=== PATIENT | female | born 1950 | race African-American/Black ===

== ENCOUNTER 2018-02-07 15:24 | Emergency (ER) | payer MEDICARE ==
[2018-02-07 16:30] LABS: Troponin I 0.027 ng/mL (< 0.028)
== END 2018-02-07 17:05 | disposition home or self-care (01) ==
LOC: ERS 15:24
DX: J40 Bronchitis, not specified as acute or chronic (principal); R07.89 Other chest pain; I25.10 Atherosclerotic heart disease of native coronary artery without angina pectoris; I25.2 Old myocardial infarction; I10 Essential (primary) hypertension; E78.00 Pure hypercholesterolemia, unspecified; J44.9 Chronic obstructive pulmonary disease, unspecified; F17.210 Nicotine dependence, cigarettes, uncomplicated; Z71.6 Tobacco abuse counseling
CPT/HCPCS: 36415; 82553; 84484; 93005; 99406

== ENCOUNTER 2018-08-30 09:28 | Outpatient (CLI) | payer MEDICAID, MEDICARE ==
--- NOTE | 2018-08-30 11:41 | BD ---
DEXA BONE MINERAL DENSITOMETRY STUDY 08/30/2018 HISTORY: Postmenopausal. FINDINGS LUMBAR SPINE BMD (g/cm2) T-SCORE Z-SCORE L1 0.942 -0.4 1.4 L2 1.093 0.6 1.9 L3 1.199 1.0 2.5 L4 1.292 2.1 4.3 L1-L4 1.14 0.8 2.2 RIGHT FEMORAL NECK 0.766 -0.7 0.1 TOTAL FEMUR 0.876 -0.5 0.1 IMPRESSION: 1. Normal bone mineralization of the lumbar spine and left femoral neck. 2. The 10 year major osteoporotic risk fracture is 12%, with the 10 year hip fracture risk of 2.6%. POS: [facility]
== END 2018-08-30 09:29 | disposition home or self-care (01) ==
LOC: BICMAMMO 09:28
PROVIDERS: ATTEND Family Medicine
DX: Z12.31 Encounter for screening mammogram for malignant neoplasm of breast (principal); Z01.419 Encounter for gynecological examination (general) (routine) without abnormal findings; Z13.820 Encounter for screening for osteoporosis; Z78.0 Asymptomatic menopausal state
CPT/HCPCS: 77063; 77067; 77080

== ENCOUNTER 2018-11-21 20:08 | Observation (INO) | payer MEDICARE ==
[2018-11-21] MEDS ORDERED: cloNIDine 0.1 MG TAB PO PRN (22:50)
[2018-11-21] MEDS ORDERED: Nitroglycerin 0.4 MG TAB (25 Tab Bottle) SL PRN (22:50)
[2018-11-21] MEDS ORDERED: Acetaminophen 325 MG TAB PO PRN (22:51)
[2018-11-21] MEDS ORDERED: Zolpidem Tartrate 5 MG TAB PO PRN (22:51)
[2018-11-21] MEDS ORDERED: Ondansetron ODT 4 MG TAB PO PRN (22:51)
[2018-11-21] MEDS ORDERED: Calcium Carbonate 500 MG ChewTAB PO PRN (22:51)
[2018-11-21] MEDS ORDERED: Senokot S 8.6-50 MG TAB PO PRN (22:51)
[2018-11-21] MEDS ORDERED: Bisacodyl 5 MG TAB PO PRN (22:51)
[2018-11-21] MEDS ORDERED: Ondansetron PF 4 MG/2 ML Vial IVP PRN (22:51)
[2018-11-21] MEDS ORDERED: Sodium Chloride 0.9% 1,000 ML IV SCH (23:00)
[2018-11-22] MEDS ORDERED: cefTRIAXone\\ROCEPHIN 1 GM in Sodium Chloride 0.9% 100 ML IVPB SCH (03:00)
[2018-11-22] MEDS ORDERED: Azithromycin 500 MG in Sodium Chloride 0.9% 250 ML 250 ML IVPB SCH (04:00)
[2018-11-22 05:11] LABS: #Basophils 0.1 thou/uL (0.0-0.2); #Eosinphils 0.2 thou/uL (0.0-0.7); #Lymphocytes 1.2 thou/uL (1.20-3.40); #Monocytes 0.5 thou/uL (0.11-0.59); #Neutrophils 3.6 thou/uL (1.40-6.50); %Basophils 1.2 % (0.0-1.0); %Eosinophils 4.4 % (0.0-10.0); %Lymphocytes 22.3 % (21.0-51.0); %Monocytes 8.3 % (0.0-10.0); %Neutrophils 63.8 % (42.0-75.0); Hemoglobin 14.3 g/dL (12.0-16.0); Mean Corpuscular HGB CONC 32.6 g/dL (32.0-36.0); Mean Corpuscular Volume 85.7 fL (78.0-98.0); Mean Platelet Volume 7.9 fL (7.4-10.4); Platelet Count 221 thou/uL (130-400); RBC Distribution Width 14.2 % (11.5-14.5); Red Blood Cell (RBC) Count 5.12 mill/uL (4.20-5.40); White Blood Cell (WBC) Count 5.6 thou/uL (4.8-10.8)
[2018-11-22 05:30] LABS: Anion Gap 13 mmol/L (10-20); BUN (Urea Nitrogen) 17 mg/dL (9.8-20.1); Calc. Creatinine Clearance 55 mL/min (70-130); Calcium 9.6 mg/dL (7.8-10.44); Carbon Dioxide 27 mmol/L (23-31); Cardiac Risk 3.7 (Less than 4.5); Chloride 103 mmol/L (98-107); Cholesterol 149 mg/dl (< 200 Desired); Estimated GFR-MDRD 56; Glucose 97 mg/dL (80-115); HDL Cholesterol 40 mg/dL (>60 Neg Risk); LDL Cholesterol, Calculated 89 mg/dL; Potassium 3.5 mmol/L (3.5-5.1); Sodium 139 mmol/L (136-145); Triglycerides 99 mg/dL (Less than 150)
[2018-11-22] MEDS ORDERED: Clopidogrel Bisulfate 75 MG TAB PO SCH (09:00)
[2018-11-22] MEDS ORDERED: Carvedilol 6.25 MG TAB PO SCH (09:00)
[2018-11-22] MEDS ORDERED: Famotidine/PF 20 mg/2ml Vial SLOW IVP SCH (09:00)
[2018-11-22] MEDS ORDERED: Pregabalin 25 MG CAP PO SCH (09:00)
[2018-11-22] MEDS ORDERED: Potassium Chloride 20 MEQ TAB PO SCH (09:00)
[2018-11-22] MEDS ORDERED: Famotidine 20 MG TAB PO SCH ×2 (09:00)
[2018-11-22] MEDS ORDERED: Enoxaparin Sodium 30 MG/0.3 ML SYRINGE SC SCH (09:00)
--- NOTE | 2018-11-22 13:43 | CON ---
DATE OF CONSULTATION: 11/22/2018 REASON FOR CONSULTATION: Chest pain. PRIMARY CUSTOMER RETENTION REPRESENTATIVE: Nash Jc MD HISTORY OF PRESENT ILLNESS: Ms. Travis is a pleasant 68-year-old female, who comes to the hospital for chest pain. She was cooking for the New Years yesterday morning and she started having a chest tightness in the middle part of her chest, reminded her when she had angina in the past. She took some sublingual nitroglycerin and her pain got a little bit better. When she told her family members, they encouraged her to come to the hospital. She is currently chest pain-free. She is ruled out with negative troponins x1 here in the hospital. She has a history of coronary artery disease. She had a heart catheterization back in February [address] Jc, at which point, she had a stent to her LAD for an 80% lesion. She had moderate disease otherwise. She also has first RPL stenosis that is about 70% that is not amenable to revascularization by catheter. She has been treated medically for this. She had a stress test in the office in November 2017, and this was unremarkable for ischemia and her EF was normal. Currently, she feels better. She has been dealing with this cough with what appears to be a bronchitis in the last few weeks and she has been coughing a lot more lately as well and it hurts when she coughs. PAST MEDICAL HISTORY: 1. COPD. 2. Ongoing tobacco abuse. 3. Hypertension. 4. Bronchial asthma. 5. Peripheral vascular disease, status post stents to the bilateral lower extremities. 6. Degenerative joint disease of the spine. 7. Coronary artery disease, status post stenting to the LAD as well. PAST SURGICAL HISTORY: 1. Hip replacement x2. 2. Bilateral tubal ligation. SOCIAL HISTORY: with 5 kids. Current smoker, half pack a day. Occasional alcohol use. No drug use. 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 OUTPATIENT MEDICATIONS: Include: 1. Clonidine 0.1 mg b.i.d. 2. Lyrica. 3. Pravastatin 40 mg at bedtime. 4. Potassium chloride 20 mEq a day. 5. Sublingual nitroglycerin p.r.n. 6. Lisinopril 40 mg a day. 7. Hydrochlorothiazide 25 mg a day. 8. Plavix 75 mg a day. 9. Vitamin D3. 10. Coreg 12.5 b.i.d. 11. Aspirin 81 a day. 12. Amlodipine 5 mg a day. ALLERGIES: NO KNOWN DRUG ALLERGIES. REVIEW OF SYSTEMS: 12-point review of systems was done and was found to be negative unless stated in the history of present illness. FAMILY HISTORY: Mother with an MT including children with hypertension, diabetes. PHYSICAL EXAMINATION: VITAL SIGNS: Temperature 98.4, pulse 69, respiratory rate 16, saturations 96% on 2 L nasal cannula, blood pressure 182/77. GENERAL: Awake, alert, oriented x3. No distress. HEENT: Normocephalic and atraumatic. NECK: Supple. LUNGS: Reduced breath sounds bilaterally. CARDIOVASCULAR: S1 and S2. No S3 or S4. She has a grade 2/6 systolic murmur at right upper sternal border. ABDOMEN: Soft. Positive bowel sounds. EXTREMITIES: No edema. SKIN: Warm and dry. LABORATORY DATA: Laboratory work was reviewed. CBC and chemistries are unremarkable. Troponin is negative x2. EKG was reviewed. Echocardiogram was reviewed. ASSESSMENT: 1. Chest pain. 2. Coronary artery disease. 3. Vtcomspf-[id number]-nqkzbq aortic insufficiency. PLAN: 1. We will get a urine drug screen. 2. We will get one more set of troponins. If this is negative, we will plan on trying her antianginal regimen. We will probably go up on the Imdur to 90 mg a day. 3. She will follow up with Dr. Jc's office in 1 month and if her pain continues, she may need a repeat heart catheterization. 4. Tobacco cessation counseling was performed. 5. Pending results of repeat troponin and urine drug screen. Job ID: [id number]
[2018-11-22 14:49] LABS: Amphetamine Not Detected (NotDetected); Barbiturates Screen Not Detected (NotDetected); Benzodiazepine Screen Not Detected (NotDetected); Cocaine Metabolite Screen Not Detected (NotDetected); Medtox Control Line Valid? VALID (VALID); Medtox Reader # READER 4; Methadone Not Detected (NotDetected); Methamphetamine Not Detected (NotDetected); Opiate Screen Detected (NotDetected); Oxycodone Screen Not Detected (NotDetected); Phencyclidine (PCP) Not Detected (NotDetected); THC/Cannabinoid Screen Not Detected (NotDetected); Tricyclic Screen Not Detected (NotDetected)
[2018-11-22 15:39] VITALS: TEMP 98.8
[2018-11-22 16:02] VITALS: BP 179/79
[2018-11-22] MEDS ORDERED: ISOVUE-370 76%-LOCM 1 ML ONE (16:19)
--- NOTE | 2018-11-22 17:08 | CT ---
CT PULMONARY ANGIOGRAM CHEST WITH 3D RENDERIN11/22/18 HISTORY: 68-year-old female with history of chest pain and shortness of breath for two days. There are diffuse extensive scattered emphysema changes throughout both lungs primarily in the upper and mid lung zones. There is dilatation of the main pulmonary artery measuring up to approximately 3. 7 cm. There appears to be dilatation of the left atrium. There are three vessel coronary artery calci fic changes. No convincing CT evidence for acute pulmonary emboli. No pleural effusion or pericardial effusion. No evidence for aortic aneurysm. Visualized upper abdomen is unremarkable. There is promi nent left sided arterial vascular calcifications. IMPRESSION: No convincing CT evidence for acute pulmonary embolism. Scattered chronic lung changes with some mini mal bibasilar posterior thickening extensive diffuse emphysema changes throughout the lungs particul ward the upper had mid lung zones. Some dilatation of the left main pulmonary artery and left atrium. Three vessel coronary artery calcific changes. No acute pleural effusion or pericardial effusion. POS: [facility]
--- NOTE | 2018-11-22 17:52 | DIS ---
DATE OF ADMISSION: 11/21/2018 DATE OF DISCHARGE: 11/22/2018 PRIMARY CARE PROVIDER: Valerie Gillette MD DISCHARGE DIAGNOSES: 1. Chest pain. 2. Most likely musculoskeletal etiology for the chest pain. CONSULATION DURING THIS HOSPITALIZATION: Cardiology, Dr. Hubbard. CONDITION OF PATIENT ON THE DAY OF DISCHARGE: Stable. I assessed Ms. Travis on the day of discharge. She denies any chest pain or shortness of breath. Vital signs are stable. S1 and S2 are heard, regular. Lungs are clear to auscultation bilaterally. DISCHARGE MEDICATIONS: 1. Amlodipine 5 mg daily. 2. Clonidine 0.1 mg 2 times a day. 3. Potassium chloride 20 mEq daily. 4. Pravastatin 40 mg at bedtime. 5. Lyrica 25 mg two times a day. 6. Aspirin 81 mg daily. 7. Coreg 12.5 mg 2 times a day. 8. Vitamin D3 2000 units daily. 9. Plavix 75 mg daily. 10. Hydrochlorothiazide 25 mg daily. 11. Lisinopril 40 mg daily. 12. Nitroglycerin p.r.n. 13. Isosorbide mononitrate has been started during this admission at 30 mg daily. HOSPITAL COURSE: Ms. Travis is a pleasant 68-year-old lady who was admitted to [facility] on November 21, 2018 for chest pain. She was seen by Cardiology Service. Her cardiac enzymes were normal. She has been started on isosorbide mononitrate for anginal control and has been cleared for discharge by Cardiology Service. She had an elevated D-dimer. However, CT angiogram of the chest did not show any convincing evidence of acute pulmonary embolism. She has scattered chronic lung changes with some minimal bibasilar posterior thickening, extensive diffuse emphysema changes throughout the lungs. She has some dilatation of the left main pulmonary artery and left atrium. A 2D echocardiogram done during this hospitalization showed left ventricular ejection fraction of 55% to 60%, severely dilated left atrium, moderately enlarged right atrium size, [id number] aortic regurgitation, mild mitral regurgitation, mild tricuspid regurgitation, and mild pulmonic regurgitation. Her chest pain resolved following admission. She is being discharged home in a stable condition. On November 22, she has a white count of 5600, hemoglobin 14.3, platelet count 221,000, mildly elevated creatinine of 1.15, otherwise unremarkable comprehensive metabolic profile. Urine toxicology screen was positive for opiates. DISCHARGE DESTINATION: Home. Many thanks for allowing me to participate in your patient's care. Please feel free to contact me with any questions or concerns. Job ID: [id number]
[2018-11-22] MEDS ORDERED: Pravastatin Sodium 40 MG TAB PO SCH (21:00)
== END 2018-11-22 17:46 | disposition home or self-care (01) ==
LOC: ERS 20:08 → 2SW 22:25
PROVIDERS: ADMIT Internal Medicine; ATTEND Internal Medicine
DX: R07.9 Chest pain, unspecified (principal); I25.10 Atherosclerotic heart disease of native coronary artery without angina pectoris; I10 Essential (primary) hypertension; I73.9 Peripheral vascular disease, unspecified; I35.1 Nonrheumatic aortic (valve) insufficiency; J44.9 Chronic obstructive pulmonary disease, unspecified; M47.9 Spondylosis, unspecified; F17.210 Nicotine dependence, cigarettes, uncomplicated; Z95.5 Presence of coronary angioplasty implant and graft; Z96.649 Presence of unspecified artificial hip joint; Z98.51 Tubal ligation status; Z79.02 Long term (current) use of antithrombotics/antiplatelets; Z79.82 Long term (current) use of aspirin; Z79.899 Other long term (current) drug therapy
CPT/HCPCS: 71275; 80048; 80061; 80306; 84484 ×2; 85025; 85379; 93306; 94640 ×2; 94760 ×2; 96361; 96365; 96367; 96372; 96375; 96376; 99285; G0378 ×2; 36415; J0456; J0696; J1650; J2920; J7050; J7620; S0028

== ENCOUNTER 2019-10-15 15:39 | Observation (INO) | payer MEDICARE ==
[2019-10-15] MEDS ORDERED: Nitroglycerin 2% Ointment 1 INCH/1 GM Packet ONE (16:01)
[2019-10-15] MEDS ORDERED: Acetaminophen 325 MG TAB PO PRN ×2 (17:29→21:39)
[2019-10-15] MEDS ORDERED: Ondansetron PF 4 MG/2 ML Vial IVP PRN ×2 (17:29→21:39)
[2019-10-15] MEDS ORDERED: HYDROcodone/Acetaminophen 5/325 mg Tablet PO PRN ×2 (17:29)
[2019-10-15] MEDS ORDERED: Ondansetron ODT 4 MG TAB SL PRN (17:29)
[2019-10-15 17:40] VITALS: BMI 28.9
[2019-10-15] MEDS ORDERED: Aspirin Chewable 81 MG TAB PO SCH (18:00)
[2019-10-15] MEDS: Nitroglycerin 2% Ointment 1 INCH/1 GM Packet TOP SCH (18:33)
[2019-10-15 19:06] LABS: Troponin I Less than 0.010 ng/mL (< 0.028)
[2019-10-15] MEDS ORDERED: hydrALAZINE 20 MG/ML VIAL SLOW IVP PRN (19:29)
[2019-10-15] MEDS: Carvedilol 25 MG TAB PO SCH (19:57)
[2019-10-15] MEDS: Pregabalin 75 MG CAP PO SCH (19:58)
[2019-10-15] MEDS ORDERED: Pravastatin Sodium 40 MG TAB PO SCH (21:00)
[2019-10-15] MEDS ORDERED: cloNIDine 0.1 MG TAB PO SCH (21:00)
[2019-10-15] MEDS ORDERED: Acetaminophen 650 MG Suppository PR PRN (21:39)
[2019-10-15] MEDS ORDERED: Ondansetron ODT 4 MG TAB PO PRN (21:39)
[2019-10-15 22:46] LABS: Troponin I 0.022 ng/mL (< 0.028)
--- NOTE | 2019-10-15 23:44 | HP ---
TIME OF ASSESSMENT: 2100 hours. CHIEF COMPLAINT: Chest pain. HISTORY OF PRESENT ILLNESS: Ms Reyna Travis is a pleasant 68-year-old woman who presents with complaints of left-sided chest pain that started yesterday evening. She states she tends to have intermittent chest pain and has a known history of coronary artery disease with previous stents. She follows with Dr. Jc. The patient states that she usually takes nitroglycerin for pain, which helps, but since yesterday the pain has been persistent. She states it comes and goes and she describes it as a pressure on the left side of her chest. She thought it was being exacerbated by her chronic cough and denies any sputum or hemoptysis. Denies any shortness of breath. She has a known history of COPD and states she feels her breathing and cough is at baseline. Denies having any recent fevers, chills, or sweats. The patient states the pain was a 4/10 in severity yesterday evening and this morning became more severe. She decided to seek medical attention. She presented to the emergency department, where an EKG was done showing sinus arrhythmia with a rate of 73. She had occasional PVCs. No ST changes or T-wave abnormalities. The patient was given Nitro-Bid 1 inch topical. She had a chest x-ray done, which showed no acute cardiopulmonary processes. Initial troponin was negative. The patient states she has undergone a stress test in the last year. At this present time, the patient denies having any pain at all. She states this has pretty much gone since Nitro-Bid was placed. Denies any nausea, vomiting. No diaphoresis. No abdominal pain or cramping. Reports having regular bowel movements. No urinary symptoms. All other review of systems apart from those mentioned above are negative. PAST MEDICAL HISTORY: 1. Coronary artery disease. 2. COPD. 3. Hypertension. 4. Asthma. 5. Neuropathy. 6. History of MIs x2. PAST SURGICAL HISTORY: 1. Cardiac stents. 2. Hip replacement. SOCIAL HISTORY: The patient reports smoking one pack a day. Denies any alcohol consumption or illicit drug use. ALLERGIES: NO KNOWN DRUG ALLERGIES. CURRENT MEDICATIONS: 1. Lyrica. 2. Carvedilol. 3. Pravastatin. 4. Amlodipine. 5. Lisinopril. 6. Isosorbide mononitrate. 7. Clopidogrel. 8. Clonidine. 9. Potassium chloride. 10. Nitrostat sublingual. PHYSICAL EXAMINATION: GENERAL: The patient appears well developed, well nourished, is in no acute distress. VITAL SIGNS: Temperature 97.9, pulse 67, respirations 18, O2 saturation 96% on room air, blood pressure 157/68. HEENT: Normocephalic and atraumatic. Pupils are equal, round, and reactive to light. Sclerae without icterus. Oropharynx is clear. NECK: Supple without lymphadenopathy. LUNGS: Clear to auscultation bilaterally without wheezes, rales, or rhonchi. CARDIAC: Regular rate and rhythm without audible murmurs, rubs, or gallops. ABDOMEN: Soft, nontender, nondistended. Normoactive bowel sounds present. EXTREMITIES: No lower leg swelling or edema. NEUROLOGIC: Alert and oriented x3. SKIN: Without rash or jaundice. LABORATORY DATA: White count 6.3, hemoglobin 14.7, hematocrit 49.1, platelets 302, neutrophils 49.3%. Sodium 139, potassium 3.7, BUN 9, creatinine 0.91, GFR 74, glucose 87, calcium 9.9, total bilirubin 0.3, AST 21, ALT 24, alkaline phosphatase 97. CK 30. Troponin negative x2. BNP 143.9, total protein 7.7, albumin 3.9. Lipid panel done in March 2019. Triglycerides 116, cholesterol 158, LDL 89, HDL 46. IMAGING DATA: As mentioned above in HPI. IMPRESSION AND PLAN: Ms. Travis is a 68-year-old woman, presenting with chest pain who has been admitted for management of the following; 1. Acute coronary syndrome rule out. The patient with troponins negative x2 and EKG unremarkable. We will continue to trend troponins. She states she had a recent stress test with Dr. Jc less than a year ago and states it was normal. We will need to obtain these records. Consultation placed with Dr. Jc for tomorrow. The patient is pain free at present. 2. Hypertension. Monitor blood pressure. Resume home medications once verified. P.r.n. ordered. 3. Chronic obstructive pulmonary disease. Resume home medications once verified. P.r.n. DuoNeb. 4. Coronary artery disease. Resume home medications once verified. 5. Gastrointestinal prophylaxis. Famotidine. 6. Deep venous thrombosis prophylaxis. The patient is ambulatory. Mechanical SCDs ordered. 7. Code status full. Her surrogate decision maker is her daughter, Vasiliy Reilly. The patient's case discussed with attending who agrees with plan of care as described above. Job ID: [id number]
[2019-10-16] MEDS: Nitroglycerin 2% Ointment 1 INCH/1 GM Packet TOP SCH (00:25)
[2019-10-16 05:24] LABS: #Basophils 0.1 thou/uL (0.0-0.2); #Eosinphils 0.2 thou/uL (0.0-0.7); #Monocytes 0.7 thou/uL (0.11-0.59); #Neutrophils 2.3 thou/uL (1.40-6.50); %Basophils 0.9 % (0.0-1.0); %Eosinophils 3.8 % (0.0-10.0); %Lymphocytes 38.5 % (21.0-51.0); %Monocytes 12.5 % (0.0-10.0); %Neutrophils 44.2 % (42.0-75.0); Mean Corpuscular Hemoglobin 27.2 pg (27.0-31.0); Mean Corpuscular Volume 85.1 fL (78.0-98.0); Mean Platelet Volume 7.9 fL (7.4-10.4); Platelet Count 240 thou/uL (130-400); RBC Distribution Width 14.3 % (11.5-14.5); Red Blood Cell (RBC) Count 5.15 mill/uL (4.20-5.40); White Blood Cell (WBC) Count 5.3 thou/uL (4.8-10.8)
[2019-10-16 05:44] LABS: Anion Gap 12 mmol/L (10-20); BUN (Urea Nitrogen) 13 mg/dL (9.8-20.1); Calc. Creatinine Clearance 68 mL/min (70-130); Calcium 9.6 mg/dL (7.8-10.44); Carbon Dioxide 27 mmol/L (23-31); Chloride 100 mmol/L (98-107); Estimated GFR-MDRD 70; Glucose 90 mg/dL (80-115); Potassium 3.4 mmol/L (3.5-5.1); Sodium 136 mmol/L (136-145)
[2019-10-16] MEDS ORDERED: Lisinopril 20 MG TAB PO SCH (09:00)
[2019-10-16] MEDS ORDERED: Amlodipine 10 MG TAB PO SCH (09:00)
[2019-10-16] MEDS ORDERED: FLU VACC TS2019-20(65YR UP)/PF 180 MCG/0.5 ML SYRINGE IM ONE (09:00)
[2019-10-16] MEDS ORDERED: Aspirin Chewable 81 MG TAB PO SCH (09:00)
[2019-10-16] MEDS ORDERED: Hydrochlorothiazide 25 MG TAB PO SCH (09:00)
[2019-10-16] MEDS ORDERED: Isosorbide Mononitrate (ER) 30 MG TAB PO SCH (09:00)
[2019-10-16] MEDS ORDERED: Clopidogrel Bisulfate 75 MG TAB PO SCH (09:00)
[2019-10-16] MEDS ORDERED: Famotidine/PF 20 mg/2ml Vial SLOW IVP SCH (09:00)
[2019-10-16] MEDS: Pregabalin 75 MG CAP PO SCH (09:22)
[2019-10-16] MEDS: Carvedilol 25 MG TAB PO SCH (09:30)
[2019-10-16] MEDS ORDERED: Enoxaparin Sodium 80 MG/0.8 ML SYRINGE SC SCH (10:15)
[2019-10-16] MEDS ORDERED: Enoxaparin Sodium 30 MG/0.3 ML SYRINGE SC SCH (10:15)
--- NOTE | 2019-10-16 11:07 | CON ---
DATE OF CONSULTATION: PRIMARY COMBINER OPERATOR: Dr. Nash Jc. REASON FOR CONSULTATION: Chest pressure. HISTORY OF PRESENT ILLNESS: Ms. Reyna Travis is a very pleasant patient with history of coronary artery disease. She has had a long history of chest pains. She did have stent implantation by Dr. Jc in 2006. The patient had successful PTCA and stent placement in the right coronary artery, 3.5 x 16 Liberte stent. The patient did well following that. She did have recurrent chest pain in 2012 and was found to have no obstructive stenosis in the right coronary artery, but heavy calcification, borderline circumflex disease that was negative with an FFR, and a 50% to 70% stenosis in the LAD. She was treated medically at that time. The patient re-presented with increasing chest pain in 2016. At that time, underwent cardiac catheterization and was found to have worsening of the LAD lesion. It was treated with a 2.5 x 12 mm drug-coated stent, Synergy, and post dilated with a 3 mm x 8 mm balloon with good result. The patient re-presented with chest pain in November of this year, had negative cardiac enzyme and was released home. She underwent stress testing about 10 months ago in the office with a PET scan showing no ischemia. The patient came to the hospital yesterday with chest pain. She said it was under the left breast, went to the middle part of her chest, it ultimately resolved with nitroglycerin. We have been reconsulted. MEDICATIONS: The patient takes; 1. Nitroglycerin as needed. 2. Pravastatin. 3. Lyrica. 4. Potassium. 5. Plavix. 6. Hydrochlorothiazide and lisinopril. 7. Aspirin. 8. Carvedilol. 9. Amlodipine. 10. Isosorbide. ALLERGIES: UNKNOWN. SOCIAL HISTORY: Smokes she said about 1/2 pack cigarettes per day. REVIEW OF SYSTEMS: CONSTITUTIONAL: No significant weight gain or loss. VISION: No changes. HEARING: No changes. PULMONARY: No cough or wheezing. GASTROINTESTINAL: No nausea, vomiting, or diarrhea. SKIN: No rashes. NEUROLOGIC: No unilateral weakness or numbness. PSYCHIATRIC: No unusual depression or anxiety. PHYSICAL EXAMINATION: GENERAL: This is a pleasant 68-year-old, -[place] female. VITAL SIGNS: Blood pressure 159/72, pulse 60. HEENT: Eyes, sclerae are nonicteric. Mouth, mucous membranes moist. NECK: Supple. No lymphadenopathy. LUNGS: Clear. CARDIAC: Normal S1, normal S2. There is no murmur, rub, or gallop. ABDOMEN: Soft and nontender. EXTREMITIES: Warm and dry. No clubbing or cyanosis. There is no edema. Peripheral pulses, I do not feel femoral pulse on the right. I do not feel any popliteal or dorsalis pedis or posterior tibial pulses on the right. On the left, I do feel a femoral pulse but nothing below that, no popliteal pulses. She had a recent vascular study in the office showing bilateral disease including some in the iliacs and the common femorals. DIAGNOSTIC STUDIES: The EKG does not show any EKG changes with chest pain. The troponin levels were in the negative range. The peak was 0.022, indeterminate is 0.028. I did review the cardiac catheterization films, showed the stent placed in 2017 was widely patent at the conclusion of the procedure, did have to stent across a moderate-size diagonal branch, but that looks widely patent. The circumflex had some ostial disease in the 2nd marginal branch, looks like not amenable to percutaneous therapy, and the right coronary artery had diffuse 50% lesion, it is a heavily calcified vessel, not likely a candidate for percutaneous intervention on that vessel. PLAN: 1. We will repeat stress testing to risk stratify. 2. If the stress test is abnormal, consideration for repeat catheterization. Job ID: [id number]
--- NOTE | 2019-10-16 14:40 | PDOC.HOSPP ---
- Subjective Encounter Date: 10/16/19 Encounter Time: 09:30 Subjective: Patient seen and examined for CP. No new CP/SOB. No new complaints. No overnight events - Objective Vital Signs & Weight: Vital Signs (12 hours) Temp Pulse Resp BP Pulse Ox 10/16/19 11:00 98.3 F 51 L 20 168/73 H 95 10/16/19 09:22 60 10/16/19 07:28 98.5 F 60 16 159/72 H 94 L 10/16/19 03:50 97.9 F 54 L 15 140/65 94 L Weight Weight 173 lb 12.8 oz I&O: 10/15/19 10/16/19 10/17/19 06:59 06:59 06:59 Intake Total 520 Output Total 800 Balance -280 Result Diagrams: 10/16/19 05:01 10/16/19 05:01 EKG Reviewed by me: Yes (Tele SR) Hospitalist ROS - Review of Systems Cardiovascular: denies: chest pain, palpitations, orthopnea, paroxysmal noc. dyspnea, edema, light headedness, other Gastrointestinal: denies: nausea, vomiting, abdominal pain, diarrhea, constipation, melena, hematochezia, other - Medication Medications: Active Medications Generic Name Dose Route Start Last Admin Trade Name Freq PRN Reason Stop Dose Admin Amlodipine Besylate 10 mg 10/16/19 09:00 10/16/19 09:22 Norvasc PO 10 mg DAILY JO Administration Aspirin 81 mg 10/16/19 09:00 10/16/19 09:22 Aspirin Chewable PO 81 mg DAILY JO Administration Carvedilol 12.5 mg 10/15/19 21:00 10/16/19 09:30 Coreg PO Not Given BID JO Cholecalciferol 2,000 units 10/15/19 21:00 10/16/19 09:23 Vitamin D3 PO 2,000 units BID JO Administration Clonidine 0.1 mg 10/15/19 21:00 10/15/19 19:57 Catapres PO 0.1 mg HS JO Administration Clopidogrel Bisulfate 75 mg 10/16/19 09:00 10/16/19 09:23 Plavix PO 75 mg DAILY JO Administration Famotidine 20 mg 10/16/19 09:00 10/16/19 09:22 Pepcid SLOW IVP 20 mg Q12HR JO Administration Hydrochlorothiazide 25 mg 10/16/19 09:00 10/16/19 09:22 Hydrochlorothiazide PO 25 mg DAILY JO Administration Isosorbide Mononitrate 30 mg 10/16/19 09:00 10/16/19 09:30 Imdur Er PO Not Given DAILY JO Lisinopril 40 mg 10/16/19 09:00 10/16/19 09:23 Zestril PO 40 mg DAILY JO Administration Pravastatin Sodium 40 mg 10/15/19 21:00 10/15/19 19:58 Pravachol PO 40 mg HS JO Administration Pregabalin 75 mg 10/15/19 21:00 10/16/19 09:22 Lyrica PO 75 mg BID JO Administration Sodium Chloride 10 ml 10/15/19 21:39 10/16/19 09:24 Flush - Normal Saline IVF 10 ml Q12HR PRN Administration Saline Flush - Exam General Appearance: NAD Neck: supple, no JVD Heart: RRR, no gallops, no rubs, normal peripheral pulses Respiratory: CTAB, no rales, no ronchi, normal chest expansion Gastrointestinal: soft, non-distended, normal bowel sounds, no guarding, no rigidity Extremities: no edema Psychiatric: normal affect, A&O x 3 Hosp A/P - Plan DVT proph w/SCDs CP CAD s/p stent HTN HLD Asthma/COPD Hypokalemia CKD 2 PLAN: Stress test today Received 1 mg/kg Lovenox per Cardiology Cont ASA/Plavix/BB/Statins Cont other meds Replace Potassium
[2019-10-16] MEDS ORDERED: Potassium Chloride 20 MEQ TAB PO SCH (14:45)
[2019-10-16 15:52] VITALS: BP 179/81; TEMP 97.7
[2019-10-16] MEDS ORDERED: Regadenoson 0.4 MG/5 ML SYRINGE ONE (16:08)
--- NOTE | 2019-10-16 16:19 | NM ---
MYOCARDIAL PERFUSION SCAN WITH SPECT IMAGING: HISTORY: Chest pain. TECHNIQUE/FINDINGS: Examination is performed using 28.9 mCi 99m-technetium sestamibi on the stress and 9.5 on the resting images. This shows a normal distribution of radiopharmaceutical. No signs of ischemia or scar. WALL MOTION: There is symmetric contractility to the ventricle. LEFT VENTRICULAR EJECTION FRACTION: The calculated left ventricular ejection fraction is 67%. IMPRESSION: Unremarkable myocardial perfusion scan. POS: [facility]
--- NOTE | 2019-10-17 09:30 | DIS ---
DATE OF ADMISSION: 10/15/2019 DATE OF DISCHARGE: 10/16/2019 DISCHARGE DISPOSITION: Home. FOLLOWUP: 1. Follow up with primary care physician, Dr. Gillette in 1 week. 2. Follow up with Dr. Jc in 2 to 3 weeks. ALLERGIES: NO KNOWN DRUG ALLERGIES. DISCHARGE MEDICATIONS: Same as admission medication. The patient was seen and examined on the day of discharge. Denies any new complaints. No chest pain, shortness of breath, palpitations reported. BRIEF HOSPITAL COURSE: The patient is a 68-year-old female with coronary artery disease, status post stent placement, presented to the emergency room with chest discomfort. Please refer to the history and physical for further details. The patient was admitted to the hospital with a diagnosis of chest discomfort rule out acute coronary syndrome. Serial troponins remained negative. She was evaluated by Cardiology, Dr. Fleming. She also received 1 mg/kg Lovenox 1 dose on the day of discharge. Dr. Fleming recommended a stress test which was negative for reversible ischemia. She has been cleared by Cardiology for discharge. The patient was advised to follow up with Dr. Jc as outpatient. The patient was found to have potassium of 3.4, which has been replaced. She will benefit from repeat labs after 1 to 2 weeks. FINAL DIAGNOSES: 1. Chest discomfort, acute coronary syndrome ruled out. 2. Coronary artery disease, status post stent placement in the past. 3. Hypertension. 4. Hyperlipidemia. 5. Hypokalemia. 6. History of asthma/chronic obstructive pulmonary disease. 7. Chronic kidney disease stage 2. PLAN: Plan of care was discussed with the patient in detail. She stated understanding. Job ID: [id number]
== END 2019-10-16 18:43 | disposition home or self-care (01) ==
LOC: ERS 15:39 → 2SW 16:19
PROVIDERS: ADMIT Internal Medicine; ATTEND Internal Medicine
DX: R07.89 Other chest pain (principal); I25.10 Atherosclerotic heart disease of native coronary artery without angina pectoris; I25.84 Coronary atherosclerosis due to calcified coronary lesion; J44.9 Chronic obstructive pulmonary disease, unspecified; I25.2 Old myocardial infarction; F17.210 Nicotine dependence, cigarettes, uncomplicated; E78.5 Hyperlipidemia, unspecified; I12.9 Hypertensive chronic kidney disease with stage 1 through stage 4 chronic kidney disease, or unspecified chronic kidney disease; N18.2 Chronic kidney disease, stage 2 (mild); E87.6 Hypokalemia; Z79.02 Long term (current) use of antithrombotics/antiplatelets; Z79.899 Other long term (current) drug therapy; Z95.5 Presence of coronary angioplasty implant and graft
CPT/HCPCS: 78452; 80048; 83735; 84484; 85025; 93005; 93017; 94760; 96372; 96374; 97139; 99285; A9500; G0378 ×3; 36415; J1650; J2785; S0028

== ENCOUNTER 2020-11-22 21:43 | Inpatient (IN) | payer MEDICARE ==
[~2020-11-22 21:43] MED LIST: Iopamidol-370 76% 500 ML 1 ML ONE
[2020-11-22] MEDS ORDERED: Ondansetron PF 4 MG/2 ML Vial ONE (22:10)
[2020-11-22] MEDS ORDERED: Nitroglycerin 2% Ointment 1 INCH/1 GM Packet ONE (22:10)
[2020-11-22] MEDS ORDERED: Morphine 4 MG/ML VIAL ONE (22:10)
[2020-11-22] MEDS ORDERED: methylPREDNISolone Sod Succ/PF 125 MG/2 ML VIAL ONE (22:10)
--- NOTE | 2020-11-22 22:27 | RAD ---
EXAM: CHEST ONE VIEW HISTORY: Chest pain for one week. Shortness of breath. COMPARISON: 10/02/2020 FINDINGS: Cardiac silhouette is magnified by projection. Pulmonary vasculature is within normal limits. There a re increased perihilar interstitial opacities present greater in the upper lung zones. No consolidation or pleural fluid is seen. Vascular calcifications are again seen in thoracic aorta. No other interval change. IMPRESSION: Mild increased interstitial densities in the upper lung zones in a perihilar location. Findings could be related to mild interstitial edema or infectious process. Follow-up to resolution is recommended.
[2020-11-22 22:33] LABS: Bacteria/HPF 4+ HPF (None Seen); Bilirubin Negative (Negative); Blood, Urine 1+ (Negative); Clarity Turbid (Clear); Glucose, Urine (Dipstick) Normal (Negative); Ketone, Urine Negative (Negative); Leukocyte Negative Leu/uL (Negative); Nitrite Negative (Negative); Protein, Urine (Dipstick) Negative (Neg-Trace); RBC/HPF 0-3 HPF (0-3); Specific Gravity, Urine 1.004 (1.002-1.036); Squamous Epithelial 0-3 HPF (0-3); Urobilinogen Normal mg/dL (Less than 2); WBC/HPF 0-3 HPF (0-3)
[2020-11-22 22:46] LABS: Eosinophils 3 % (0-10); Hemoglobin 14.1 g/dL (12.0-16.0); Lymphocytes 54 % (21-51); MDiff Complete? YES; Mean Corpuscular HGB CONC 32.4 g/dL (32.0-36.0); Mean Corpuscular Hemoglobin 29.3 pg (27.0-31.0); Mean Corpuscular Volume 90.4 fL (78.0-98.0); Mean Platelet Volume 7.6 fL (7.4-10.4); Monocytes 8 % (0-10); Neutrophil 30 % (42-75); Platelet Count 268 thou/uL (130-400); RBC Distribution Width 15.6 % (11.5-14.5); Reactive Lymphocytes 5 % (0-10); Red Blood Cell (RBC) Count 4.79 mill/uL (4.20-5.40); White Blood Cell (WBC) Count 6.7 thou/uL (4.8-10.8)
[2020-11-22 22:51] LABS: ALT (SGPT) 14 U/L (8-55); AST (SGOT) 17 U/L (5-34); Albumin 3.7 g/dL (3.4-4.8); Alkaline Phosphatase 96 U/L (40-110); Anion Gap 16 mmol/L (10-20); BUN (Urea Nitrogen) 12 mg/dL (9.8-20.1); Bilirubin, Total 0.2 mg/dL (0.2-1.2); Calc. Creatinine Clearance 0 mL/min (70-130); Calcium 8.7 mg/dL (7.8-10.44); Carbon Dioxide 25 mmol/L (23-31); Chloride 110 mmol/L (98-107); Globulin 3.3 g/dL (2.4-3.5); Glucose 90 mg/dL (83-110); Lipase 40 U/L (8-78); Magnesium 1.9 mg/dL (1.6-2.6); Sodium 147 mmol/L (136-145)
[2020-11-22] MEDS ORDERED: Albuterol 200 PUFF (6.7GM INHALER) ONE (22:58)
--- NOTE | 2020-11-22 23:55 | CT ---
CT ANGIOGRAM THORAX WITH IV CONTRAST AND 3-D RECONSTRUCTIONS CLINICAL INDICATION: Chest pain. COMPARISON: 10/02/2020 FINDINGS: Pulmonary arteries: No filling defects are seen in the pulmonary arteries to suggest a pulmonary embo daphney. Aorta: Vascular calcifications are seen in the thoracic aorta. Thoracic aorta is normal in caliber. T here is suboptimal opacification of the thoracic aorta., But no aortic dissection is appreciated. Lungs: Emphysematous changes are again seen in the lungs. Scattered areas of scarring are again prese nt. No consolidation or pleural fluid is identified. Stable 5 mm pulmonary nodules seen posterolateral left lung base. The large airways are patent aside from minimal linear filling defect in the right mainstem bronchus likely related to secretions. There is minimal peribronchial thickening in each lower lobe and to a lesser extent upper lobe suggesting bronchiolitis. Mediastinum: Prominent vascular calcifications are seen in the coronary arteries. No enlarged lymph n odes are seen by CT size criteria. However, mild soft tissue prominence is seen in each hilar region which may be related to mildly prominent lymph nodes. Thyroid gland: Grossly within normal limits allowing for artifact. Osseous structures: Multilevel degenerative changes are seen in the spine. Chest wall: No abnormality visualized. Upper abdomen: Within normal limits for phase of imaging. Vascular calcifications are seen in the upp er abdomen. IMPRESSION: 1. No CT evidence of a pulmonary embolus. 2. Chronic lung changes and evidence of COPD. 3. Suggestion of minimal peribronchial thickening predominantly in the lower lobes which can be seen with bronchiolitis. 4. Stable 5 mm pulmonary nodule left lower lobe.
[2020-11-23 01:39] VITALS: BMI 27.1
[2020-11-23] MEDS ORDERED: Ondansetron ODT 4 MG TAB PO PRN (02:01)
[2020-11-23] MEDS ORDERED: Calcium Carbonate 500 MG ChewTAB PO PRN (02:01)
[2020-11-23] MEDS ORDERED: Ondansetron PF 4 MG/2 ML Vial IVP PRN (02:01)
[2020-11-23] MEDS ORDERED: Acetaminophen 650 MG Suppository PR PRN (02:01)
[2020-11-23] MEDS ORDERED: Acetaminophen 325 MG TAB PO PRN (02:01)
--- NOTE | 2020-11-23 02:05 | PDOC.HHP ---
Hospitalist HPI - History of Present Illness chest pain History of Present Illness: Case of an 70y/o female with a pmhx of htn, copd, brochial asthma and cad who comes to hospital complaining of chest pain. patient refers she was on her usual state of health until about 1-2 weeks ago when she started with intermittent episodes of chest pain. she states pain is 8/10 retrosternal of crushing quality, associated with sob and palpitations. patient states pain usually comes on exertion, but recently has been happening at night whiles she is sleeping. she is also refering that episodes are getting more recurrent and frequent, they usually last a few minutes when present Hospitalist ROS - Review of Systems All other systems reviewed; all pertinent +/- noted in HPI/Subj Hospitalist History - Past Surgical History Past Surgical History: reports: Total Hip Replacement - Family History Family History: reports: no pertinent history - Social History Smoking Status: Current some day smoker Alcohol: reports: None Drugs: reports: none - Exam General Appearance: NAD, awake alert Eye: PERRL, anicteric sclera ENT: normocephalic atraumatic, no oropharyngeal lesions Neck: supple, symmetric, no JVD Heart: RRR, no murmur, no gallops Respiratory: CTAB, no wheezes, no rales Gastrointestinal: soft, non-tender Extremities: no cyanosis, no clubbing, no edema Skin: normal turgor, no lesions, no rashes Neurological: cranial nerve grossly intact, normal sensation to touch Musculoskeletal: normal tone, normal strength, no muscle wasting Psychiatric: normal affect, normal behavior, A&O x 3 Hospitalist Results - Labs Result Diagrams: 11/22/20 22:10 11/22/20 22:10 Lab results: WBC 6.7 thou/uL (4.8-10.8) 11/22/20 22:10 Hgb 14.1 g/dL (12.0-16.0) 11/22/20 22:10 Hct 43.4 % (36.0-47.0) 11/22/20 22:10 MCV 90.4 fL (78.0-98.0) 11/22/20 22:10 Plt Count 268 thou/uL (130-400) 11/22/20 22:10 Sodium 147 mmol/L (136-145) H 11/22/20 22:10 Potassium 4.0 mmol/L (3.5-5.1) 11/22/20 22:10 Chloride 110 mmol/L (98-107) H 11/22/20 22:10 Carbon Dioxide 25 mmol/L (23-31) 11/22/20 22:10 BUN 12 mg/dL (9.8-20.1) 11/22/20 22:10 Creatinine 0.89 mg/dL (0.6-1.1) 11/22/20 22:10 Glucose 90 mg/dL (83-110) 11/22/20 22:10 Calcium 8.7 mg/dL (7.8-10.44) 11/22/20 22:10 Total Bilirubin 0.2 mg/dL (0.2-1.2) 11/22/20 22:10 AST 17 U/L (5-34) 11/22/20 22:10 ALT 14 U/L (8-55) 11/22/20 22:10 Alkaline Phosphatase 96 U/L (40-110) 11/22/20 22:10 Troponin I 0.020 ng/mL (< 0.028) 11/23/20 00:54 B-Natriuretic Peptide 91.1 pg/mL (0-100) 11/22/20 22:10 Serum Total Protein 7.0 g/dL (6.0-8.3) 11/22/20 22:10 Albumin 3.7 g/dL (3.4-4.8) 11/22/20 22:10 Lipase 40 U/L (8-78) 11/22/20 22:10 Urine Ketones Negative mg/dL (Negative) 11/22/20 22:02 Urine Blood 1+ (Negative) A 11/22/20 22:02 Urine Nitrite Negative (Negative) 11/22/20 22:02 Ur Leukocyte Esterase Negative Everardo/uL (Negative) 11/22/20 22:02 Urine RBC 0-3 HPF (0-3) 11/22/20 22:02 Urine WBC 0-3 HPF (0-3) 11/22/20 22:02 Ur Squamous Epith Cells 0-3 HPF (0-3) 11/22/20 22:02 Urine Bacteria 4+ HPF (None Seen) A 11/22/20 22:02 Hospitalist H&P A/P - Problem (1) Chest pain Code(s): R07.9 - CHEST PAIN, UNSPECIFIED Status: Acute (2) CAD (coronary artery disease) Code(s): I25.10 - ATHSCL HEART DISEASE OF [place] CORONARY ARTERY W/O ANG PCTRS Status: Acute (3) COPD (chronic obstructive pulmonary disease) Status: Acute (4) Dyslipidemia Code(s): E78.5 - HYPERLIPIDEMIA, UNSPECIFIED Status: Acute (5) HTN (hypertension) Code(s): I10 - ESSENTIAL (PRIMARY) HYPERTENSION Status: Acute (6) Nicotine dependence Code(s): F17.200 - NICOTINE DEPENDENCE, UNSPECIFIED, UNCOMPLICATED Status: Acute (7) PVD (peripheral vascular disease) Code(s): I73.9 - PERIPHERAL VASCULAR DISEASE, UNSPECIFIED Status: Acute - Plan Plan: Case o fan 70y/o female with the stated pmhx who present to hospital with chest pain chest pain - ekg w/o ischemic st changes - initial troponin negative will trned - on cad protective medication with asa/plavix + betablocker acei + statin - prn nitro sublingual - stress test in am - consider cardiology evaluation if needed - cta w/o any acute changes copd - prn duo nebs
[2020-11-23] MEDS ORDERED: Aspirin 325 MG TAB PO SCH (02:15)
[2020-11-23 04:28] LABS: Hemoglobin A1c 5.1 % (4.0-6.0)
[2020-11-23 04:50] LABS: Troponin I 0.018 ng/mL (< 0.028)
[2020-11-23 04:51] LABS: ALT (SGPT) 16 U/L (8-55); AST (SGOT) 19 U/L (5-34); Albumin 3.5 g/dL (3.4-4.8); Alkaline Phosphatase 91 U/L (40-110); Anion Gap 16 mmol/L (10-20); BUN (Urea Nitrogen) 12 mg/dL (9.8-20.1); Bilirubin, Total 0.2 mg/dL (0.2-1.2); Calc. Creatinine Clearance 68 mL/min (70-130); Calcium 8.5 mg/dL (7.8-10.44); Carbon Dioxide 20 mmol/L (23-31); Cardiac Risk 2.5 (Less than 4.5); Chloride 110 mmol/L (98-107); Cholesterol 159 mg/dl (< 200 Desired); Globulin 3.8 g/dL (2.4-3.5); Glucose 142 mg/dL (83-110); HDL Cholesterol 63 mg/dL (>60 Neg Risk); LDL Cholesterol, Calculated 83 mg/dL; Potassium 4.7 mmol/L (3.5-5.1); Protein, Total 7.3 g/dL (6.0-8.3); Sodium 141 mmol/L (136-145); Triglycerides 64 mg/dL (Less than 150)
[2020-11-23 05:27] LABS: Band 4 % (5-11); Hemoglobin 13.5 g/dL (12.0-16.0); Lymphocytes 25 % (21-51); MDiff Complete? YES; Mean Corpuscular HGB CONC 32.3 g/dL (32.0-36.0); Mean Corpuscular Hemoglobin 29.6 pg (27.0-31.0); Mean Corpuscular Volume 91.5 fL (78.0-98.0); Mean Platelet Volume 7.6 fL (7.4-10.4); Neutrophil 70 % (42-75); Platelet Count 249 thou/uL (130-400); RBC Distribution Width 15.7 % (11.5-14.5); Red Blood Cell (RBC) Count 4.56 mill/uL (4.20-5.40); White Blood Cell (WBC) Count 3.7 thou/uL (4.8-10.8)
[2020-11-23] MEDS ORDERED: Amlodipine 5 MG TAB PO SCH ×2 (05:45→09:00)
[2020-11-23] MEDS: Nicotine 14 MG PATCH TD SCH (05:48)
[2020-11-23] MEDS: Nitroglycerin 0.4 MG TAB (25 Tab Bottle) SL PRN ×2 (08:17→08:23)
[2020-11-23] MEDS: Hydrochlorothiazide 25 MG TAB PO SCH (08:19)
[2020-11-23] MEDS: Lisinopril 20 MG TAB PO SCH (08:19)
[2020-11-23] MEDS ORDERED: Carvedilol 6.25 MG TAB PO SCH (09:00)
[2020-11-23] MEDS ORDERED: Enoxaparin Sodium 40 MG/0.4 ML SYRINGE SC SCH (09:00)
[2020-11-23] MEDS ORDERED: Communication Order-Pharmacy FS SCH (09:45)
[2020-11-23] MEDS ORDERED: Carvedilol 25 MG TAB PO SCH ×2 (09:51→11:00)
[2020-11-23] MEDS ORDERED: Enoxaparin Sodium 80 MG/0.8 ML SYRINGE SC SCH ×3 (09:53→21:00)
[2020-11-23] MEDS ORDERED: Aspirin 81 mg Enteric Coated Tablet PO SCH (10:00)
[2020-11-23 10:16] LABS: SARS-CoV-2 MS2 Positive; SARS-CoV-2 N Gene Negative; SARS-CoV-2 S Gene Negative; SARS-CoV-2 by NAA Not Detected (NotDetected); SARS-CoV-2 orf1ab Negative
--- NOTE | 2020-11-23 10:20 | CON ---
DATE OF CONSULTATION: 11/23/2020 REASON FOR CONSULTATION: Unstable angina. PRIMARY TOUR AGENT: Dr. Nash Jc. HISTORY OF PRESENT ILLNESS: Ms. Travis is a 70-year-old woman with history of coronary artery disease as will be outlined below. She has been having increasing amounts of chest pain and pressure at rest, requiring nitroglycerin and finally came to the emergency room. She did have some ST depression this morning with chest pain requiring nitroglycerin, currently pain-free. PAST MEDICAL HISTORY: She has a long cardiac history with previous percutaneous interventions. She underwent stent implantation in 2006. At that time, PTCA and stent implantation, right coronary artery, 3.5 x 16 Liberte stent. In 2012, she was found to have recurrent chest pain, had no obstructive stenosis in the right coronary artery, heavy calcium, borderline circumflex disease with negative FFR and a 70% lesion in the LAD. In 2016, there was worsening of the LAD lesion, she had a 2.5 x 12 mm drug coated stent Synergy post dilated to 3 mm with good result. In September 2019, she had chest pain, but underwent stress testing did not show ischemia. The patient has done relatively well since then. SOCIAL HISTORY: Continues to smoke half pack cigarettes per day. MEDICATIONS: She was taking, 1. Pravastatin. 2. Clopidogrel. 3. Aspirin. 4. Carvedilol. 5. Amlodipine. REVIEW OF SYSTEMS: CONSTITUTIONAL: No significant weight gain or loss. VISION: No changes. HEARING: No changes. PULMONARY: No cough or wheezing. GASTROINTESTINAL: No nausea, vomiting, or diarrhea. SKIN: No rashes. NEUROLOGIC: No unilateral weakness or numbness. PSYCHIATRIC: No unusual depression or anxiety. HEMATOLOGIC: No unusual bruising. GENITOURINARY: No burning with urination. PHYSICAL EXAMINATION: GENERAL: This is a pleasant elderly woman. VITAL SIGNS: Blood pressure 180/80, pulse 90, heart rate during the chest pain was actually 124. NECK: Neck veins are normal. Carotid normal upstrokes. No bruits. LUNGS: Clear. CARDIAC: Normal S1, normal S2. ABDOMEN: Soft and nontender. EXTREMITIES: Warm and dry. No clubbing or cyanosis. No edema. PERTINENT LABORATORY DATA: Troponin level of 0.020. LDL cholesterol is 83. ASSESSMENT: 1. Coronary artery disease as outlined above with stents in the right coronary artery and LAD. 2. Calcium noted in the coronary arteries. 3. Continued smoking half pack cigarettes per day. 4. Hypercholesterolemia. 5. Hypertension. 6. Unstable angina. PLAN: 1. Stress test was initially ordered that will be canceled in view of the unstable symptoms. Also had ST depression this morning with chest pain requiring nitroglycerin. 2. Schedule cardiac catheterization for Wednesday. Discussed risk of stroke, heart attack, iodine allergy, loss of blood supply to the leg or kidney, stent thrombosis, stent restenosis. She understands and wishes to proceed. 3. Increase beta blockers in view of rapid heart rate, although the patient may have not received the evening dose of carvedilol yesterday. We will go ahead and increase carvedilol dose at the present time. Job ID: [id number] MTDD
[2020-11-23] MEDS: Clopidogrel Bisulfate 75 MG TAB PO SCH (11:14)
[2020-11-23] MEDS ORDERED: Labetalol HCl 100 MG/20 ML VIAL SLOW IVP PRN (13:17)
[2020-11-23] MEDS: hydrALAZINE 25 MG TAB PO SCH ×2 (13:47→20:59)
[2020-11-23] MEDS: Carvedilol 25 MG TAB PO SCH (16:07)
--- NOTE | 2020-11-23 20:12 | PDOC.BPN ---
- Brief Progress Note Encounter Date: 11/23/20 Encounter Time: 11:00 The patietn had chest pain this morning that wazs relieved with nitroglycerin. She has had history of CAD and takes aspirin at home. She states she smokes one pack a day and has used nicotine patches but has not tried to quit GeneraL: alert and oriented times three, on oxygen CV: RRR, no murmurs, rubs, gallops Lungs: CTAB Abdomen: +BS, soft, nontender, nondistended Extremities: no edema THis is a 70 year old female with history of CAD who presented with chest pain #Chest pain #History of CAD and [place] - EKG this am showed old septal infarct - continue aspirin and statin . Troponin negative times three - cardiology consulted, plan for cardiac cath on Wednesday #HTN urgency - added hydralazine 25 mg tid and prn labetalol - continue coreg, clonidine and amlodipine
[2020-11-23] MEDS: Enoxaparin Sodium 80 MG/0.8 ML SYRINGE SC SCH (20:58)
[2020-11-23] MEDS: cloNIDine 0.1 MG TAB PO SCH (20:59)
[2020-11-23] MEDS: Atorvastatin Calcium 10 MG TAB PO SCH (21:01)
[2020-11-24] MEDS: Nicotine 14 MG PATCH TD SCH (05:40)
[2020-11-24] MEDS: Carvedilol 25 MG TAB PO SCH ×2 (08:32→16:38)
[2020-11-24] MEDS: Amlodipine 5 MG TAB PO SCH (08:33)
[2020-11-24] MEDS: Enoxaparin Sodium 80 MG/0.8 ML SYRINGE SC SCH ×2 (08:33→21:47)
[2020-11-24] MEDS: hydrALAZINE 25 MG TAB PO SCH ×3 (08:33→21:46)
[2020-11-24] MEDS: Clopidogrel Bisulfate 75 MG TAB PO SCH (08:33)
[2020-11-24] MEDS: Hydrochlorothiazide 25 MG TAB PO SCH (08:34)
[2020-11-24] MEDS: Lisinopril 20 MG TAB PO SCH (08:34)
[2020-11-24] MEDS ORDERED: hydrALAZINE 25 MG TAB PO SCH (10:00)
[2020-11-24] MEDS: Nitroglycerin 2% Ointment 1 INCH/1 GM Packet TOP SCH (16:38)
--- NOTE | 2020-11-24 18:54 | PDOC.HOSPP ---
- Subjective Encounter Date: 11/24/20 Encounter Time: 10:30 Subjective: F/u: chest pain The patient states her chest pain has resolved. She is hoping to go home after her cath tomorrow. She denies shortness of breath Hypertension - patient's BP 160-180 yesterday. The patient states her primary care doctor discontinued all of her blood pressure meds as an outpatient because her BP was too low - Objective Vital Signs & Weight: Vital Signs (12 hours) Temp Pulse Resp BP Pulse Ox 11/24/20 14:42 54 L 11/24/20 14:40 98 F 54 L 16 157/72 H 96 11/24/20 11:21 52 L 16 129/63 11/24/20 10:21 63 11/24/20 08:33 63 11/24/20 07:45 97.9 F 63 16 181/80 H 96 Weight Weight 163 lb 4.8 oz I&O: 11/23/20 11/24/20 11/25/20 06:59 06:59 06:59 Intake Total 840 Output Total 1000 Balance 840 -1000 Result Diagrams: 11/23/20 04:11 11/23/20 04:11 Hospitalist ROS - Review of Systems Constitutional: denies: fever, chills - Medication Medications: Active Medications Generic Name Dose Route Start Last Admin Trade Name [place] PRN Reason Stop Dose Admin Amlodipine Besylate 10 mg 11/24/20 09:00 11/24/20 08:33 Amlodipine 5 Mg Tab PO 10 mg DAILY JO Administration Atorvastatin Calcium 10 mg 11/23/20 21:00 11/23/20 21:01 Atorvastatin Calcium 10 Mg Tab PO Not Given HS JO Carvedilol 12.5 mg 11/24/20 17:00 11/24/20 16:38 Carvedilol 25 Mg Tab PO 12.5 mg BID-WM JO Administration Clonidine 0.1 mg 11/23/20 21:00 11/23/20 20:59 Clonidine 0.1 Mg Tab PO 0.1 mg HS JO Administration Clopidogrel Bisulfate 75 mg 11/23/20 09:00 11/24/20 08:33 Clopidogrel Bisulfate 75 Mg Tab PO 75 mg DAILY JO Administration Enoxaparin Sodium 70 mg 11/23/20 21:00 11/24/20 08:33 Enoxaparin Sodium 80 Mg/0.8 Ml Syringe SC 11/24/20 21:01 70 mg 0900,2100 JO Administration Hydralazine HCl 50 mg 11/24/20 15:00 11/24/20 14:42 Hydralazine 25 Mg Tab PO 50 mg TID JO Administration Hydrochlorothiazide 25 mg 11/23/20 09:00 11/24/20 08:34 Hydrochlorothiazide 25 Mg Tab PO 25 mg DAILY JO Administration Labetalol HCl 10 mg 11/23/20 13:17 11/23/20 15:37 Labetalol Hcl 100 Mg/20 Ml Vial SLOW IVP 10 mg Q4H PRN Administration SBP Greater Than 180 Lisinopril 40 mg 11/23/20 09:00 11/24/20 08:34 Lisinopril 20 Mg Tab PO 40 mg DAILY JO Administration Nicotine 14 mg 11/23/20 06:00 11/24/20 05:40 Nicotine 14 Mg Patch TD 14 mg Q24HR JO Administration Nitroglycerin 0.4 mg 11/23/20 02:01 11/23/20 08:23 Nitroglycerin 0.4 Mg Tab (25 Tab Bottle) SL 0.4 mg Q5MIN PRN Administration Chest Pain Nitroglycerin 0.5 inch 11/24/20 16:00 11/24/20 16:38 Nitroglycerin 2% Ointment 1 Inch/1 Gm Packet TOP 0.5 inch Q8H JO Administration - Exam General Appearance: NAD, awake alert Eye: PERRL, anicteric sclera ENT: normocephalic atraumatic, no oropharyngeal lesions Neck: no JVD Heart: RRR, no murmur, no gallops, no rubs Respiratory: CTAB, no wheezes, no rales, no ronchi Gastrointestinal: soft, non-tender, non-distended, normal bowel sounds Extremities: no cyanosis, no clubbing, no edema Hosp A/P - Plan THis is a 70 year old female with history of CAD who presented with chest pain #Chest pain #History of CAD and [place] - EKG this am showed old septal infarct - continue aspirin and statin . Troponin negative times three. Plan for cardiac cath on Wednesday #HTN urgency -increase hydralazine to 50 mg tid - continue coreg, clonidine and amlodipine Tobacco abuse - advised on stopping smoking. She will use nicotine patches at home
[2020-11-24] MEDS: cloNIDine 0.1 MG TAB PO SCH (21:46)
[2020-11-24] MEDS: Atorvastatin Calcium 10 MG TAB PO SCH (21:47)
[2020-11-25] MEDS: Nitroglycerin 2% Ointment 1 INCH/1 GM Packet TOP SCH ×2 (00:39→06:00)
[2020-11-25] MEDS: hydrALAZINE 25 MG TAB PO SCH ×4 (05:47→23:07)
[2020-11-25] MEDS: Amlodipine 5 MG TAB PO SCH (05:48)
[2020-11-25] MEDS: Lisinopril 20 MG TAB PO SCH (05:48)
[2020-11-25] MEDS: Clopidogrel Bisulfate 75 MG TAB PO SCH ×2 (05:48→05:50)
[2020-11-25] MEDS: Hydrochlorothiazide 25 MG TAB PO SCH (05:48)
[2020-11-25] MEDS: Sodium Chloride 0.9% 1,000 ML IV SCH ×2 (05:49→19:14)
[2020-11-25] MEDS: Nicotine 14 MG PATCH TD SCH (06:00)
[2020-11-25] MEDS: Carvedilol 25 MG TAB PO SCH ×2 (06:19→19:13)
[2020-11-25] MEDS ORDERED: Iopamidol 370 76% 100 ML VIAL ONE (11:50)
[2020-11-25] MEDS ORDERED: Iopamidol 370 76% 50 ML VIAL FS ONE (11:50)
[2020-11-25] MEDS ORDERED: Fentanyl 100 MCG/2 ML VIAL ONE (12:35)
[2020-11-25] MEDS ORDERED: Midazolam HCl 2 mg/2 ml Vial ONE (12:35)
[2020-11-25] MEDS ORDERED: hydrALAZINE 20 MG/ML VIAL ONE (12:48)
[2020-11-25] MEDS ORDERED: Heparin 10,000 UNITS/ 10 ML VIAL ONE (13:05)
[2020-11-25] MEDS ORDERED: Adenosine 6 MG/2 ML VIAL ONE (13:06)
[2020-11-25] MEDS ORDERED: Nitroglycerin 100MG/250ML BOT 0 ML ONE (13:06)
[2020-11-25] MEDS ORDERED: Verapamil 5 MG/2 ML VIAL ONE (13:06)
[2020-11-25] MEDS ORDERED: Clopidogrel Bisulfate 300 MG TAB ONE (13:07)
[2020-11-25] MEDS ORDERED: Ondansetron PF 4 MG/2 ML Vial ONE (13:09)
[2020-11-25] MEDS ORDERED: Atropine Sulfate 1 mg/10 ml Syringe ONE (13:09)
[2020-11-25] MEDS ORDERED: Sodium Chloride 0.9% 1,000 ML IV SCH (13:45)
[2020-11-25] MEDS ORDERED: Acetaminophen 325 MG TAB ONE (14:54)
--- NOTE | 2020-11-25 18:37 | PDOC.DS.DS ---
Provider - Provider Date of Admission: 11/23/20 20:10 Date of Discharge: 11/25/20 Admitting Provider: Dariusz Nazario Consultations: Cardiology (Dr. Jc) Primary Care Physician: Valerie Gillette MD Course - Hospital Course Hospital Course: Discharge Diagnoses: 1.Chest pain : possibly secondary to angina from CAD 2. Pulmonary nodule 3. History of CAD 3. Hypertensive Urgency 4. Tobacco abuse Hospital Course: This 70-year-old female with a history of CAD who presented to the emergency room with chest pain for the past 1 week. EKG showed old septal infarct. CTA of her chest showed bronchiolitis and a 5 mm pulmonary nodule of the left lower lobe. There was no PE. Patient was admitted for ACS rule out Hospital Course: Chest pain likely secondary to angina: Patient had 3 sets of troponins which were negative. Her chest pain resolved after receiving nitroglycerin. Cardiology was consulted and the patient underwent a cardiac cath today which showed 70% heavily calcified mid RCA lesion. This was not amenable to stenting. Cardiology recommended medical management with aspirin, statin, Coreg. She should consider seeing a fighting vehicle systems maintainer in [place] if she wants this intervened on. She was advised to stop smoking. She should follow-up with her PCP in a week and her fighting vehicle systems maintainer in a month Hypertensive Urgency: Patient had blood pressures ranging from 1 20-1 80 while in the hospital. Her blood pressure was better controlled with adding hydralazine 50 mg 3 times daily. In addition her Imdur will be increased to 60 mg on discharge. She will continue her Coreg, clonidine and amlodipine. She should follow-up with her PCP in a week for additional blood pressure control. Tobacco abuse: Patient was prescribed nicotine patch on discharge and she is aware that she needs to start using the patches Pertinent Studies: Cardiac cath: unable to see physician report Resuscitation Status: 11/23/20 02:01 Resuscitation Status Routine Resuscitation Status: FULL: Full Resuscitation - Labs Lab Results: 11/23/20 04:11 11/23/20 04:11 - Physical Exam Vitals: Vital Signs (12 hours) Temp Pulse Resp BP Pulse Ox 11/25/20 11:10 98.5 F 54 L 16 162/74 H 96 11/25/20 07:20 98.6 F 58 L 16 155/70 H 96 Weight Weight 161 lb 3.2 oz Physical Exam: The patient was seen and examined on the day of discharge. General: Patient is alert regarding x3 CVS: RRR, no murmurs, rubs, gallops Lungs: CTAB Abdomen: +BS, soft, nontender, nondistended Extremities: no edema Problem - Discharge Plan Plan of Treatment: Get a repeat cT chest in 6 months for following pulmonary nodule. Consider seeing a fighting vehicle systems maintainer in [place] to see if they can fix the calcified lesion in your RCA. Follow up with your primary care doctor in a week and with Dr. Jc. - Time spent with Patient (mins): 30 Plan - Discharge Medications Prescriptions: Nicotine [Nicoderm CQ] 14 mg TD Q24HR #30 patch hydrALAZINE HCl [Hydralazine HCl] 50 mg PO TID #90 tablet Isosorbide Mononitrate [Imdur] 60 mg PO DAILY #30 tab Home Medications: Medication Instructions Recorded Confirmed Type Nitroglycerin [Nitrostat] 0.4 mg SL Q5MIN PRN 05/04/15 10/15/19 History Pravastatin Sodium [Pravachol] 40 mg PO HS 05/04/15 11/23/20 History Pregabalin [Lyrica] 75 mg PO DAILY 05/04/15 11/23/20 History Aspirin Chewable [Aspirin Chewable 81 mg PO DAILY #30 tab 03/05/17 10/15/19 Rx Tablet] Clopidogrel Bisulfate [Plavix] 75 mg PO DAILY #30 tab 03/05/17 11/23/20 Rx Hydrochlorothiazide 25 mg PO DAILY #30 tab 03/05/17 10/15/19 Rx Lisinopril 40 mg PO DAILY #30 tablet 03/05/17 10/15/19 Rx Carvedilol [Coreg] 12.5 mg PO BID #60 tab 03/19/17 11/23/20 Rx Amlodipine [Norvasc] 10 mg PO DAILY 11/22/18 10/15/19 History cloNIDine [Catapres] 0.1 mg PO HS 11/22/18 10/15/19 History Cholecalciferol [Vitamin D3] 2,000 units PO BID 10/15/19 10/15/19 History Albuterol Sulfate [Proair 90 mcg IH 11/23/20 History Digihaler] Dihydroergotamine Mesylate 1 spray EA NARE ONE PRN 11/23/20 History [Migranal] Nitroglycerin 0.4 mg SL PRN PRN 11/23/20 11/23/20 History Isosorbide Mononitrate [Imdur] 60 mg PO DAILY #30 tab 11/25/20 Rx Nicotine [Nicoderm CQ] 14 mg TD Q24HR #30 patch 11/25/20 Rx hydrALAZINE HCl [Hydralazine HCl] 50 mg PO TID #90 tablet 11/25/20 Rx Allergies: No Known Allergies Allergy (Verified 11/23/20 01:42) - Discharge Instructions Activity:: Activity as Tolerated - Follow up Plan Referrals: Nash Jc MD [Active] - 2-3 Weeks (Please call office to schedule a follow up appointement.) Valerie Gillette MD [Primary Care Provider] - Disposition: HOME Quality - Care Measures CORE MEASURES:: N/A
[2020-11-25] MEDS: cloNIDine 0.1 MG TAB PO SCH (20:24)
[2020-11-25] MEDS: Atorvastatin Calcium 10 MG TAB PO SCH (20:25)
[2020-11-26] MEDS: Sodium Chloride 0.9% 1,000 ML IV SCH (03:20)
[2020-11-26 04:39] LABS: #Eosinphils 0.1 thou/uL (0.0-0.7); #Lymphocytes 1.6 thou/uL (1.20-3.40); #Monocytes 0.8 thou/uL (0.11-0.59); #Neutrophils 3.4 thou/uL (1.40-6.50); %Basophils 0.4 % (0.0-1.0); %Eosinophils 1.3 % (0.0-10.0); %Lymphocytes 27.5 % (21.0-51.0); %Monocytes 13.4 % (0.0-10.0); %Neutrophils 57.5 % (42.0-75.0); Hemoglobin 12.8 g/dL (12.0-16.0); Mean Corpuscular HGB CONC 31.7 g/dL (32.0-36.0); Mean Corpuscular Hemoglobin 28.7 pg (27.0-31.0); Mean Corpuscular Volume 90.4 fL (78.0-98.0); Mean Platelet Volume 8.1 fL (7.4-10.4); Platelet Count 214 thou/uL (130-400); RBC Distribution Width 15.4 % (11.5-14.5); Red Blood Cell (RBC) Count 4.47 mill/uL (4.20-5.40)
[2020-11-26 05:01] LABS: ALT (SGPT) 12 U/L (8-55); AST (SGOT) 15 U/L (5-34); Albumin 3.1 g/dL (3.4-4.8); Alkaline Phosphatase 63 U/L (40-110); Anion Gap 13 mmol/L (10-20); BUN (Urea Nitrogen) 13 mg/dL (9.8-20.1); Bilirubin, Total 0.5 mg/dL (0.2-1.2); Calc. Creatinine Clearance 75 mL/min (70-130); Calcium 8.7 mg/dL (7.8-10.44); Carbon Dioxide 26 mmol/L (23-31); Chloride 102 mmol/L (98-107); Glucose 83 mg/dL (83-110); Potassium 3.3 mmol/L (3.5-5.1); Protein, Total 6.1 g/dL (6.0-8.3); Sodium 138 mmol/L (136-145)
[2020-11-26] MEDS: Nicotine 14 MG PATCH TD SCH (05:21)
[2020-11-26 07:30] VITALS: BP 149/76; TEMP 98.1
[2020-11-26] MEDS: Hydrochlorothiazide 25 MG TAB PO SCH (07:31)
[2020-11-26] MEDS: Lisinopril 20 MG TAB PO SCH (07:31)
[2020-11-26] MEDS: hydrALAZINE 25 MG TAB PO SCH (07:31)
[2020-11-26] MEDS: Carvedilol 25 MG TAB PO SCH (07:32)
[2020-11-26] MEDS: Amlodipine 5 MG TAB PO SCH (07:32)
[2020-11-26] MEDS ORDERED: Aspirin Chewable 81 MG TAB PO SCH (09:00)
[2020-11-26] MEDS ORDERED: Clopidogrel Bisulfate 75 MG TAB PO SCH (09:00)
--- NOTE | 2020-11-26 10:27 | EKG ---
Test Reason : Blood Pressure : / mmHG Vent. Rate : 101 BPM Atrial Rate : 101 BPM P-R Int : 190 ms QRS Dur : 074 ms QT Int : 368 ms P-R-T Axes : 055 003 070 degrees QTc Int : 477 ms Sinus tachycardia Septal infarct (cited on or before 22-NOV-2020) Abnormal ECG When compared with ECG of 22-NOV-2020 22:12, (Unconfirmed) No significant change was found Confirmed by Dionicio ROLDAN ([id number]) on 11/26/2020 10:26:46 AM Referred By: MORRIS Confirmed By:Dionicio ROLDAN
--- NOTE | 2020-11-26 10:34 | EKG ---
Test Reason : Blood Pressure : / mmHG Vent. Rate : 054 BPM Atrial Rate : 054 BPM P-R Int : 198 ms QRS Dur : 076 ms QT Int : 448 ms P-R-T Axes : 061 016 047 degrees QTc Int : 424 ms Sinus bradycardia Otherwise normal ECG When compared with ECG of 23-NOV-2020 08:21, (Unconfirmed) Vent. rate has decreased BY 47 BPM Criteria for Septal infarct are no longer Present QT has shortened Confirmed by Dionicio ROLDAN ([id number]) on 11/26/2020 10:34:21 AM Referred By: JOSE Confirmed By:Dionicio ROLDAN
--- NOTE | 2020-11-26 19:04 | PDOC.HOSPP ---
- Subjective Encounter Date: 11/25/20 Encounter Time: 04:00 Subjective: Follow-up: Chest pain Patient is status post cardiac cath. She denies chest pain or shortness of breath. She is awaiting to see if she can get a ride home today. She does not come off bedrest until 1 AM. - Objective Vital Signs & Weight: Vital Signs (12 hours) Temp Pulse Resp BP Pulse Ox 11/26/20 08:00 95 11/26/20 07:32 66 11/26/20 07:31 66 11/26/20 07:22 98.1 F 66 16 149/76 H 94 L Weight Weight 161 lb 3.2 oz I&O: 11/25/20 11/26/20 11/27/20 06:59 06:59 06:59 Intake Total 360 1450 Output Total 2100 700 Balance -1740 750 Result Diagrams: 11/26/20 03:58 11/26/20 03:58 Hospitalist ROS - Review of Systems Constitutional: denies: fever, chills - Exam General Appearance: NAD, awake alert Eye: PERRL, anicteric sclera ENT: normocephalic atraumatic, no oropharyngeal lesions Neck: no JVD Heart: RRR, no murmur, no gallops, no rubs Respiratory: CTAB, no wheezes, no rales, no ronchi Gastrointestinal: soft, non-tender, non-distended, normal bowel sounds Extremities: no cyanosis, no clubbing, no edema Skin: normal turgor, no lesions, no rashes Hosp A/P - Plan THis is a 70 year old female with history of CAD who presented with chest pain #Chest pain #History of CAD and [place] - EKG this am showed old septal infarct - continue aspirin and statin . Troponin negative times three. Cardiac cath showed mid RCA 70% calcified valve. Continue medical management per cardiology since this was not amenable to stenting #HTN urgency -Continue hydralazine to 50 mg tid - continue coreg, clonidine and amlodipine Tobacco abuse - advised on stopping smoking. She will use nicotine patches at home
== END 2020-11-26 09:40 | disposition home or self-care (01) | DRG 287 ==
LOC: ERS 21:43 → 2NO 23:41 → OBSVTOIN 11-23 20:10
PROVIDERS: ADMIT Internal Medicine; ATTEND Internal Medicine
PROC: B2111ZZ Fluoroscopy of Multiple Coronary Arteries using Low Osmolar Contrast (ICD-10-PCS; principal; 2020-11-25)
DX: I25.110 Atherosclerotic heart disease of native coronary artery with unstable angina pectoris (principal); I16.0 Hypertensive urgency; R91.8 Other nonspecific abnormal finding of lung field; F17.210 Nicotine dependence, cigarettes, uncomplicated; Z20.822 Contact with and (suspected) exposure to COVID-19; I10 Essential (primary) hypertension; J44.9 Chronic obstructive pulmonary disease, unspecified; Z96.649 Presence of unspecified artificial hip joint; I73.9 Peripheral vascular disease, unspecified; E78.00 Pure hypercholesterolemia, unspecified; G62.9 Polyneuropathy, unspecified; Z95.5 Presence of coronary angioplasty implant and graft; I25.2 Old myocardial infarction; Z79.899 Other long term (current) drug therapy; Z79.82 Long term (current) use of aspirin; Z79.02 Long term (current) use of antithrombotics/antiplatelets
CPT/HCPCS: 36415; 71045; 71275; 76942; 80053; 80061; 81003; 81015; 83036; 83690; 83735; 83880; 84484; 85007; 85025; 85027; 85347; 85379; 87635; 93005; 93010; 93454; 94760; 96372; 96374; 96375; 99152; 99153; G0378; J0153; J0360; J0461; J1644; J1650; J2250; J2270; J2405; J2930; J3010; Q9967; U0003

== ENCOUNTER 2021-04-03 08:55 | Outpatient (CLI) | payer MEDICARE | END 2021-04-03 08:56 | disposition home or self-care (01) | LOC: BICRAD 08:55 | PROVIDERS: ATTEND Internal Medicine Critical Care Medicine | DX: R06.00 Dyspnea, unspecified (principal) | CPT/HCPCS: 71046 ==

== ENCOUNTER 2021-08-14 17:13 | Observation (INO) | payer MEDICARE ==
[2021-08-14] MEDS ORDERED: HYDROcodone/Acetaminophen 5/325 mg Tablet PO PRN ×2 (19:56→19:57)
[2021-08-14] MEDS ORDERED: Clopidogrel Bisulfate 75 MG TAB PO SCH (20:00)
[2021-08-14] MEDS ORDERED: Ondansetron PF 4 MG/2 ML Vial IVP PRN (20:00)
[2021-08-14] MEDS ORDERED: Acetaminophen 325 MG TAB PO PRN (20:00)
[2021-08-14] MEDS ORDERED: Ondansetron ODT 4 MG TAB SL PRN (20:00)
[2021-08-14] MEDS ORDERED: Senokot S 8.6-50 MG TAB PO PRN (21:35)
[2021-08-14] MEDS ORDERED: Guaifenesin DM 100-10/5 ML UDCUP PO PRN (21:35)
[2021-08-14] MEDS ORDERED: Nitroglycerin 0.4 MG TAB (25 Tab Bottle) SL PRN (21:41)
[2021-08-14] MEDS ORDERED: Melatonin 3 MG TAB PO PRN (21:42)
[2021-08-14] MEDS ORDERED: Nicotine 21 MG PATCH TD SCH (21:45)
[2021-08-14] MEDS ORDERED: cloNIDine 0.1 MG TAB PO SCH ×2 (21:48→23:59)
[2021-08-14] MEDS ORDERED: hydrALAZINE 20 MG/ML VIAL SLOW IVP PRN (21:50)
[2021-08-14 22:21] VITALS: BMI 26.7
[2021-08-14] MEDS ORDERED: Communication Order-Pharmacy FS ONE (22:23)
[2021-08-14] MEDS ORDERED: Benzonatate 100 MG CAP PO PRN (22:28)
[2021-08-14] MEDS ORDERED: methylPREDNISolone Sod Succ 40 MG VIAL IVP SCH (23:00)
[2021-08-14 23:19] LABS: Calcium 9.5 mg/dL (7.8-10.44); Magnesium 1.6 mg/dL (1.6-2.6); Phosphorus 2.5 mg/dL (2.3-4.7); Potassium 3.4 mmol/L (3.5-5.1)
[2021-08-15 05:00] LABS: #Lymphocytes 0.7 thou/uL (1.20-3.40); #Monocytes 0.1 thou/uL (0.11-0.59); #Neutrophils 4.1 thou/uL (1.40-6.50); %Basophils 0.6 % (0.0-1.0); %Eosinophils 0.1 % (0.0-10.0); %Lymphocytes 14.8 % (21.0-51.0); %Monocytes 2.2 % (0.0-10.0); %Neutrophils 82.3 % (42.0-75.0); Hemoglobin 14.3 g/dL (12.0-16.0); Mean Corpuscular HGB CONC 31.8 g/dL (32.0-36.0); Mean Corpuscular Hemoglobin 26.1 pg (27.0-31.0); Mean Corpuscular Volume 81.9 fL (78.0-98.0); Mean Platelet Volume 7.6 fL (7.4-10.4); Platelet Count 271 thou/uL (130-400); Red Blood Cell (RBC) Count 5.46 mill/uL (4.20-5.40)
[2021-08-15 06:08] LABS: ALT (SGPT) 12 U/L (8-55); AST (SGOT) 13 U/L (5-34); Albumin 3.8 g/dL (3.4-4.8); Alkaline Phosphatase 89 U/L (40-110); Anion Gap 15 mmol/L (10-20); BUN (Urea Nitrogen) 7 mg/dL (9.8-20.1); Bilirubin, Total 0.5 mg/dL (0.2-1.2); Calc. Creatinine Clearance 74 mL/min (70-130); Calcium 10.2 mg/dL (7.8-10.44); Carbon Dioxide 22 mmol/L (23-31); Cardiac Risk 2.6 (Less than 4.5); Chloride 103 mmol/L (98-107); Cholesterol 149 mg/dl (< 200 Desired); Globulin 3.4 g/dL (2.4-3.5); Glucose 118 mg/dL (83-110); HDL Cholesterol 58 mg/dL (>60 Neg Risk); LDL Cholesterol, Calculated 79 mg/dL; Potassium 4.1 mmol/L (3.5-5.1); Protein, Total 7.2 g/dL (5.8-8.1); Sodium 136 mmol/L (136-145); Triglycerides 62 mg/dL (Less than 150)
[2021-08-15 06:10] LABS: Troponin I Less than 0.010 ng/mL (< 0.028)
[2021-08-15] MEDS: hydrALAZINE 25 MG TAB PO SCH ×2 (07:32→15:17)
[2021-08-15] MEDS ORDERED: Famotidine 20 MG TAB PO SCH (09:00)
[2021-08-15] MEDS ORDERED: Hydrochlorothiazide 25 MG TAB PO SCH (09:00)
[2021-08-15] MEDS ORDERED: methylPREDNISolone Sod Succ 40 MG VIAL IVP SCH (09:00)
[2021-08-15] MEDS ORDERED: Aspirin 325 mg Enteric Coated Tablet PO SCH (09:00)
[2021-08-15] MEDS ORDERED: Lisinopril 20 MG TAB PO SCH (09:00)
[2021-08-15] MEDS ORDERED: Enoxaparin Sodium 80 MG/0.8 ML SYRINGE SC SCH (09:00)
[2021-08-15] MEDS ORDERED: Pregabalin 75 MG CAP PO SCH (09:00)
[2021-08-15 15:16] VITALS: BP 128/60; TEMP 98.1
[2021-08-15] MEDS ORDERED: Atorvastatin Calcium 20 MG TAB PO SCH (21:00)
[2021-08-15] MEDS ORDERED: Atorvastatin Calcium 10 MG TAB PO SCH (21:00)
[2021-08-15] MEDS ORDERED: Atorvastatin Calcium 40 MG TAB PO SCH (21:00)
[2021-08-15 23:55] LABS: SARS-CoV-2 PCR by NAA Not Detected (NotDetected)
== END 2021-08-15 17:11 | disposition home or self-care (01) ==
LOC: 2NO 17:13
PROVIDERS: ADMIT Internal Medicine; ATTEND Family Medicine
DX: I25.110 Atherosclerotic heart disease of native coronary artery with unstable angina pectoris (principal); E87.6 Hypokalemia; I10 Essential (primary) hypertension; I25.2 Old myocardial infarction; I49.3 Ventricular premature depolarization; I08.3 Combined rheumatic disorders of mitral, aortic and tricuspid valves; R91.1 Solitary pulmonary nodule; F10.20 Alcohol dependence, uncomplicated; F17.210 Nicotine dependence, cigarettes, uncomplicated; G62.9 Polyneuropathy, unspecified; E78.5 Hyperlipidemia, unspecified; J44.1 Chronic obstructive pulmonary disease with (acute) exacerbation; Z20.822 Contact with and (suspected) exposure to COVID-19; Z79.899 Other long term (current) drug therapy
CPT/HCPCS: 80061; 82310; 83735; 84100; 84132; 84484; 93005; 93306; 94640 ×2; U0003; U0005; 36415; 80053; 84443; 85025; 93010; 96372; 96374; 96376; G0378; J1650; J2920; J7620

== ENCOUNTER 2021-10-24 20:08 | Emergency (ER) | payer MEDICARE ==
[2021-10-24 20:56] LABS: #Eosinphils 0.1 thou/uL (0.0-0.7); #Lymphocytes 1.9 thou/uL (1.20-3.40); #Monocytes 0.9 thou/uL (0.11-0.59); #Neutrophils 4.5 thou/uL (1.40-6.50); %Basophils 0.3 % (0.0-1.0); %Eosinophils 1.3 % (0.0-10.0); %Lymphocytes 26.1 % (21.0-51.0); %Monocytes 11.5 % (0.0-10.0); %Neutrophils 60.7 % (42.0-75.0); Hemoglobin 11.3 g/dL (12.0-16.0); Mean Corpuscular HGB CONC 32.8 g/dL (32.0-36.0); Mean Corpuscular Hemoglobin 26.7 pg (27.0-31.0); Mean Corpuscular Volume 81.4 fL (78.0-98.0); Mean Platelet Volume 7.5 fL (7.4-10.4); Platelet Count 318 thou/uL (130-400); RBC Distribution Width 19.4 % (11.5-14.5); Red Blood Cell (RBC) Count 4.24 mill/uL (4.20-5.40); White Blood Cell (WBC) Count 7.4 thou/uL (4.8-10.8)
[2021-10-24 21:16] LABS: ALT (SGPT) 8 U/L (8-55); AST (SGOT) 14 U/L (5-34); Albumin 3.2 g/dL (3.4-4.8); Alkaline Phosphatase 67 U/L (40-110); Anion Gap 13 mmol/L (10-20); BUN (Urea Nitrogen) 6 mg/dL (9.8-20.1); Bilirubin, Total 0.3 mg/dL (0.2-1.2); Calc. Creatinine Clearance 0 mL/min (70-130); Calcium 9.2 mg/dL (7.8-10.44); Carbon Dioxide 26 mmol/L (23-31); Chloride 98 mmol/L (98-107); Globulin 3.3 g/dL (2.4-3.5); Glucose 88 mg/dL (83-110); Potassium 3.1 mmol/L (3.5-5.1); Protein, Total 6.5 g/dL (5.8-8.1); Sodium 134 mmol/L (136-145)
[2021-10-24 21:50] LABS: Bilirubin Negative (Negative); Blood, Urine Negative (Negative); Clarity Clear (Clear); Glucose, Urine (Dipstick) Normal (Negative); Ketone, Urine Negative (Negative); Leukocyte Negative Leu/uL (Negative); Nitrite Negative (Negative); Protein, Urine (Dipstick) Negative (Neg-Trace); Specific Gravity, Urine 1.003 (1.002-1.036); Urobilinogen Normal mg/dL (Less than 2)
== END 2021-10-24 22:12 | disposition home or self-care (01) ==
LOC: ERS 20:08
DX: J44.9 Chronic obstructive pulmonary disease, unspecified (principal); R11.2 Nausea with vomiting, unspecified; I10 Essential (primary) hypertension; I25.10 Atherosclerotic heart disease of native coronary artery without angina pectoris; I25.2 Old myocardial infarction; F17.210 Nicotine dependence, cigarettes, uncomplicated
CPT/HCPCS: 36415; 71045; 80053; 81003; 83605; 83880; 84484; 85025; 87040; 94640; 94760; J7620

== ENCOUNTER 2022-09-17 12:02 | Inpatient (IN) | payer OTHER ==
[2022-09-17] MEDS ORDERED: Magnevist 469MG/ML 20 ML VIAL ONE (14:13)
[2022-09-17 15:51] VITALS: BMI 20.1
[2022-09-17] MEDS ORDERED: Acetaminophen 325 MG TAB PO PRN (16:13)
[2022-09-17] MEDS ORDERED: Senokot S 8.6-50 MG TAB PO PRN (16:13)
[2022-09-17] MEDS ORDERED: Ondansetron PF 4 MG/2 ML Vial IVP PRN (16:13)
[2022-09-17] MEDS ORDERED: Albuterol Sulfate 2.5 mg/3 ml Neb NEB PRN (16:30)
[2022-09-17 16:53] LABS: #Eosinphils 0.1 thou/uL (0.0-0.7); #Lymphocytes 1.5 thou/uL (1.20-3.40); #Monocytes 0.8 thou/uL (0.11-0.59); #Neutrophils 3.6 thou/uL (1.40-6.50); %Basophils 0.7 % (0.0-1.0); %Lymphocytes 24.6 % (21.0-51.0); %Monocytes 13.2 % (0.0-10.0); %Neutrophils 59.6 % (42.0-75.0); Hemoglobin 11.9 g/dL (12.0-16.0); Mean Corpuscular HGB CONC 30.8 g/dL (32.0-36.0); Mean Corpuscular Hemoglobin 23.7 pg (27.0-31.0); Mean Corpuscular Volume 77.1 fl (78.0-98.0); Mean Platelet Volume 9.1 fL (7.4-10.4); Platelet Count 335 thou/uL (130-400); RBC Distribution Width 21.1 % (11.5-14.5); Red Blood Cell (RBC) Count 5.04 mill/uL (4.20-5.40); White Blood Cell (WBC) Count 6.1 thou/uL (4.8-10.8)
[2022-09-17 17:15] LABS: ALT (SGPT) 7 U/L (8-55); AST (SGOT) 12 U/L (5-34); Albumin 3.5 g/dL (3.4-4.8); Alkaline Phosphatase 73 U/L (40-110); Anion Gap 12 mmol/L (10-20); BUN (Urea Nitrogen) 4 mg/dL (9.8-20.1); Bilirubin, Total 0.5 mg/dL (0.2-1.2); Calc. Creatinine Clearance 68 mL/min (70-130); Calcium 9.9 mg/dL (7.8-10.44); Carbon Dioxide 25 mmol/L (23-31); Chloride 100 mmol/L (98-107); Estimated GFR 92; Globulin 3.9 g/dL (2.4-3.5); Glucose 76 mg/dL (83-110); Magnesium 1.5 mg/dL (1.6-2.6); Potassium 3.7 mmol/L (3.5-5.1); Protein, Total 7.4 g/dL (5.8-8.1); Sodium 133 mmol/L (136-145)
[2022-09-17] MEDS ORDERED: Electrolyte Replacement Protocol FS SCH (17:30)
[2022-09-17] MEDS ORDERED: Magnesium 2 GM/50 ML(in water) 2 GM in Premix Bag 1 BAG IVPB SCH (17:30)
[2022-09-17] MEDS: Nicotine 14 MG PATCH TD SCH (17:54)
[2022-09-17] MEDS: Atorvastatin Calcium 40 MG TAB PO SCH (21:51)
[2022-09-17] MEDS: Carvedilol 6.25 MG TAB PO SCH (21:51)
[2022-09-17] MEDS: Midodrine HCl 5 MG TAB PO SCH (21:52)
[2022-09-17] MEDS: Cholecalciferol 1,000 UNITS (25 MCG) TAB PO SCH (21:52)
[2022-09-18 04:27] LABS: ALT (SGPT) Less than 7 U/L (8-55); AST (SGOT) 12 U/L (5-34); Albumin 3.1 g/dL (3.4-4.8); Alkaline Phosphatase 64 U/L (40-110); Anion Gap 11 mmol/L (10-20); BUN (Urea Nitrogen) 7 mg/dL (9.8-20.1); Bilirubin, Total 0.4 mg/dL (0.2-1.2); Calc. Creatinine Clearance 72 mL/min (70-130); Calcium 9.4 mg/dL (7.8-10.44); Carbon Dioxide 24 mmol/L (23-31); Chloride 101 mmol/L (98-107); Estimated GFR 93; Globulin 3.3 g/dL (2.4-3.5); Glucose 87 mg/dL (83-110); Potassium 3.4 mmol/L (3.5-5.1); Protein, Total 6.4 g/dL (5.8-8.1); Sodium 133 mmol/L (136-145)
[2022-09-18 05:20] LABS: Anisocytosis MODERATE=16-30 cells (100X) (0-5/hpf); Band 1 % (5-11); Hemoglobin 10.7 g/dL (12.0-16.0); Lymphocytes 28 % (21-51); MDiff Complete? YES; Mean Corpuscular Hemoglobin 24.7 pg (27.0-31.0); Mean Corpuscular Volume 77.4 fl (78.0-98.0); Mean Platelet Volume 8.9 fL (7.4-10.4); Microcytosis SLIGHT = 6-15 cells (100X) (0-5/hpf); Monocytes 9 % (0-10); Neutrophil 61 % (42-75); Platelet Count 321 thou/uL (130-400); Platelet Morphology Comment Appears Adequate; RBC Distribution Width 20.6 % (11.5-14.5); Red Blood Cell (RBC) Count 4.32 mill/uL (4.20-5.40); Reflex for Review?? YES; Target Cells MARKED = >16 cells (100X) (0-1/hpf); White Blood Cell (WBC) Count 5.5 thou/uL (4.8-10.8)
[2022-09-18] MEDS ORDERED: Potassium Chloride 20 MEQ TAB PO SCH (08:00)
[2022-09-18] MEDS: Cholecalciferol 1,000 UNITS (25 MCG) TAB PO SCH ×2 (08:27→20:18)
[2022-09-18] MEDS: Carvedilol 6.25 MG TAB PO SCH ×2 (08:28→20:18)
[2022-09-18] MEDS: Amlodipine 5 MG TAB PO SCH (08:28)
[2022-09-18] MEDS: DULoxetine 30 MG CAP PO SCH (08:28)
[2022-09-18] MEDS: Clopidogrel Bisulfate 75 MG TAB PO SCH (08:29)
[2022-09-18] MEDS: Midodrine HCl 5 MG TAB PO SCH ×4 (08:29→20:18)
[2022-09-18] MEDS: Aspirin Chewable 81 MG TAB PO SCH (08:29)
[2022-09-18] MEDS ORDERED: Enoxaparin Sodium 30 MG/0.3 ML SYRINGE SC SCH (09:00)
[2022-09-18] MEDS ORDERED: Iopamidol-370 76% 500 ML 1 ML ONE (10:02)
[2022-09-18] MEDS: Nicotine 14 MG PATCH TD SCH (16:54)
[2022-09-18] MEDS: Atorvastatin Calcium 40 MG TAB PO SCH (20:18)
[2022-09-19] MEDS: Aspirin Chewable 81 MG TAB PO SCH (09:11)
[2022-09-19] MEDS: Clopidogrel Bisulfate 75 MG TAB PO SCH (09:11)
[2022-09-19] MEDS: Amlodipine 5 MG TAB PO SCH (09:11)
[2022-09-19] MEDS: Enoxaparin Sodium 40 MG/0.4 ML SYRINGE SC SCH (09:11)
[2022-09-19] MEDS: Carvedilol 6.25 MG TAB PO SCH ×2 (09:11→20:28)
[2022-09-19] MEDS: DULoxetine 30 MG CAP PO SCH (09:11)
[2022-09-19] MEDS: Midodrine HCl 5 MG TAB PO SCH ×3 (09:11→20:28)
[2022-09-19] MEDS: Cholecalciferol 1,000 UNITS (25 MCG) TAB PO SCH ×2 (09:11→20:28)
[2022-09-19 11:16] LABS: #Basophils 0.1 thou/uL (0.0-0.2); #Eosinphils 0.1 thou/uL (0.0-0.7); #Lymphocytes 1.1 thou/uL (1.20-3.40); #Monocytes 0.6 thou/uL (0.11-0.59); #Neutrophils 2.6 thou/uL (1.40-6.50); %Basophils 1.3 % (0.0-1.0); %Eosinophils 1.7 % (0.0-10.0); %Lymphocytes 24.8 % (21.0-51.0); %Monocytes 13.6 % (0.0-10.0); %Neutrophils 58.7 % (42.0-75.0); Mean Corpuscular HGB CONC 29.5 g/dL (32.0-36.0); Mean Corpuscular Hemoglobin 23.1 pg (27.0-31.0); Mean Corpuscular Volume 78.3 fl (78.0-98.0); Mean Platelet Volume 8.6 fL (7.4-10.4); Platelet Count 327 thou/uL (130-400); RBC Distribution Width 20.9 % (11.5-14.5); Red Blood Cell (RBC) Count 4.34 mill/uL (4.20-5.40); White Blood Cell (WBC) Count 4.5 thou/uL (4.8-10.8)
[2022-09-19 11:21] LABS: Anion Gap 11 mmol/L (10-20); BUN (Urea Nitrogen) 7 mg/dL (9.8-20.1); Calc. Creatinine Clearance 68 mL/min (70-130); Calcium 9.5 mg/dL (7.8-10.44); Carbon Dioxide 26 mmol/L (23-31); Chloride 100 mmol/L (98-107); Estimated GFR 93; Glucose 103 mg/dL (83-110); Potassium 3.8 mmol/L (3.5-5.1); Sodium 133 mmol/L (136-145)
[2022-09-19 11:58] LABS: Platelet Morphology Comment Appears Adequate; RBC Morphology 1+ Hypochromia
[2022-09-19] MEDS: Nicotine 14 MG PATCH TD SCH (16:13)
[2022-09-19] MEDS: Atorvastatin Calcium 40 MG TAB PO SCH (20:27)
[2022-09-20 05:01] LABS: Anion Gap 11 mmol/L (10-20); BUN (Urea Nitrogen) 10 mg/dL (9.8-20.1); Calc. Creatinine Clearance 69 mL/min (70-130); Calcium 9.1 mg/dL (7.8-10.44); Carbon Dioxide 27 mmol/L (23-31); Chloride 101 mmol/L (98-107); Estimated GFR 93; Glucose 85 mg/dL (83-110); Potassium 3.5 mmol/L (3.5-5.1); Sodium 135 mmol/L (136-145)
[2022-09-20 06:15] LABS: Anisocytosis MODERATE=16-30 cells (100X) (0-5/hpf); Eosinophils 2 % (0-10); Hemoglobin 9.6 g/dL (12.0-16.0); Hypochromia SLIGHT = 6-15 cells (100X) (0-5/hpf); Lymphocytes 26 % (21-51); MDiff Complete? YES; Mean Corpuscular HGB CONC 29.4 g/dL (32.0-36.0); Mean Corpuscular Hemoglobin 23.1 pg (27.0-31.0); Mean Corpuscular Volume 78.4 fl (78.0-98.0); Mean Platelet Volume 8.5 fL (7.4-10.4); Monocytes 17 % (0-10); Neutrophil 53 % (42-75); Platelet Count 326 thou/uL (130-400); Platelet Morphology Comment Appears Adequate; Polychromasia SLIGHT = 2-3 cells (100X) (0-2/hpf); RBC Distribution Width 20.7 % (11.5-14.5); Red Blood Cell (RBC) Count 4.17 mill/uL (4.20-5.40); White Blood Cell (WBC) Count 5.3 thou/uL (4.8-10.8)
[2022-09-20] MEDS: Enoxaparin Sodium 40 MG/0.4 ML SYRINGE SC SCH (09:12)
[2022-09-20] MEDS: DULoxetine 30 MG CAP PO SCH (09:12)
[2022-09-20] MEDS: Clopidogrel Bisulfate 75 MG TAB PO SCH (09:12)
[2022-09-20] MEDS: Midodrine HCl 5 MG TAB PO SCH ×2 (09:12→14:05)
[2022-09-20] MEDS: Aspirin Chewable 81 MG TAB PO SCH (09:12)
[2022-09-20] MEDS: Amlodipine 5 MG TAB PO SCH (09:12)
[2022-09-20] MEDS: Cholecalciferol 1,000 UNITS (25 MCG) TAB PO SCH (09:12)
[2022-09-20] MEDS: Carvedilol 6.25 MG TAB PO SCH (09:13)
[2022-09-20 16:34] VITALS: BP 146/65; TEMP 97.9
[2022-09-20] MEDS: Nicotine 14 MG PATCH TD SCH (16:34)
== END 2022-09-20 17:35 | disposition home or self-care (01) | DRG 312 ==
LOC: INTOOBSV 15:26 → 2NO 15:26 → OBSVTOIN 09-19 09:40
PROVIDERS: ADMIT Internal Medicine; ATTEND Internal Medicine
DX: I95.1 Orthostatic hypotension (principal); E87.1 Hypo-osmolality and hyponatremia; D32.0 Benign neoplasm of cerebral meninges; F32.A Depression, unspecified; Z66 Do not resuscitate; E78.5 Hyperlipidemia, unspecified; E55.9 Vitamin D deficiency, unspecified; I73.9 Peripheral vascular disease, unspecified; F17.210 Nicotine dependence, cigarettes, uncomplicated; I25.10 Atherosclerotic heart disease of native coronary artery without angina pectoris; Z20.822 Contact with and (suspected) exposure to COVID-19; J44.9 Chronic obstructive pulmonary disease, unspecified; I49.3 Ventricular premature depolarization; M19.90 Unspecified osteoarthritis, unspecified site; E87.6 Hypokalemia; I12.9 Hypertensive chronic kidney disease with stage 1 through stage 4 chronic kidney disease, or unspecified chronic kidney disease; N18.9 Chronic kidney disease, unspecified; Z96.649 Presence of unspecified artificial hip joint; Z79.82 Long term (current) use of aspirin; Z79.899 Other long term (current) drug therapy; Z95.5 Presence of coronary angioplasty implant and graft; Z79.02 Long term (current) use of antithrombotics/antiplatelets
CPT/HCPCS: 36415; 70496; 70553; 80048; 80053; 82533; 83735; 84443; 85025; 85060; 96372; 96374; A9579; G0378; J1650; J3475; Q9967; U0003; U0005

== ENCOUNTER 2022-10-29 21:17 | Observation (INO) | payer MEDICARE, OTHER ==
[2022-10-29 21:45] LABS: #Eosinphils 0.2 thou/uL (0.0-0.7); #Lymphocytes 1.3 thou/uL (1.20-3.40); #Neutrophils 6.6 thou/uL (1.40-6.50); %Basophils 0.3 % (0.0-1.0); %Eosinophils 1.9 % (0.0-10.0); %Lymphocytes 14.4 % (21.0-51.0); %Monocytes 10.4 % (0.0-10.0); Hemoglobin 8.5 g/dL (12.0-16.0); Mean Corpuscular Hemoglobin 23.5 pg (27.0-31.0); Mean Corpuscular Volume 75.7 fl (78.0-98.0); Mean Platelet Volume 8.3 fL (7.4-10.4); Platelet Count 344 10x3/uL (130-400); RBC Distribution Width 19.7 % (11.5-14.5); Red Blood Cell (RBC) Count 3.64 mill/uL (4.20-5.40); White Blood Cell (WBC) Count 9.1 10x3/uL (4.8-10.8)
[2022-10-29 22:06] LABS: ALT (SGPT) Less than 7 U/L (8-55); AST (SGOT) 11 U/L (5-34); Albumin 2.9 g/dL (3.4-4.8); Alkaline Phosphatase 71 U/L (40-110); Anion Gap 11 mmol/L (10-20); BUN (Urea Nitrogen) 6 mg/dL (9.8-20.1); Bilirubin, Total 0.4 mg/dL (0.2-1.2); Calc. Creatinine Clearance 0 mL/min (70-130); Calcium 8.4 mg/dL (7.8-10.44); Carbon Dioxide 22 mmol/L (23-31); Chloride 100 mmol/L (98-107); Estimated GFR 94; Globulin 3.1 g/dL (2.4-3.5); Glucose 101 mg/dL (83-110); Potassium 4.4 mmol/L (3.5-5.1); Sodium 129 mmol/L (136-145)
[2022-10-29] MEDS ORDERED: Aspirin 325 MG TAB ONE (22:26)
[2022-10-29 22:27] LABS: CKMB 0.4 ng/mL (0-6.6)
[2022-10-29] MEDS ORDERED: Nitroglycerin 2% Ointment 1 INCH/1 GM Packet ONE (22:27)
[2022-10-29] MEDS ORDERED: Aspirin Chewable 81 MG TAB ONE (22:28)
[2022-10-30] MEDS ORDERED: Acetaminophen 325 MG TAB PO PRN (00:22)
[2022-10-30] MEDS ORDERED: Ondansetron PF 4 MG/2 ML Vial IVP PRN (00:22)
[2022-10-30] MEDS ORDERED: Acetaminophen 650 MG Suppository PR PRN (00:22)
[2022-10-30] MEDS ORDERED: Ondansetron ODT 4 MG TAB PO PRN (00:22)
[2022-10-30] MEDS ORDERED: Morphine 4 MG/ML VIAL SLOW IVP PRN (00:30)
[2022-10-30 01:12] VITALS: BMI 24.5
[2022-10-30] MEDS ORDERED: hydrALAZINE 20 MG/ML VIAL SLOW IVP SCH (01:45)
[2022-10-30 01:49] LABS: Troponin I 0.084 ng/mL (< 0.028)
[2022-10-30] MEDS: Enoxaparin Sodium 60 MG/0.6 ML SYRINGE SC SCH ×2 (02:17→15:13)
[2022-10-30] MEDS: Sodium Chloride 0.9% 1,000 ML IV SCH ×2 (02:50→08:23)
[2022-10-30] MEDS ORDERED: Morphine 4 MG/ML VIAL SLOW IVP SCH (03:30)
[2022-10-30 05:20] LABS: #Eosinphils 0.1 thou/uL (0.0-0.7); #Lymphocytes 1.7 thou/uL (1.20-3.40); #Neutrophils 7.4 thou/uL (1.40-6.50); %Basophils 0.3 % (0.0-1.0); %Eosinophils 0.5 % (0.0-10.0); %Lymphocytes 16.3 % (21.0-51.0); %Monocytes 10.2 % (0.0-10.0); %Neutrophils 72.6 % (42.0-75.0); Hemoglobin 8.5 g/dL (12.0-16.0); Mean Corpuscular HGB CONC 29.7 g/dL (32.0-36.0); Mean Corpuscular Hemoglobin 22.6 pg (27.0-31.0); Mean Corpuscular Volume 76.1 fl (78.0-98.0); Mean Platelet Volume 8.2 fL (7.4-10.4); Platelet Count 398 10x3/uL (130-400); RBC Distribution Width 19.7 % (11.5-14.5); Red Blood Cell (RBC) Count 3.76 mill/uL (4.20-5.40); White Blood Cell (WBC) Count 10.2 10x3/uL (4.8-10.8)
[2022-10-30 05:39] LABS: Anion Gap 9 mmol/L (10-20); BUN (Urea Nitrogen) 6 mg/dL (9.8-20.1); Calc. Creatinine Clearance 87 mL/min (70-130); Carbon Dioxide 24 mmol/L (23-31); Chloride 101 mmol/L (98-107); Estimated GFR 95; Glucose 105 mg/dL (83-110); Iron 14 ug/dL (50-170); Iron Binding Capacity, Total 364 mcg/dL (265-497); Iron Binding Capacity, Total 375 mcg/dL (265-497); Sodium 130 mmol/L (136-145)
[2022-10-30 05:43] LABS: Troponin I 0.064 ng/mL (< 0.028)
[2022-10-30] MEDS ORDERED: Enoxaparin Sodium 30 MG/0.3 ML SYRINGE SC SCH (09:00)
[2022-10-30] MEDS ORDERED: Aspirin 81 mg Enteric Coated Tablet PO SCH (09:00)
[2022-10-30] MEDS ORDERED: Albuterol 200 PUFF (6.7GM INHALER) INH PRN (10:11)
[2022-10-30] MEDS ORDERED: Iron Sucrose Complex 200 MG in Sodium Chloride 0.9% 100 ML IVPB SCH (13:30)
[2022-10-30] MEDS ORDERED: Iron, Sodium Ferric Gluconate 250 MG in Sodium Chloride 0.9% 250 ML 250 ML IVPB SCH (14:00)
[2022-10-30 15:02] VITALS: BP 164/74; TEMP 98.8
[2022-10-30] MEDS ORDERED: Cholecalciferol 1,000 UNITS (25 MCG) TAB PO SCH (21:00)
[2022-10-30] MEDS ORDERED: Pregabalin 75 MG CAP PO SCH (21:00)
[2022-10-30] MEDS ORDERED: Atorvastatin Calcium 40 MG TAB PO SCH (21:00)
[2022-10-30] MEDS ORDERED: Ezetimibe 10 MG TAB PO SCH (21:00)
[2022-10-30] MEDS ORDERED: Carvedilol 6.25 MG TAB PO SCH (21:00)
[2022-10-31] MEDS ORDERED: Aspirin Chewable 81 MG TAB PO SCH (09:00)
[2022-10-31] MEDS ORDERED: Potassium Chloride 20 MEQ TAB PO SCH (09:00)
[2022-10-31] MEDS ORDERED: Clopidogrel Bisulfate 75 MG TAB PO SCH (09:00)
[2022-10-31] MEDS ORDERED: DULoxetine 30 MG CAP PO SCH (09:00)
== END 2022-10-30 17:48 | disposition home or self-care (01) ==
LOC: ERS 21:17 → 2SW 22:58
PROVIDERS: ADMIT Internal Medicine; ATTEND Internal Medicine
DX: R07.9 Chest pain, unspecified (principal); D50.9 Iron deficiency anemia, unspecified; E87.1 Hypo-osmolality and hyponatremia; J44.9 Chronic obstructive pulmonary disease, unspecified; I25.10 Atherosclerotic heart disease of native coronary artery without angina pectoris; I25.84 Coronary atherosclerosis due to calcified coronary lesion; I10 Essential (primary) hypertension; G62.9 Polyneuropathy, unspecified; I73.9 Peripheral vascular disease, unspecified; F17.210 Nicotine dependence, cigarettes, uncomplicated; Z79.82 Long term (current) use of aspirin; Z79.899 Other long term (current) drug therapy; Z88.5 Allergy status to narcotic agent; Z88.8 Allergy status to other drugs, medicaments and biological substances; Z95.5 Presence of coronary angioplasty implant and graft; Z95.820 Peripheral vascular angioplasty status with implants and grafts; Z20.822 Contact with and (suspected) exposure to COVID-19
CPT/HCPCS: 71045; 80048; 80053; 82553; 82728; 83540; 83550; 83880; 84484 ×3; 85025 ×2; 93005 ×2; 93971; 96365; 96366; 96372; 96375; 96376; 99285; G0378 ×3; U0003; U0005; 36415; 93010; J0360; J1650; J2270; J2916; J7050

== ENCOUNTER 2023-03-12 08:52 | Day surgery (SDC) | payer OTHER ==
[2023-03-11 10:01] VITALS: BMI 22.3
[2023-03-12] MEDS ORDERED: PROPOFOL 200 MG/20 ML VIAL ONE (11:47)
== END 2023-03-12 12:47 | disposition home or self-care (01) ==
LOC: SDC 08:52
PROVIDERS: ATTEND Internal Medicine Gastroenterology
PROC: 0DB78ZX Excision of Stomach, Pylorus, Via Natural or Artificial Opening Endoscopic, Diagnostic (ICD-10-PCS; principal; 2023-03-12)
DX: K29.50 Unspecified chronic gastritis without bleeding (principal); K25.9 Gastric ulcer, unspecified as acute or chronic, without hemorrhage or perforation; K31.819 Angiodysplasia of stomach and duodenum without bleeding; R63.0 Anorexia; F17.210 Nicotine dependence, cigarettes, uncomplicated; I10 Essential (primary) hypertension; J44.9 Chronic obstructive pulmonary disease, unspecified; G89.29 Other chronic pain; M54.9 Dorsalgia, unspecified; E78.5 Hyperlipidemia, unspecified; I25.119 Atherosclerotic heart disease of native coronary artery with unspecified angina pectoris; I25.2 Old myocardial infarction; K21.9 Gastro-esophageal reflux disease without esophagitis; Z68.22 Body mass index [BMI] 22.0-22.9, adult; Z79.82 Long term (current) use of aspirin; Z79.899 Other long term (current) drug therapy; Z88.5 Allergy status to narcotic agent; Z88.8 Allergy status to other drugs, medicaments and biological substances; Z95.5 Presence of coronary angioplasty implant and graft
CPT/HCPCS: 88305; 88342; J2704

== ENCOUNTER 2023-07-12 15:02 | Observation (INO) | payer OTHER ==
[2023-07-12] MEDS ORDERED: Nitroglycerin 0.4 MG TAB (25 Tab Bottle) SL PRN (15:23)
[2023-07-12] MEDS ORDERED: Bisacodyl 10 MG SUPP PR PRN (15:23)
[2023-07-12] MEDS ORDERED: Senokot S 8.6-50 MG TAB PO PRN (15:23)
[2023-07-12] MEDS ORDERED: Bisacodyl 5 MG TAB PO PRN (15:23)
[2023-07-12 16:02] VITALS: BMI 19.1
[2023-07-12] MEDS ORDERED: Lisinopril 10 MG TAB PO SCH (17:00)
[2023-07-12] MEDS ORDERED: Amlodipine 10 MG TAB PO SCH (17:30)
[2023-07-12] MEDS ORDERED: Atorvastatin Calcium 40 MG TAB PO SCH (21:00)
[2023-07-12] MEDS ORDERED: Ezetimibe 10 MG TAB PO SCH (21:00)
[2023-07-12] MEDS ORDERED: Pregabalin 75 MG CAP PO SCH (21:00)
[2023-07-12] MEDS: Cholecalciferol 1,000 UNITS (25 MCG) TAB PO SCH (21:19)
[2023-07-13] MEDS: Acetaminophen 325 MG TAB PO PRN ×2 (03:53→09:39)
[2023-07-13 05:02] LABS: #Eosinphils 0.1 thou/uL (0.0-0.7); #Monocytes 0.9 thou/uL (0.11-0.59); #Neutrophils 3.1 thou/uL (1.40-6.50); %Basophils 0.6 % (0.0-1.0); %Eosinophils 1.1 % (0.0-10.0); %Lymphocytes 24.7 % (21.0-51.0); %Monocytes 16.7 % (0.0-10.0); %Neutrophils 56.5 % (42.0-75.0); Hematocrit 37.3 % (36.0-47.0); Hemoglobin 12.7 g/dL (12.0-16.0); Mean Corpuscular Hemoglobin 28.2 pg (27.0-31.0); Mean Corpuscular Volume 82.7 fl (78.0-98.0); Mean Platelet Volume 9.4 fL (7.4-10.4); Platelet Count 289 10x3/uL (130-400); RBC Distribution Width 13.7 % (11.5-14.5); Red Blood Cell (RBC) Count 4.51 mill/uL (4.20-5.40); White Blood Cell (WBC) Count 5.4 10x3/uL (4.8-10.8)
[2023-07-13 05:17] LABS: Hemoglobin A1c 4.7 % (4.0-6.0)
[2023-07-13 05:42] LABS: Anion Gap 12 mmol/L (10-20); BUN (Urea Nitrogen) 5 mg/dL (9.8-20.1); Calc. Creatinine Clearance 77 mL/min (70-130); Calcium 9.4 mg/dL (7.8-10.44); Carbon Dioxide 24 mmol/L (23-31); Cardiac Risk 2.5 (Less than 4.5); Chloride 99 mmol/L (98-107); Cholesterol 101 mg/dl (< 200 Desired); Estimated GFR 97; Glucose 85 mg/dL (83-110); HDL Cholesterol 41 mg/dL (>60 Neg Risk); LDL Cholesterol, Calculated 49 mg/dL; Magnesium 1.5 mg/dL (1.6-2.6); Potassium 3.3 mmol/L (3.5-5.1); Sodium 132 mmol/L (136-145); Triglycerides 56 mg/dL (Less than 150)
[2023-07-13 05:43] LABS: ALT (SGPT) Less than 7 U/L (8-55); AST (SGOT) 12 U/L (5-34); Albumin 2.6 g/dL (3.4-4.8); Alkaline Phosphatase 70 U/L (40-110); Bilirubin, Direct 0.5 mg/dL (0.1-0.3); Bilirubin, Total 0.8 mg/dL (0.2-1.2); Protein, Total 6.3 g/dL (5.8-8.1)
[2023-07-13] MEDS ORDERED: Potassium Chloride 20 MEQ TAB PO SCH (09:00)
[2023-07-13] MEDS ORDERED: Amlodipine 5 MG TAB PO SCH (09:00)
[2023-07-13] MEDS ORDERED: DULoxetine 30 MG CAP PO SCH (09:00)
[2023-07-13] MEDS ORDERED: Aspirin Chewable 81 MG TAB PO SCH (09:00)
[2023-07-13] MEDS ORDERED: Magnesium 2 GM/50 ML(in water) 2 GM in Premix Bag 1 BAG IVPB SCH (09:00)
[2023-07-13] MEDS: Cholecalciferol 1,000 UNITS (25 MCG) TAB PO SCH (09:41)
[2023-07-13] MEDS ORDERED: Non-Formulary Item 1 EACH (Albuterol Sulfate [Proair Digihaler] 90 MCG Aer.Pw.Bas) IH PRN (10:08)
[2023-07-13] MEDS ORDERED: Carvedilol 6.25 MG TAB PO SCH ×2 (10:15→21:00)
[2023-07-13 12:10] VITALS: BP 146/75; TEMP 98.4
== END 2023-07-13 13:40 | disposition home or self-care (01) ==
LOC: 2SW 15:02
PROVIDERS: ADMIT Family Medicine; ATTEND Internal Medicine
DX: R07.9 Chest pain, unspecified (principal); I16.0 Hypertensive urgency; I10 Essential (primary) hypertension; I25.10 Atherosclerotic heart disease of native coronary artery without angina pectoris; I73.9 Peripheral vascular disease, unspecified; J44.9 Chronic obstructive pulmonary disease, unspecified; F17.210 Nicotine dependence, cigarettes, uncomplicated; Z79.899 Other long term (current) drug therapy; Z88.6 Allergy status to analgesic agent; Z88.8 Allergy status to other drugs, medicaments and biological substances; Z79.82 Long term (current) use of aspirin
CPT/HCPCS: 36415; 80048; 80061; 80076; 83036; 83735; 84443; 85025; 86850; 86900; 86901; 94760; 96374; G0378; J3475

== ENCOUNTER 2023-07-21 13:12 | Emergency (ER) | payer OTHER ==
[2023-07-21 14:11] LABS: #Eosinphils 0.1 thou/uL (0.0-0.7); #Monocytes 1.2 thou/uL (0.11-0.59); #Neutrophils 4.4 thou/uL (1.40-6.50); %Basophils 0.6 % (0.0-1.0); %Eosinophils 0.7 % (0.0-10.0); %Lymphocytes 20.5 % (21.0-51.0); %Monocytes 16.7 % (0.0-10.0); %Neutrophils 60.9 % (42.0-75.0); Hematocrit 36.2 % (36.0-47.0); Hemoglobin 11.9 g/dL (12.0-16.0); Mean Corpuscular HGB CONC 32.9 g/dL (32.0-36.0); Mean Corpuscular Hemoglobin 27.7 pg (27.0-31.0); Mean Corpuscular Volume 84.4 fl (78.0-98.0); Mean Platelet Volume 9.1 fL (7.4-10.4); Platelet Count 330 10x3/uL (130-400); RBC Distribution Width 14.2 % (11.5-14.5); Red Blood Cell (RBC) Count 4.29 mill/uL (4.20-5.40); White Blood Cell (WBC) Count 7.3 10x3/uL (4.8-10.8)
[2023-07-21 14:36] LABS: ALT (SGPT) Less than 7 U/L (8-55); AST (SGOT) 10 U/L (5-34); Albumin 2.8 g/dL (3.4-4.8); Alkaline Phosphatase 60 U/L (40-110); Anion Gap 10 mmol/L (10-20); BUN (Urea Nitrogen) 4 mg/dL (9.8-20.1); Bilirubin, Total 0.4 mg/dL (0.2-1.2); Calc. Creatinine Clearance 0 mL/min (70-130); Calcium 9.4 mg/dL (7.8-10.44); Carbon Dioxide 28 mmol/L (23-31); Chloride 95 mmol/L (98-107); Estimated GFR 95; Globulin 3.7 g/dL (2.4-3.5); Glucose 91 mg/dL (83-110); Potassium 3.2 mmol/L (3.5-5.1); Protein, Total 6.5 g/dL (5.8-8.1); Sodium 130 mmol/L (136-145)
[2023-07-21] MEDS ORDERED: HYDROcodone/Acetaminophen 5/325 mg Tablet ONE (15:36)
[2023-07-21] MEDS ORDERED: Potassium Chloride 20 MEQ TAB ONE (15:36)
== END 2023-07-21 15:45 | disposition home or self-care (01) ==
LOC: ERS 13:12
DX: M79.604 Pain in right leg (principal)
CPT/HCPCS: 36415; 80053; 85025; 85379

== ENCOUNTER 2023-08-04 09:20 | Outpatient (CLI) | payer OTHER ==
[2023-08-04] MEDS ORDERED: Iopamidol 370 76% 100 ML VIAL ONE (11:36)
== END 2023-08-04 09:21 | disposition home or self-care (01) ==
LOC: CT 09:20
PROVIDERS: ATTEND Thoracic Surgery (Cardiothoracic Vascular Surgery)
DX: I25.10 Atherosclerotic heart disease of native coronary artery without angina pectoris (principal); I70.201 Unspecified atherosclerosis of native arteries of extremities, right leg; T82.855A Stenosis of coronary artery stent, initial encounter
CPT/HCPCS: 75635; Q9967

== ENCOUNTER 2023-08-13 11:30 | Inpatient (IN) | payer OTHER ==
[2023-08-13 12:37] LABS: Hematocrit 33.8 % (34.9-44.5); Hemoglobin 11.4 g/dL (12.0-15.5); Mean Corpuscular HGB CONC 33.7 g/dL (32.0-36.0); Mean Corpuscular Hemoglobin 27.5 pg (27.0-33.0); Mean Corpuscular Volume 81.4 fl (81.6-98.3); Platelet Count 392 10x3/uL (150-450); RBC Distribution Width 14.7 % (11.5-14.5); Red Blood Cell (RBC) Count 4.15 10x6/uL (3.90-5.03); White Blood Cell (WBC) Count 5.3 10x3/uL (3.5-10.5)
[2023-08-13 12:44] LABS: Anion Gap 8 mmol/L (10-20); BUN (Urea Nitrogen) 4 mg/dL (9.8-20.1); Calc. Creatinine Clearance 0 mL/min (70-130); Calcium 9.1 mg/dL (7.8-10.44); Carbon Dioxide 30 mmol/L (23-31); Chloride 97 mmol/L (98-107); Estimated GFR 93; Glucose 118 mg/dL (83-110); Potassium 3.2 mmol/L (3.5-5.1); Sodium 132 mmol/L (136-145)
[2023-08-16] MEDS ORDERED: Heparin 5,000 UNITS/ML VIAL ONE (06:41)
[2023-08-16] MEDS ORDERED: Protamine Sulfate 50 MG/5 ML VIAL ONE (06:41)
[2023-08-16] MEDS ORDERED: Norepinephrine 4 MG/4 ML VIAL ONE (06:45)
[2023-08-16] MEDS ORDERED: Vasopressin 20 UNITS/ML VIAL ONE (06:45)
[2023-08-16] MEDS ORDERED: fentaNYL PF 100 MCG/2 ML SYRINGE ONE (06:45)
[2023-08-16] MEDS ORDERED: Lidocaine 1% PF 5 ML VIAL ONE (07:04)
[2023-08-16] MEDS ORDERED: Iopamidol 0 ML ONE (07:11)
[2023-08-16] MEDS ORDERED: CEFAZOLIN 2 GM VIAL ONE ×2 (07:16→16:35)
[2023-08-16] MEDS ORDERED: Sodium Chloride 0.9% 100 ML ONE ×2 (07:16→16:36)
[2023-08-16] MEDS ORDERED: Ondansetron PF 4 MG/2 ML Vial ONE (07:35)
[2023-08-16] MEDS ORDERED: Glycopyrrolate 0.2 MG/ML 5 ML SYRINGE ONE (07:35)
[2023-08-16] MEDS ORDERED: Rocuronium Bromide 10 MG/ML (10ML VIAL) ONE (07:35)
[2023-08-16] MEDS ORDERED: NEOSTIGMINE 3 MG/3 ML SYR 3 MG/3 ML SYRINGE ONE (07:35)
[2023-08-16] MEDS ORDERED: ePHEDrine Sulfate 50 MG/10 ML VIAL ONE (07:35)
[2023-08-16] MEDS ORDERED: PHENYLEPHRINE-NS 100 MCG/ML 10 ML SYRINGE ONE (07:35)
[2023-08-16] MEDS ORDERED: PROPOFOL 200 MG/20 ML VIAL ONE (07:35)
[2023-08-16] MEDS ORDERED: Ondansetron HCl/PF 4 MG/2 ML Vial IVP PRN (11:16)
[2023-08-16] MEDS ORDERED: Promethazine HCl 25 MG/ML VIAL IM PRN (11:16)
[2023-08-16] MEDS ORDERED: traMADol HCl 50 MG TAB PO PRN (11:57)
[2023-08-16] MEDS ORDERED: Ondansetron PF 4 MG/2 ML Vial IVP PRN (11:57)
[2023-08-16] MEDS ORDERED: Ipratropium/Albuterol 3 ML NEB NEB PRN (11:57)
[2023-08-16] MEDS ORDERED: fentaNYL 50 mcg/mL 1 mL Vial SLOW IVP PRN (11:57)
[2023-08-16] MEDS ORDERED: Sodium Chloride 0.9% 1,000 ML IV SCH (11:57)
[2023-08-16] MEDS ORDERED: fentaNYL 50 mcg/mL 1 mL Vial ONE (12:22)
[2023-08-16] MEDS ORDERED: CEFAZOLIN 2 GM in Sodium Chloride 0.9% 100 ML IVPB SCH (14:00)
[2023-08-16] MEDS ORDERED: Non-Formulary Item 1 EACH (Hydralazine Hcl [Apresoline] 50 MG Tab) PO SCH (15:00)
[2023-08-16] MEDS ORDERED: traMADol HCl 50 MG TAB ONE (15:47)
[2023-08-16] MEDS: traMADol HCl 50 MG TAB PO PRN (15:53)
[2023-08-16] MEDS: CEFAZOLIN 2 GM in Sodium Chloride 0.9% 100 ML IVPB SCH (16:39)
[2023-08-16] MEDS: hydrALAZINE 25 MG TAB PO SCH ×2 (17:38→20:36)
[2023-08-16 17:39] VITALS: BMI 18.8
[2023-08-16] MEDS: Carvedilol 6.25 MG TAB PO SCH (20:35)
[2023-08-16] MEDS: Atorvastatin Calcium 40 MG TAB PO SCH (20:36)
[2023-08-16] MEDS ORDERED: Non-Formulary Item 1 EACH (Carvedilol [Coreg] 12.5 MG Tab) PO SCH (21:00)
[2023-08-17] MEDS: CEFAZOLIN 2 GM in Sodium Chloride 0.9% 100 ML IVPB SCH ×2 (00:52→09:03)
[2023-08-17] MEDS: traMADol HCl 50 MG TAB PO PRN (00:52)
[2023-08-17] MEDS ORDERED: Non-Formulary Item 1 EACH (Atorvastatin Calcium [Atorvastatin Calcium] 80 MG Tablet) PO SCH (09:00)
[2023-08-17] MEDS: Clopidogrel Bisulfate 75 MG TAB PO SCH (09:03)
[2023-08-17] MEDS: DULoxetine 30 MG CAP PO SCH (09:03)
[2023-08-17] MEDS: Aspirin Chewable 81 MG TAB PO SCH (09:03)
[2023-08-17] MEDS: hydrALAZINE 25 MG TAB PO SCH (09:04)
[2023-08-17] MEDS: Carvedilol 6.25 MG TAB PO SCH (11:31)
[2023-08-17] MEDS ORDERED: Sodium Chloride 0.9% 500 ML IV SCH (11:45)
[2023-08-17] MEDS: Atorvastatin Calcium 40 MG TAB PO SCH (19:51)
[2023-08-18] MEDS: DULoxetine 30 MG CAP PO SCH (08:05)
[2023-08-18] MEDS: Clopidogrel Bisulfate 75 MG TAB PO SCH (08:05)
[2023-08-18] MEDS: Aspirin Chewable 81 MG TAB PO SCH (08:05)
[2023-08-18] MEDS ORDERED: Carvedilol 6.25 MG TAB PO SCH (08:30)
[2023-08-18] MEDS: Carvedilol 6.25 MG TAB PO SCH (19:33)
[2023-08-18] MEDS: Atorvastatin Calcium 40 MG TAB PO SCH (19:33)
[2023-08-18] MEDS: Acetaminophen 325 MG TAB PO PRN (19:33)
[2023-08-19] MEDS: Acetaminophen 325 MG TAB PO PRN (00:57)
[2023-08-19] MEDS: Lactated Ringer's 1,000 ML IV SCH ×2 (07:36→22:38)
[2023-08-19 08:35] LABS: #Monocytes 0.8 thou/uL (0.11-0.59); #Neutrophils 10.4 thou/uL (1.40-6.50); %Basophils 0.2 % (0.0-1.0); %Lymphocytes 6.2 % (21.0-51.0); %Monocytes 6.6 % (0.0-10.0); %Neutrophils 86.5 % (42.0-75.0); Hemoglobin 8.7 g/dL (12.0-16.0); Mean Corpuscular HGB CONC 33.5 g/dL (32.0-36.0); Mean Corpuscular Hemoglobin 27.3 pg (27.0-31.0); Mean Corpuscular Volume 81.5 fl (78.0-98.0); Mean Platelet Volume 9.3 fL (7.4-10.4); Platelet Count 339 10x3/uL (130-400); RBC Distribution Width 14.7 % (11.5-14.5); Red Blood Cell (RBC) Count 3.19 mill/uL (4.20-5.40); White Blood Cell (WBC) Count 12.1 10x3/uL (4.8-10.8)
[2023-08-19] MEDS: DULoxetine 30 MG CAP PO SCH (08:50)
[2023-08-19] MEDS: Aspirin Chewable 81 MG TAB PO SCH (08:51)
[2023-08-19] MEDS: Carvedilol 6.25 MG TAB PO SCH ×2 (08:51→21:50)
[2023-08-19 08:55] LABS: Anion Gap 11 mmol/L (10-20); BUN (Urea Nitrogen) 8 mg/dL (9.8-20.1); Calc. Creatinine Clearance 85 mL/min (70-130); Calcium 9.4 mg/dL (7.8-10.44); Carbon Dioxide 24 mmol/L (23-31); Chloride 96 mmol/L (98-107); Estimated GFR 99; Glucose 110 mg/dL (83-110); Potassium 3.3 mmol/L (3.5-5.1); Sodium 128 mmol/L (136-145)
[2023-08-19] MEDS ORDERED: Heparin 5,000 UNITS/ML VIAL ONE (11:47)
[2023-08-19] MEDS ORDERED: Protamine Sulfate 50 MG/5 ML VIAL ONE (11:47)
[2023-08-19] MEDS ORDERED: Sodium Chloride 0.9% 100 ML ONE (12:57)
[2023-08-19] MEDS ORDERED: CEFAZOLIN 2 GM VIAL ONE (12:57)
[2023-08-19] MEDS ORDERED: fentaNYL PF 100 MCG/2 ML SYRINGE ONE (13:08)
[2023-08-19] MEDS ORDERED: Dexamethasone 20 MG/5 ML VIAL ONE (13:10)
[2023-08-19] MEDS ORDERED: PROPOFOL 200 MG/20 ML VIAL ONE (13:10)
[2023-08-19] MEDS ORDERED: Rocuronium Bromide 10 MG/ML (10ML VIAL) ONE (13:10)
[2023-08-19] MEDS ORDERED: Ondansetron PF 4 MG/2 ML Vial ONE (13:10)
[2023-08-19] MEDS ORDERED: PHENYLEPHRINE-NS 100 MCG/ML 10 ML SYRINGE ONE (13:10)
[2023-08-19] MEDS ORDERED: Lidocaine 1% PF 5 ML VIAL ONE (13:10)
[2023-08-19] MEDS ORDERED: Phenylephrine 10 MG/ML VIAL ONE (14:07)
[2023-08-19] MEDS ORDERED: fentaNYL 50 mcg/mL 1 mL Vial ONE (16:04)
[2023-08-19 17:33] LABS: Hematocrit 22.9 % (36.0-47.0); Hemoglobin 7.6 g/dL (12.0-16.0); Platelet Count 310 10x3/uL (130-400)
[2023-08-19] MEDS ORDERED: Promethazine HCl 25 MG/ML VIAL IM/IV PRN (18:00)
[2023-08-19] MEDS ORDERED: Ondansetron HCl/PF 4 MG/2 ML Vial IVP PRN (18:00)
[2023-08-19] MEDS ORDERED: Meperidine HCl/PF 25 MG/ML VIAL IV PRN (18:00)
[2023-08-19] MEDS: Atorvastatin Calcium 40 MG TAB PO SCH (21:50)
[2023-08-19] MEDS: CEFAZOLIN 2 GM in Sodium Chloride 0.9% 100 ML IVPB SCH (21:51)
[2023-08-19] MEDS: Vancomycin 1 GM in Premix Bag 1 BAG IVPB SCH (21:52)
[2023-08-20 04:44] LABS: #Monocytes 0.7 thou/uL (0.11-0.59); %Basophils 0.1 % (0.0-1.0); %Lymphocytes 7.3 % (21.0-51.0); %Monocytes 7.9 % (0.0-10.0); %Neutrophils 84.2 % (42.0-75.0); Hemoglobin 6.4 g/dL (12.0-16.0); Mean Corpuscular HGB CONC 33.7 g/dL (32.0-36.0); Mean Corpuscular Hemoglobin 27.5 pg (27.0-31.0); Mean Corpuscular Volume 81.5 fl (78.0-98.0); Mean Platelet Volume 9.4 fL (7.4-10.4); Platelet Count 284 10x3/uL (130-400); RBC Distribution Width 14.8 % (11.5-14.5); Red Blood Cell (RBC) Count 2.33 mill/uL (4.20-5.40); White Blood Cell (WBC) Count 8.3 10x3/uL (4.8-10.8)
[2023-08-20 05:24] LABS: Anion Gap 11 mmol/L (10-20); BUN (Urea Nitrogen) 8 mg/dL (9.8-20.1); Calc. Creatinine Clearance 85 mL/min (70-130); Calcium 8.7 mg/dL (7.8-10.44); Carbon Dioxide 25 mmol/L (23-31); Chloride 97 mmol/L (98-107); Estimated GFR 99; Glucose 111 mg/dL (83-110); Potassium 3.6 mmol/L (3.5-5.1); Sodium 129 mmol/L (136-145)
[2023-08-20] MEDS: CEFAZOLIN 2 GM in Sodium Chloride 0.9% 100 ML IVPB SCH ×3 (06:04→22:36)
[2023-08-20] MEDS: Vancomycin 1 GM in Premix Bag 1 BAG IVPB SCH ×2 (08:57→20:52)
[2023-08-20] MEDS: DULoxetine 30 MG CAP PO SCH (08:57)
[2023-08-20] MEDS: Aspirin Chewable 81 MG TAB PO SCH (08:57)
[2023-08-20] MEDS: Carvedilol 6.25 MG TAB PO SCH ×2 (08:57→20:51)
[2023-08-20 11:58] LABS: Hematocrit 22.4 % (36.0-47.0); Hemoglobin 7.6 g/dL (12.0-16.0); Mean Corpuscular HGB CONC 33.9 g/dL (32.0-36.0); Mean Corpuscular Hemoglobin 27.4 pg (27.0-31.0); Mean Corpuscular Volume 80.9 fl (78.0-98.0); Mean Platelet Volume 9.5 fL (7.4-10.4); Platelet Count 270 10x3/uL (130-400); RBC Distribution Width 14.7 % (11.5-14.5); Red Blood Cell (RBC) Count 2.77 mill/uL (4.20-5.40); White Blood Cell (WBC) Count 10.3 10x3/uL (4.8-10.8)
[2023-08-20] MEDS: Lactated Ringer's 1,000 ML IV SCH (13:34)
[2023-08-20] MEDS: Atorvastatin Calcium 40 MG TAB PO SCH (20:52)
[2023-08-21] MEDS: Lactated Ringer's 1,000 ML IV SCH (03:11)
[2023-08-21 04:18] LABS: #Monocytes 0.9 thou/uL (0.11-0.59); #Neutrophils 4.5 thou/uL (1.40-6.50); %Basophils 0.2 % (0.0-1.0); %Eosinophils 0.3 % (0.0-10.0); %Lymphocytes 16.5 % (21.0-51.0); %Monocytes 14.2 % (0.0-10.0); %Neutrophils 68.5 % (42.0-75.0); Hematocrit 20.5 % (36.0-47.0); Mean Corpuscular HGB CONC 34.1 g/dL (32.0-36.0); Mean Corpuscular Hemoglobin 27.8 pg (27.0-31.0); Mean Corpuscular Volume 81.3 fl (78.0-98.0); Mean Platelet Volume 9.4 fL (7.4-10.4); Platelet Count 262 10x3/uL (130-400); RBC Distribution Width 14.8 % (11.5-14.5); Red Blood Cell (RBC) Count 2.52 mill/uL (4.20-5.40); White Blood Cell (WBC) Count 6.6 10x3/uL (4.8-10.8)
[2023-08-21 04:44] LABS: Anion Gap 9 mmol/L (10-20); BUN (Urea Nitrogen) 8 mg/dL (9.8-20.1); Calc. Creatinine Clearance 97 mL/min (70-130); Calcium 8.4 mg/dL (7.8-10.44); Carbon Dioxide 26 mmol/L (23-31); Chloride 97 mmol/L (98-107); Estimated GFR 100; Glucose 85 mg/dL (83-110); Potassium 3.1 mmol/L (3.5-5.1); Sodium 129 mmol/L (136-145)
[2023-08-21] MEDS: CEFAZOLIN 2 GM in Sodium Chloride 0.9% 100 ML IVPB SCH ×3 (05:44→20:30)
[2023-08-21] MEDS ORDERED: Potassium Chloride 20 MEQ TAB PO SCH ×2 (06:15→12:30)
[2023-08-21] MEDS: Aspirin Chewable 81 MG TAB PO SCH (09:41)
[2023-08-21] MEDS: DULoxetine 30 MG CAP PO SCH (09:41)
[2023-08-21] MEDS: Carvedilol 6.25 MG TAB PO SCH ×2 (09:41→20:26)
[2023-08-21] MEDS ORDERED: Furosemide 20 MG/2 ML VIAL SLOW IVP SCH (12:30)
[2023-08-21] MEDS: Atorvastatin Calcium 40 MG TAB PO SCH (20:25)
[2023-08-22] MEDS: CEFAZOLIN 2 GM in Sodium Chloride 0.9% 100 ML IVPB SCH (05:25)
[2023-08-22 07:53] LABS: #Eosinphils 0.1 thou/uL (0.0-0.7); #Neutrophils 6.3 thou/uL (1.40-6.50); %Basophils 0.2 % (0.0-1.0); %Eosinophils 0.8 % (0.0-10.0); %Lymphocytes 12.2 % (21.0-51.0); %Monocytes 11.8 % (0.0-10.0); %Neutrophils 74.6 % (42.0-75.0); Hematocrit 24.4 % (36.0-47.0); Hemoglobin 8.5 g/dL (12.0-16.0); Mean Corpuscular HGB CONC 34.8 g/dL (32.0-36.0); Mean Corpuscular Volume 80.3 fl (78.0-98.0); Mean Platelet Volume 9.1 fL (7.4-10.4); Platelet Count 282 10x3/uL (130-400); RBC Distribution Width 14.6 % (11.5-14.5); Red Blood Cell (RBC) Count 3.04 mill/uL (4.20-5.40); White Blood Cell (WBC) Count 8.4 10x3/uL (4.8-10.8)
[2023-08-22 08:16] LABS: Anion Gap 12 mmol/L (10-20); BUN (Urea Nitrogen) 5 mg/dL (9.8-20.1); Calc. Creatinine Clearance 0 mL/min (70-130); Calcium 8.5 mg/dL (7.8-10.44); Carbon Dioxide 27 mmol/L (23-31); Chloride 100 mmol/L (98-107); Estimated GFR 99; Glucose 100 mg/dL (83-110); Potassium 3.6 mmol/L (3.5-5.1); Sodium 135 mmol/L (136-145)
[2023-08-22] MEDS: DULoxetine 30 MG CAP PO SCH (09:40)
[2023-08-22] MEDS: Carvedilol 6.25 MG TAB PO SCH ×2 (09:40→21:24)
[2023-08-22] MEDS: Aspirin Chewable 81 MG TAB PO SCH (09:40)
[2023-08-22] MEDS: Atorvastatin Calcium 40 MG TAB PO SCH (21:23)
[2023-08-23 05:14] LABS: #Eosinphils 0.1 thou/uL (0.0-0.7); #Monocytes 0.9 thou/uL (0.11-0.59); #Neutrophils 5.5 thou/uL (1.40-6.50); %Basophils 0.4 % (0.0-1.0); %Eosinophils 0.9 % (0.0-10.0); %Lymphocytes 16.3 % (21.0-51.0); %Monocytes 11.7 % (0.0-10.0); %Neutrophils 70.2 % (42.0-75.0); Hematocrit 24.5 % (36.0-47.0); Hemoglobin 8.4 g/dL (12.0-16.0); Mean Corpuscular HGB CONC 34.3 g/dL (32.0-36.0); Mean Corpuscular Hemoglobin 27.2 pg (27.0-31.0); Mean Corpuscular Volume 79.3 fl (78.0-98.0); Mean Platelet Volume 8.9 fL (7.4-10.4); Platelet Count 283 10x3/uL (130-400); RBC Distribution Width 14.6 % (11.5-14.5); Red Blood Cell (RBC) Count 3.09 mill/uL (4.20-5.40); White Blood Cell (WBC) Count 7.8 10x3/uL (4.8-10.8)
[2023-08-23 05:40] LABS: Anion Gap 9 mmol/L (10-20); BUN (Urea Nitrogen) 5 mg/dL (9.8-20.1); Calc. Creatinine Clearance 0 mL/min (70-130); Calcium 8.2 mg/dL (7.8-10.44); Carbon Dioxide 27 mmol/L (23-31); Chloride 98 mmol/L (98-107); Estimated GFR 101; Glucose 86 mg/dL (83-110); Potassium 3.3 mmol/L (3.5-5.1); Sodium 131 mmol/L (136-145)
[2023-08-23] MEDS: Aspirin Chewable 81 MG TAB PO SCH (09:36)
[2023-08-23] MEDS: DULoxetine 30 MG CAP PO SCH (09:36)
[2023-08-23] MEDS: Carvedilol 6.25 MG TAB PO SCH (09:36)
[2023-08-23 16:00] VITALS: BP 164/71; TEMP 98.2
== END 2023-08-23 17:23 | DRG 253 ==
LOC: SURG A 08-16 05:53 → 2NO 08-16 17:30 → SURG A 08-19 18:21 → CCU 08-19 21:34 → SJJU 08-22 20:18
PROVIDERS: ADMIT Thoracic Surgery (Cardiothoracic Vascular Surgery); ATTEND Thoracic Surgery (Cardiothoracic Vascular Surgery)
PROC: 041 Lower Arteries, Bypass (ICD-10-PCS; principal; 2023-08-16)
PROC: 047H0DZ Dilation of Right External Iliac Artery with Intraluminal Device, Open Approach (ICD-10-PCS; 2023-08-16)
PROC: 06BP0ZZ Excision of Right Saphenous Vein, Open Approach (ICD-10-PCS; 2023-08-16)
PROC: B4101ZZ Fluoroscopy of Abdominal Aorta using Low Osmolar Contrast (ICD-10-PCS; 2023-08-16)
PROC: B41F1ZZ Fluoroscopy of Right Lower Extremity Arteries using Low Osmolar Contrast (ICD-10-PCS; 2023-08-16)
PROC: 0Y9H0ZZ Drainage of Right Lower Leg, Open Approach (ICD-10-PCS; 2023-08-20)
PROC: 30233N1 Transfusion of Nonautologous Red Blood Cells into Peripheral Vein, Percutaneous Approach (ICD-10-PCS; 2023-08-20)
DX: I70.221 Atherosclerosis of native arteries of extremities with rest pain, right leg (principal); E87.1 Hypo-osmolality and hyponatremia; I97.638 Postprocedural hematoma of a circulatory system organ or structure following other circulatory system procedure; I10 Essential (primary) hypertension; M19.90 Unspecified osteoarthritis, unspecified site; E78.5 Hyperlipidemia, unspecified; Z96.642 Presence of left artificial hip joint; F17.210 Nicotine dependence, cigarettes, uncomplicated; Y83.8 Other surgical procedures as the cause of abnormal reaction of the patient, or of later complication, without mention of misadventure at the time of the procedure; I25.2 Old myocardial infarction; Z98.51 Tubal ligation status; Z95.5 Presence of coronary angioplasty implant and graft
CPT/HCPCS: 36415; 36430; 71045; 80048; 85025; 85027; 86850; 86900; 86901; 87070; 87205; C1725; C1751; C1757; C1769; J1100; J1642; J1644; J1940; J2370; J2405; J2704; J2720; J3010; J3370-JW; J3490; J7030; J7050; J7120; P9016; Q9967

== ENCOUNTER 2023-09-10 19:01 | Emergency (ER) | payer OTHER ==
[2023-09-10] MEDS ORDERED: Ondansetron PF 4 MG/2 ML Vial ONE (20:10)
[2023-09-10 20:32] LABS: #Monocytes 0.8 thou/uL (0.11-0.59); #Neutrophils 6.3 thou/uL (1.40-6.50); %Basophils 0.5 % (0.0-1.0); %Eosinophils 0.2 % (0.0-10.0); %Monocytes 9.4 % (0.0-10.0); %Neutrophils 71.2 % (42.0-75.0); Hematocrit 34.5 % (36.0-47.0); Hemoglobin 11.6 g/dL (12.0-16.0); Mean Corpuscular HGB CONC 33.6 g/dL (32.0-36.0); Mean Corpuscular Volume 80.2 fl (78.0-98.0); Mean Platelet Volume 9.3 fL (7.4-10.4); Platelet Count 423 10x3/uL (130-400); RBC Distribution Width 17.2 % (11.5-14.5); White Blood Cell (WBC) Count 8.8 10x3/uL (4.8-10.8)
[2023-09-10 20:48] LABS: ALT (SGPT) Less than 7 U/L (8-55); AST (SGOT) 17 U/L (5-34); Albumin 2.8 g/dL (3.4-4.8); Alkaline Phosphatase 59 U/L (40-110); Anion Gap 13 mmol/L (10-20); BUN (Urea Nitrogen) 7 mg/dL (9.8-20.1); Bilirubin, Total 0.6 mg/dL (0.2-1.2); Calc. Creatinine Clearance 0 mL/min (70-130); Carbon Dioxide 19 mmol/L (23-31); Chloride 108 mmol/L (98-107); Estimated GFR 95; Globulin 3.7 g/dL (2.4-3.5); Glucose 104 mg/dL (83-110); Lipase 17 U/L (8-78); Magnesium 1.3 mg/dL (1.6-2.6); Potassium 3.3 mmol/L (3.5-5.1); Protein, Total 6.5 g/dL (5.8-8.1); Sodium 137 mmol/L (136-145)
[2023-09-10 20:50] LABS: Troponin I 0.021 ng/mL (< 0.028)
[2023-09-10 21:26] LABS: Bacteria/HPF 4+ HPF (None Seen); Bilirubin Negative (Negative); Blood, Urine 3+ (Negative); CAUTI Indications for Culture Pelvic or flank pain; Clarity Extra Turbid (Clear); Glucose, Urine (Dipstick) Normal (Negative); Ketone, Urine Negative (Negative); Leukocyte 500 Leu/uL (Negative); Nitrite Negative (Negative); Protein, Urine (Dipstick) 30 mg/dL (Neg-Trace); Specific Gravity, Urine 1.003 (1.002-1.036); Squamous Epithelial None Seen HPF (0-3); WBC/HPF 21-50 HPF (0-3)
[2023-09-10 21:28] LABS: Urine Culture Reflex Yes Yes
[2023-09-10] MEDS ORDERED: cefTRIAXone (ROCEPHIN) 1 GM VIAL ONE (21:45)
[2023-09-10] MEDS ORDERED: Magnesium 2 GM/50 ML BAG (IN WATER) ONE (21:45)
[2023-09-10] MEDS ORDERED: Potassium Chloride 20 MEQ TAB ONE (21:45)
== END 2023-09-11 00:15 | disposition home or self-care (01) ==
LOC: ERS 19:01
DX: N39.0 Urinary tract infection, site not specified (principal); E87.6 Hypokalemia; E83.42 Hypomagnesemia; I10 Essential (primary) hypertension; J44.9 Chronic obstructive pulmonary disease, unspecified; F17.210 Nicotine dependence, cigarettes, uncomplicated
CPT/HCPCS: 36415; 51701; 71045; 80053; 81001; 83690; 83735; 84484; 85025; 87077; 87086; 87186; 93005; 96361; 96365; 96367; 96375; J0696; J2405; J3475

== ENCOUNTER 2023-12-27 10:30 | Inpatient (IN) | payer OTHER ==
[2023-12-27] MEDS ORDERED: Ondansetron PF 4 MG/2 ML Vial ONE (10:58)
[2023-12-27] MEDS ORDERED: Nitroglycerin 2% Ointment 1 INCH/1 GM Packet ONE (10:58)
[2023-12-27] MEDS ORDERED: Ipratropium/Albuterol 3 ML NEB ONE (10:59)
[2023-12-27 11:34] LABS: #Basophils 0.1 thou/uL (0.0-0.2); #Monocytes 0.4 thou/uL (0.11-0.59); #Neutrophils 3.5 thou/uL (1.40-6.50); %Basophils 1.2 % (0.0-1.0); %Eosinophils 0.3 % (0.0-10.0); %Monocytes 6.2 % (0.0-10.0); %Neutrophils 58.3 % (42.0-75.0); Hematocrit 38.6 % (36.0-47.0); Hemoglobin 12.6 g/dL (12.0-16.0); Mean Corpuscular HGB CONC 32.6 g/dL (32.0-36.0); Mean Corpuscular Hemoglobin 28.8 pg (27.0-31.0); Mean Corpuscular Volume 88.1 fl (78.0-98.0); Mean Platelet Volume 9.5 fL (7.4-10.4); Platelet Count 222 10x3/uL (130-400); RBC Distribution Width 18.2 % (11.5-14.5); Red Blood Cell (RBC) Count 4.38 mill/uL (4.20-5.40); White Blood Cell (WBC) Count 5.9 10x3/uL (4.8-10.8)
[2023-12-27 11:46] LABS: Bacteria/HPF 2+ HPF (None Seen); Bilirubin Negative (Negative); Blood, Urine Negative (Negative); CAUTI Indications for Culture Dysuria,urgency,freq; Clarity Clear (Clear); Glucose, Urine (Dipstick) Normal (Negative); Ketone, Urine Negative (Negative); Leukocyte Negative Leu/uL (Negative); Nitrite Negative (Negative); Protein, Urine (Dipstick) Negative (Neg-Trace); RBC/HPF None Seen HPF (0-3); Specific Gravity, Urine 1.008 (1.002-1.036); Squamous Epithelial 0-3 HPF (0-3); Urobilinogen Normal mg/dL (Less than 2); WBC/HPF 0-3 HPF (0-3); pH, Urine 6.5 (5.0-9.0)
[2023-12-27 11:48] LABS: Urine Culture Reflex No No
[2023-12-27 11:49] LABS: INR-International Normal Ratio 1.1; PTT 26.2 sec (22.9-36.1); Prothrombin Time 14.2 sec (12.0-14.7)
[2023-12-27 11:55] LABS: ALT (SGPT) 8 U/L (8-55); AST (SGOT) 22 U/L (5-34); Albumin 2.5 g/dL (3.4-4.8); Alkaline Phosphatase 78 U/L (40-110); Anion Gap 12 mmol/L (10-20); BUN (Urea Nitrogen) 4 mg/dL (9.8-20.1); Bilirubin, Total 0.4 mg/dL (0.2-1.2); Calc. Creatinine Clearance 0 mL/min (70-130); Calcium 7.9 mg/dL (7.8-10.44); Carbon Dioxide 25 mmol/L (23-31); Chloride 106 mmol/L (98-107); Estimated GFR 94; Globulin 4.1 g/dL (2.4-3.5); Glucose 80 mg/dL (83-110); Potassium 3.2 mmol/L (3.5-5.1); Protein, Total 6.6 g/dL (5.8-8.1); Sodium 140 mmol/L (136-145)
[2023-12-27 11:59] LABS: Troponin I 0.042 ng/mL (< 0.028)
[2023-12-27 12:06] LABS: SARS-CoV-2 NAA Rapid Test Not Detected (NotDetected)
[2023-12-27] MEDS ORDERED: Potassium Chloride 20 MEQ TAB ONE (12:40)
[2023-12-27] MEDS ORDERED: Furosemide 40 MG (4 mL) VIAL ONE (12:40)
[2023-12-27] MEDS ORDERED: hydrALAZINE 20 MG/ML VIAL ONE (12:40)
[2023-12-27] MEDS ORDERED: Ondansetron ODT 4 MG TAB PO PRN (13:26)
[2023-12-27] MEDS ORDERED: Acetaminophen 325 MG TAB PO PRN (13:26)
[2023-12-27] MEDS ORDERED: Acetaminophen 650 MG Suppository PR PRN (13:26)
[2023-12-27] MEDS ORDERED: Ondansetron PF 4 MG/2 ML Vial IVP PRN (13:26)
[2023-12-27] MEDS ORDERED: Bisacodyl 5 MG TAB PO PRN (13:26)
[2023-12-27] MEDS ORDERED: Nitroglycerin 0.4 MG TAB (25 Tab Bottle) SL PRN (13:26)
[2023-12-27] MEDS ORDERED: Senokot S 8.6-50 MG TAB PO PRN (13:26)
[2023-12-27] MEDS ORDERED: hydrALAZINE 20 MG/ML VIAL SLOW IVP PRN (13:32)
[2023-12-27] MEDS ORDERED: Artificial Tear Sol 15 ML BOT EA EYE PRN (13:32)
[2023-12-27] MEDS ORDERED: Moisturizing Cream (Eucerin) 113 GM JAR TOP PRN (13:32)
[2023-12-27] MEDS ORDERED: Sodium Chloride 0.65% Nasal 44 ML BOT EA NARE PRN (13:32)
[2023-12-27] MEDS ORDERED: Labetalol HCl 100 MG/20 ML VIAL SLOW IVP PRN (13:32)
[2023-12-27] MEDS ORDERED: Electrolyte Replacement Protocol 1 EACH FS SCH (13:45)
[2023-12-27 14:30] LABS: Lactic Acid 2.3 mmol/L (0.5-2.2)
[2023-12-27 14:41] LABS: Troponin I 0.026 ng/mL (< 0.028)
[2023-12-27] MEDS: Aspirin 325 MG TAB PO SCH (17:59)
[2023-12-27] MEDS: Enoxaparin 40 MG (0.4 mL) SYRINGE SC SCH (18:00)
[2023-12-27] MEDS: Losartan 25 MG TAB PO SCH (18:00)
[2023-12-27] MEDS: Nicotine 14 MG PATCH TD SCH (18:01)
[2023-12-27] MEDS: Furosemide 40 MG (4 mL) VIAL SLOW IVP SCH (18:01)
[2023-12-27] MEDS: Carvedilol 6.25 MG TAB PO SCH (18:02)
[2023-12-27] MEDS: Thiamine HCl 200 MG/2 ML VIAL SLOW IVP SCH (18:02)
[2023-12-27 18:22] LABS: Amphetamine Not Detected (NotDetected); Barbiturates Screen Not Detected (NotDetected); Benzodiazepine Screen Not Detected (NotDetected); Cocaine Metabolite Screen Not Detected (NotDetected); Methadone Not Detected (NotDetected); Methamphetamine Not Detected (NotDetected); Opiate Screen Not Detected (NotDetected); Oxycodone Screen Not Detected (NotDetected); Phencyclidine (PCP) Not Detected (NotDetected); THC/Cannabinoid Screen Not Detected (NotDetected); Tricyclic Screen Not Detected (NotDetected)
[2023-12-27] MEDS: Albumin 25% 25 GM (100 mL) BOT IVPB SCH (18:51)
[2023-12-27 19:26] LABS: Troponin I 0.029 ng/mL (< 0.028)
[2023-12-27] MEDS: Atorvastatin Calcium 40 MG TAB PO SCH (20:06)
[2023-12-27] MEDS: Famotidine 20 MG TAB PO SCH (20:06)
[2023-12-27] MEDS: Folic Acid 1 MG TAB PO SCH (20:06)
[2023-12-27] MEDS: Mirtazapine 15 MG TAB PO SCH (20:06)
[2023-12-27] MEDS: Multivit, Therapeutic 1 TAB PO SCH (20:06)
[2023-12-27] MEDS: Famotidine/PF 20 mg/2ml Vial SLOW IVP SCH (20:08)
[2023-12-28 04:49] LABS: #Monocytes 0.5 thou/uL (0.11-0.59); %Basophils 0.8 % (0.0-1.0); %Lymphocytes 39.4 % (21.0-51.0); %Monocytes 18.9 % (0.0-10.0); %Neutrophils 40.5 % (42.0-75.0); Hematocrit 36.2 % (36.0-47.0); Mean Corpuscular HGB CONC 33.1 g/dL (32.0-36.0); Mean Corpuscular Hemoglobin 28.8 pg (27.0-31.0); Mean Platelet Volume 10.1 fL (7.4-10.4); Platelet Count 246 10x3/uL (130-400); RBC Distribution Width 18.3 % (11.5-14.5); Red Blood Cell (RBC) Count 4.16 mill/uL (4.20-5.40); White Blood Cell (WBC) Count 2.5 10x3/uL (4.8-10.8)
[2023-12-28 05:12] LABS: ALT (SGPT) 10 U/L (8-55); AST (SGOT) 16 U/L (5-34); Albumin 2.9 g/dL (3.4-4.8); Alkaline Phosphatase 70 U/L (40-110); Anion Gap 9 mmol/L (10-20); BUN (Urea Nitrogen) 8 mg/dL (9.8-20.1); Bilirubin, Total 0.6 mg/dL (0.2-1.2); Calc. Creatinine Clearance 53 mL/min (70-130); Calcium 8.6 mg/dL (7.8-10.44); Carbon Dioxide 32 mmol/L (23-31); Cardiac Risk 2.2 (Less than 4.5); Chloride 105 mmol/L (98-107); Cholesterol 110 mg/dl (< 200 Desired); Estimated GFR 87; Globulin 3.8 g/dL (2.4-3.5); Glucose 119 mg/dL (83-110); HDL Cholesterol 49 mg/dL (>60 Neg Risk); LDL Cholesterol, Calculated 48 mg/dL; Magnesium 1.4 mg/dL (1.6-2.6); Potassium 3.7 mmol/L (3.5-5.1); Protein, Total 6.7 g/dL (5.8-8.1); Sodium 142 mmol/L (136-145); Triglycerides 66 mg/dL (Less than 150)
[2023-12-28] MEDS: Cilostazol 100 MG TAB PO SCH (08:25)
[2023-12-28] MEDS: Magnesium Sulfate In Water 4 GM in Premix 1 BAG IVPB SCH (08:25)
[2023-12-28] MEDS: Aspirin Chewable 81 MG TAB PO SCH (08:27)
[2023-12-28] MEDS: Enoxaparin 40 MG (0.4 mL) SYRINGE SC SCH (08:28)
[2023-12-28] MEDS: Ezetimibe 10 MG TAB PO SCH (08:28)
[2023-12-28] MEDS: DULoxetine 30 MG CAP PO SCH (08:28)
[2023-12-28] MEDS: Losartan 25 MG TAB PO SCH (08:28)
[2023-12-28] MEDS: Potassium Chloride 10 MEQ TAB PO SCH (08:30)
[2023-12-28] MEDS: Aspirin 300 MG Suppository PR SCH (08:30)
[2023-12-28 09:56] VITALS: BMI 18.3
[2023-12-28] MEDS: Empagliflozin 10 MG TAB PO SCH (13:01)
[2023-12-28] MEDS: Spironolactone 25 MG TAB PO SCH (13:01)
[2023-12-28] MEDS: Furosemide 40 MG (4 mL) VIAL SLOW IVP SCH (20:11)
[2023-12-29] MEDS: Furosemide 40 MG (4 mL) VIAL SLOW IVP SCH (05:33)
[2023-12-29 05:57] LABS: #Basophils 0.1 thou/uL (0.0-0.2); #Eosinphils 0.1 thou/uL (0.0-0.7); #Monocytes 0.5 thou/uL (0.11-0.59); #Neutrophils 3.1 thou/uL (1.40-6.50); %Basophils 0.9 % (0.0-1.0); %Eosinophils 0.9 % (0.0-10.0); %Lymphocytes 32.1 % (21.0-51.0); %Monocytes 8.9 % (0.0-10.0); Hematocrit 36.8 % (36.0-47.0); Hemoglobin 12.1 g/dL (12.0-16.0); Mean Corpuscular HGB CONC 32.9 g/dL (32.0-36.0); Mean Corpuscular Hemoglobin 28.8 pg (27.0-31.0); Mean Corpuscular Volume 87.6 fl (78.0-98.0); Mean Platelet Volume 10.3 fL (7.4-10.4); Platelet Count 251 10x3/uL (130-400); RBC Distribution Width 18.2 % (11.5-14.5); White Blood Cell (WBC) Count 5.4 10x3/uL (4.8-10.8)
[2023-12-29 06:20] LABS: Anion Gap 9 mmol/L (10-20); BUN (Urea Nitrogen) 8 mg/dL (9.8-20.1); Calc. Creatinine Clearance 56 mL/min (70-130); Calcium 8.7 mg/dL (7.8-10.44); Carbon Dioxide 32 mmol/L (23-31); Chloride 104 mmol/L (98-107); Estimated GFR 91; Glucose 79 mg/dL (83-110); Potassium 2.8 mmol/L (3.5-5.1); Sodium 142 mmol/L (136-145)
[2023-12-29 06:40] LABS: Magnesium 1.9 mg/dL (1.6-2.6)
[2023-12-29] MEDS: Magnesium 2 GM/50 ML(in water) 2 GM in Premix 1 BAG IVPB SCH (09:14)
[2023-12-29] MEDS: Potassium Chloride 20 MEQ TAB PO SCH (09:14)
[2023-12-29] MEDS: Spironolactone 25 MG TAB PO SCH (09:14)
[2023-12-29] MEDS: Empagliflozin 10 MG TAB PO SCH (09:15)
[2023-12-29] MEDS: Losartan 25 MG TAB PO SCH (09:16)
[2023-12-29 14:32] LABS: Anion Gap 10 mmol/L (10-20); BUN (Urea Nitrogen) 7 mg/dL (9.8-20.1); Calc. Creatinine Clearance 52 mL/min (70-130); Carbon Dioxide 32 mmol/L (23-31); Chloride 100 mmol/L (98-107); Estimated GFR 86; Glucose 80 mg/dL (83-110); Potassium 3.5 mmol/L (3.5-5.1); Sodium 138 mmol/L (136-145)
[2023-12-29 18:21] LABS: Potassium 3.8 mmol/L (3.5-5.1)
[2023-12-30 06:33] LABS: #Basophils 0.1 thou/uL (0.0-0.2); #Eosinphils 0.1 thou/uL (0.0-0.7); #Monocytes 0.6 thou/uL (0.11-0.59); #Neutrophils 2.8 thou/uL (1.40-6.50); %Basophils 0.9 % (0.0-1.0); %Eosinophils 1.1 % (0.0-10.0); %Lymphocytes 37.3 % (21.0-51.0); %Monocytes 10.5 % (0.0-10.0); Hematocrit 38.1 % (36.0-47.0); Hemoglobin 12.5 g/dL (12.0-16.0); Mean Corpuscular HGB CONC 32.8 g/dL (32.0-36.0); Mean Corpuscular Hemoglobin 28.7 pg (27.0-31.0); Mean Corpuscular Volume 87.6 fl (78.0-98.0); Mean Platelet Volume 10.3 fL (7.4-10.4); Platelet Count 234 10x3/uL (130-400); RBC Distribution Width 17.8 % (11.5-14.5); Red Blood Cell (RBC) Count 4.35 mill/uL (4.20-5.40); White Blood Cell (WBC) Count 5.6 10x3/uL (4.8-10.8)
[2023-12-30 07:01] LABS: Chloride 103 mmol/L (98-107); Potassium 4.3 mmol/L (3.5-5.1); Sodium 138 mmol/L (136-145)
[2023-12-30 07:11] LABS: Anion Gap 14 mmol/L (10-20); BUN (Urea Nitrogen) 8 mg/dL (9.8-20.1); Calc. Creatinine Clearance 50 mL/min (70-130); Carbon Dioxide 23 mmol/L (23-31); Estimated GFR 87; Glucose 64 mg/dL (83-110)
[2023-12-30 07:43] VITALS: BP 131/96; TEMP 98.1
[2023-12-30] MEDS: Thiamine 100 MG TAB PO SCH (10:20)
== END 2023-12-30 11:30 | disposition home or self-care (01) | DRG 291 ==
LOC: ERS 10:30 → 2SW 13:36 → OBSVTOIN 12-28 08:13
PROVIDERS: ADMIT Family Medicine; ATTEND Emergency Medicine
PROC: 30233J1 Transfusion of Nonautologous Serum Albumin into Peripheral Vein, Percutaneous Approach (ICD-10-PCS; principal; 2023-12-27)
DX: I11.0 Hypertensive heart disease with heart failure (principal); I50.33 Acute on chronic diastolic (congestive) heart failure; J96.01 Acute respiratory failure with hypoxia; E87.20 Acidosis, unspecified; F17.210 Nicotine dependence, cigarettes, uncomplicated; E88.09 Other disorders of plasma-protein metabolism, not elsewhere classified; E87.6 Hypokalemia; I25.10 Atherosclerotic heart disease of native coronary artery without angina pectoris; I73.9 Peripheral vascular disease, unspecified; J44.9 Chronic obstructive pulmonary disease, unspecified; Z95.5 Presence of coronary angioplasty implant and graft; I25.2 Old myocardial infarction; Z98.890 Other specified postprocedural states; Z91.041 Radiographic dye allergy status; Z79.899 Other long term (current) drug therapy; Z82.49 Family history of ischemic heart disease and other diseases of the circulatory system; Z83.3 Family history of diabetes mellitus; Z88.5 Allergy status to narcotic agent; Z88.8 Allergy status to other drugs, medicaments and biological substances; Z79.82 Long term (current) use of aspirin; Z79.51 Long term (current) use of inhaled steroids; Z11.52 Encounter for screening for COVID-19; E78.5 Hyperlipidemia, unspecified; Z79.01 Long term (current) use of anticoagulants
CPT/HCPCS: 36415; 71045; 80048; 80053; 80061; 80306; 81001; 82805; 83605; 83735; 83880; 84443; 84484; 85025; 85610; 85730; 87040; 93005; 93010; 93306; 93798; 94640; 94760; 96372; 96374; 96375; 96376; G0378; J0360; J1650; J1940; J2405; J3411; J3475; J7620; P9047

== ENCOUNTER 2023-12-30 12:28 | Emergency (ER) | payer OTHER ==
[2023-12-30 13:07] LABS: Actual Bicarbonate (HCO3v) 33.1 mEq/L (22-28); Analyzer IN Cardio ER; Calcium, Ionized (venous) 1.16 mmol/L (1.16-1.32); Chloride (VBG) 99 mmol/L (98-106); Hematocrit-VBG 46 % (36.0-47.0); Hemoglobin (Hb) 15.8 g/dL (11.7-16.1); Potassium (VBG) 3.95 mmol/L (3.70-5.30); Sodium 141 mmol/L (133-146); pH (venous) 7.381 (7.32-7.43)
[2023-12-30] MEDS ORDERED: Furosemide 40 MG (4 mL) VIAL ONE (13:07)
[2023-12-30 13:21] LABS: #Basophils 0.1 thou/uL (0.0-0.2); #Monocytes 0.8 thou/uL (0.11-0.59); %Basophils 0.5 % (0.0-1.0); %Eosinophils 0.2 % (0.0-10.0); %Lymphocytes 15.4 % (21.0-51.0); %Monocytes 6.1 % (0.0-10.0); %Neutrophils 77.1 % (42.0-75.0); Hematocrit 43.2 % (36.0-47.0); Hemoglobin 14.3 g/dL (12.0-16.0); Mean Corpuscular HGB CONC 33.1 g/dL (32.0-36.0); Mean Corpuscular Hemoglobin 28.7 pg (27.0-31.0); Mean Corpuscular Volume 86.7 fl (78.0-98.0); Mean Platelet Volume 10.2 fL (7.4-10.4); Platelet Count 225 10x3/uL (130-400); RBC Distribution Width 17.9 % (11.5-14.5); Red Blood Cell (RBC) Count 4.98 mill/uL (4.20-5.40)
[2023-12-30 13:48] LABS: Troponin I Less than 0.010 ng/mL (< 0.028)
[2023-12-30 13:49] LABS: ALT (SGPT) 7 U/L (8-55); AST (SGOT) 12 U/L (5-34); Albumin 3.1 g/dL (3.4-4.8); Alkaline Phosphatase 76 U/L (40-110); Anion Gap 13 mmol/L (10-20); BUN (Urea Nitrogen) 9 mg/dL (9.8-20.1); Bilirubin, Total 1.2 mg/dL (0.2-1.2); Calc. Creatinine Clearance 0 mL/min (70-130); Calcium 9.3 mg/dL (7.8-10.44); Carbon Dioxide 30 mmol/L (23-31); Chloride 99 mmol/L (98-107); Estimated GFR 79; Globulin 4.1 g/dL (2.4-3.5); Glucose 110 mg/dL (83-110); Protein, Total 7.2 g/dL (5.8-8.1); Sodium 138 mmol/L (136-145)
== END 2023-12-30 14:20 | disposition home or self-care (01) ==
LOC: ERS 12:28
DX: R06.00 Dyspnea, unspecified (principal); I11.0 Hypertensive heart disease with heart failure; I50.9 Heart failure, unspecified; J44.9 Chronic obstructive pulmonary disease, unspecified; E78.5 Hyperlipidemia, unspecified; F17.210 Nicotine dependence, cigarettes, uncomplicated; Z79.82 Long term (current) use of aspirin; Z79.899 Other long term (current) drug therapy; Z79.01 Long term (current) use of anticoagulants
CPT/HCPCS: 36415; 71045; 82805; 83880; 84484; 93005; 94640; J1940

== ENCOUNTER 2024-01-01 13:56 | Emergency (ER) | payer OTHER ==
[2024-01-01 14:46] LABS: Bacteria/HPF None Seen HPF (None Seen); Bilirubin Negative (Negative); Blood, Urine Negative (Negative); CAUTI Indications for Culture Alt mental st,lethar; Clarity Clear (Clear); Glucose, Urine (Dipstick) 500 mg/dL (Negative); Ketone, Urine Negative (Negative); Leukocyte Negative Leu/uL (Negative); Nitrite Negative (Negative); Protein, Urine (Dipstick) 10 mg/dL (Neg-Trace); RBC/HPF 0-3 HPF (0-3); Specific Gravity, Urine 1.012 (1.002-1.036); Squamous Epithelial None Seen HPF (0-3); Urobilinogen Normal mg/dL (Less than 2)
[2024-01-01 14:50] LABS: Urine Culture Reflex No No
[2024-01-01 15:06] LABS: Actual Bicarbonate (HCO3v) 29.1 mEq/L (22-28); Base Excess 4.5 mEq/L (-2.0 to +3.0); Calcium, Ionized (venous) 1.12 mmol/L (1.16-1.32); Chloride (VBG) 99 mmol/L (98-106); Hematocrit-VBG 42 % (36.0-47.0); Hemoglobin (Hb) 14.4 g/dL (11.7-16.1); Sodium 136 mmol/L (133-146); pH (venous) 7.445 (7.32-7.43)
[2024-01-01 15:12] LABS: #Monocytes 0.5 thou/uL (0.11-0.59); #Neutrophils 6.1 thou/uL (1.40-6.50); %Basophils 0.3 % (0.0-1.0); %Eosinophils 0.1 % (0.0-10.0); %Lymphocytes 14.2 % (21.0-51.0); %Monocytes 6.7 % (0.0-10.0); %Neutrophils 78.3 % (42.0-75.0); Hematocrit 39.1 % (36.0-47.0); Hemoglobin 12.9 g/dL (12.0-16.0); Mean Corpuscular Hemoglobin 29.1 pg (27.0-31.0); Mean Corpuscular Volume 88.3 fl (78.0-98.0); Mean Platelet Volume 10.5 fL (7.4-10.4); Platelet Count 209 10x3/uL (130-400); RBC Distribution Width 17.6 % (11.5-14.5); Red Blood Cell (RBC) Count 4.43 mill/uL (4.20-5.40); White Blood Cell (WBC) Count 7.8 10x3/uL (4.8-10.8)
[2024-01-01 15:26] LABS: PTT 28.3 sec (22.9-36.1); Prothrombin Time 13.6 sec (12.0-14.7)
[2024-01-01 15:35] LABS: ALT (SGPT) 8 U/L (8-55); AST (SGOT) 15 U/L (5-34); Alkaline Phosphatase 61 U/L (40-110); Anion Gap 17 mmol/L (10-20); BUN (Urea Nitrogen) 16 mg/dL (9.8-20.1); Bilirubin, Total 1.5 mg/dL (0.2-1.2); Calc. Creatinine Clearance 0 mL/min (70-130); Calcium 8.9 mg/dL (7.8-10.44); Carbon Dioxide 26 mmol/L (23-31); Chloride 98 mmol/L (98-107); Estimated GFR 86; Globulin 3.8 g/dL (2.4-3.5); Glucose 78 mg/dL (83-110); Potassium 3.6 mmol/L (3.5-5.1); Protein, Total 6.8 g/dL (5.8-8.1); Sodium 137 mmol/L (136-145)
[2024-01-01 15:38] LABS: Troponin I 0.022 ng/mL (< 0.028)
== END 2024-01-01 16:31 | disposition home or self-care (01) ==
LOC: ERS 13:56
DX: R55 Syncope and collapse (principal); I11.0 Hypertensive heart disease with heart failure; I50.9 Heart failure, unspecified; J44.9 Chronic obstructive pulmonary disease, unspecified; E78.5 Hyperlipidemia, unspecified; I25.10 Atherosclerotic heart disease of native coronary artery without angina pectoris; F17.210 Nicotine dependence, cigarettes, uncomplicated; Z79.82 Long term (current) use of aspirin; Z79.899 Other long term (current) drug therapy
CPT/HCPCS: 36415; 51701; 71045; 80053; 81001; 82805; 83605; 83880; 84484; 85025; 85610; 85730; 93005; 94760

== ENCOUNTER 2024-01-28 12:15 | Inpatient (IN) | payer MEDICARE, OTHER ==
[2024-01-28] MEDS ORDERED: dilTIAZem 125 MG/25 ML SDV ONE (12:30)
[2024-01-28 12:43] LABS: #Monocytes 0.5 thou/uL (0.11-0.59); %Basophils 0.8 % (0.0-1.0); %Eosinophils 0.4 % (0.0-10.0); %Lymphocytes 29.8 % (21.0-51.0); %Monocytes 9.4 % (0.0-10.0); %Neutrophils 59.4 % (42.0-75.0); Hematocrit 38.8 % (36.0-47.0); Mean Corpuscular HGB CONC 33.5 g/dL (32.0-36.0); Mean Corpuscular Hemoglobin 28.3 pg (27.0-31.0); Mean Corpuscular Volume 84.5 fl (78.0-98.0); Mean Platelet Volume 10.1 fL (7.4-10.4); Platelet Count 255 10x3/uL (130-400); RBC Distribution Width 17.1 % (11.5-14.5); Red Blood Cell (RBC) Count 4.59 mill/uL (4.20-5.40)
[2024-01-28 12:58] LABS: INR-International Normal Ratio 1.2; PTT 23.7 sec (22.9-36.1); Prothrombin Time 14.9 sec (12.0-14.7)
[2024-01-28] MEDS ORDERED: dilTIAZem 25 MG/5 ML VIAL ONE (13:04)
[2024-01-28 13:05] LABS: Troponin I 0.038 ng/mL (< 0.028)
[2024-01-28 13:07] LABS: ALT (SGPT) 10 U/L (8-55); AST (SGOT) 30 U/L (5-34); Albumin 2.8 g/dL (3.4-4.8); Alkaline Phosphatase 101 U/L (40-110); Anion Gap 15 mmol/L (10-20); BUN (Urea Nitrogen) 5 mg/dL (9.8-20.1); Bilirubin, Total 0.6 mg/dL (0.2-1.2); Calc. Creatinine Clearance 0 mL/min (70-130); Carbon Dioxide 25 mmol/L (23-31); Chloride 104 mmol/L (98-107); Estimated GFR 78; Globulin 4.7 g/dL (2.4-3.5); Glucose 82 mg/dL (83-110); Lipase 9 U/L (8-78); Magnesium 1.8 mg/dL (1.6-2.6); Potassium 5.5 mmol/L (3.5-5.1); Protein, Total 7.5 g/dL (5.8-8.1); Sodium 138 mmol/L (136-145)
[2024-01-28] MEDS ORDERED: Furosemide 40 MG (4 mL) VIAL ONE (14:00)
[2024-01-28] MEDS ORDERED: dilTIAZem 125 MG in Sodium Chloride 0.9% 100 ML IVPB SCH (15:30)
[2024-01-28] MEDS ORDERED: Senokot S 8.6-50 MG TAB PO PRN (15:32)
[2024-01-28] MEDS ORDERED: Acetaminophen 325 MG TAB PO PRN (15:32)
[2024-01-28] MEDS ORDERED: Ondansetron PF 4 MG/2 ML Vial IVP PRN (15:32)
[2024-01-28 18:48] VITALS: BMI 17.6
[2024-01-28 21:46] LABS: Troponin I 0.033 ng/mL (< 0.028)
[2024-01-28] MEDS: Furosemide 40 MG (4 mL) VIAL SLOW IVP SCH (22:04)
[2024-01-28] MEDS: Atorvastatin Calcium 40 MG TAB PO SCH (22:05)
[2024-01-28] MEDS: Carvedilol 25 MG TAB PO SCH (22:05)
[2024-01-28] MEDS: Digoxin 0.5 MG/2 ML AMP SLOW IVP SCH (22:05)
[2024-01-28] MEDS: Apixaban 5 MG TAB PO SCH (22:06)
[2024-01-29 04:57] LABS: #Basophils 0.1 thou/uL (0.0-0.2); #Eosinphils 0.1 thou/uL (0.0-0.7); #Monocytes 0.7 thou/uL (0.11-0.59); #Neutrophils 3.1 thou/uL (1.40-6.50); %Eosinophils 1.2 % (0.0-10.0); %Lymphocytes 21.5 % (21.0-51.0); %Monocytes 13.3 % (0.0-10.0); %Neutrophils 62.8 % (42.0-75.0); Hematocrit 33.9 % (36.0-47.0); Hemoglobin 11.3 g/dL (12.0-16.0); Mean Corpuscular HGB CONC 33.3 g/dL (32.0-36.0); Mean Corpuscular Hemoglobin 28.8 pg (27.0-31.0); Mean Corpuscular Volume 86.3 fl (78.0-98.0); Mean Platelet Volume 10.3 fL (7.4-10.4); Platelet Count 252 10x3/uL (130-400); RBC Distribution Width 16.9 % (11.5-14.5); Red Blood Cell (RBC) Count 3.93 mill/uL (4.20-5.40)
[2024-01-29 05:45] LABS: Anion Gap 14 mmol/L (10-20); BUN (Urea Nitrogen) 5 mg/dL (9.8-20.1); Calc. Creatinine Clearance 58 mL/min (70-130); Calcium 8.6 mg/dL (7.8-10.44); Carbon Dioxide 24 mmol/L (23-31); Chloride 105 mmol/L (98-107); Estimated GFR 92; Glucose 103 mg/dL (83-110); Potassium 2.8 mmol/L (3.5-5.1); Sodium 140 mmol/L (136-145)
[2024-01-29 06:04] LABS: Troponin I 0.039 ng/mL (< 0.028)
[2024-01-29] MEDS: Furosemide 20 MG (2 mL) VIAL SLOW IVP SCH (06:05)
[2024-01-29] MEDS ORDERED: Spironolactone 25 MG TAB PO SCH (08:00)
[2024-01-29] MEDS ORDERED: dilTIAZem 125 MG in Sodium Chloride 0.9% 100 ML IVPB SCH (08:12)
[2024-01-29] MEDS ORDERED: Furosemide 20 MG TAB PO SCH (09:00)
[2024-01-29] MEDS: Aspirin Chewable 81 MG TAB PO SCH (09:36)
[2024-01-29] MEDS: Losartan 25 MG TAB PO SCH (09:41)
[2024-01-29] MEDS: Carvedilol 25 MG TAB PO SCH (09:42)
[2024-01-29] MEDS: Digoxin 0.125 MG TAB PO SCH (09:44)
[2024-01-29] MEDS: Spironolactone 25 MG TAB PO SCH (09:47)
[2024-01-29] MEDS: Potassium Bicarbonate/Cit Ac 20 MEQ TAB PO SCH (09:47)
[2024-01-30 04:41] LABS: #Basophils 0.1 thou/uL (0.0-0.2); #Eosinphils 0.1 thou/uL (0.0-0.7); #Monocytes 0.8 thou/uL (0.11-0.59); #Neutrophils 3.1 thou/uL (1.40-6.50); %Basophils 0.9 % (0.0-1.0); %Eosinophils 1.9 % (0.0-10.0); %Lymphocytes 30.2 % (21.0-51.0); %Monocytes 13.4 % (0.0-10.0); %Neutrophils 53.3 % (42.0-75.0); Hematocrit 35.3 % (36.0-47.0); Hemoglobin 11.6 g/dL (12.0-16.0); Mean Corpuscular HGB CONC 32.9 g/dL (32.0-36.0); Mean Corpuscular Hemoglobin 28.5 pg (27.0-31.0); Mean Corpuscular Volume 86.7 fl (78.0-98.0); Mean Platelet Volume 10.1 fL (7.4-10.4); Platelet Count 218 10x3/uL (130-400); RBC Distribution Width 17.2 % (11.5-14.5); Red Blood Cell (RBC) Count 4.07 mill/uL (4.20-5.40); White Blood Cell (WBC) Count 5.8 10x3/uL (4.8-10.8)
[2024-01-30 05:41] LABS: Anion Gap 11 mmol/L (10-20); BUN (Urea Nitrogen) 9 mg/dL (9.8-20.1); Calc. Creatinine Clearance 56 mL/min (70-130); Calcium 8.5 mg/dL (7.8-10.44); Carbon Dioxide 31 mmol/L (23-31); Chloride 99 mmol/L (98-107); Estimated GFR 92; Glucose 81 mg/dL (83-110); Potassium 2.8 mmol/L (3.5-5.1); Sodium 138 mmol/L (136-145)
[2024-01-30] MEDS ORDERED: Electrolyte Replacement Protocol 1 EACH FS PRN (07:51)
[2024-01-30] MEDS ORDERED: Electrolyte Replacement Protocol FS PRN (08:00)
[2024-01-30] MEDS: Potassium Chloride 20 MEQ TAB PO SCH (09:24)
[2024-01-30] MEDS: Spironolactone 25 MG TAB PO SCH (09:24)
[2024-01-30 17:16] LABS: Potassium 3.8 mmol/L (3.5-5.1)
[2024-01-31 04:58] LABS: #Eosinphils 0.1 thou/uL (0.0-0.7); #Monocytes 0.9 thou/uL (0.11-0.59); #Neutrophils 3.2 thou/uL (1.40-6.50); %Basophils 0.6 % (0.0-1.0); %Eosinophils 1.7 % (0.0-10.0); %Lymphocytes 32.4 % (21.0-51.0); %Monocytes 13.5 % (0.0-10.0); %Neutrophils 51.5 % (42.0-75.0); Hematocrit 35.7 % (36.0-47.0); Hemoglobin 11.6 g/dL (12.0-16.0); Mean Corpuscular HGB CONC 32.5 g/dL (32.0-36.0); Mean Corpuscular Hemoglobin 28.2 pg (27.0-31.0); Mean Corpuscular Volume 86.7 fl (78.0-98.0); Mean Platelet Volume 10.1 fL (7.4-10.4); Platelet Count 267 10x3/uL (130-400); RBC Distribution Width 17.1 % (11.5-14.5); Red Blood Cell (RBC) Count 4.12 mill/uL (4.20-5.40); White Blood Cell (WBC) Count 6.3 10x3/uL (4.8-10.8)
[2024-01-31 05:57] LABS: Anion Gap 10 mmol/L (10-20); BUN (Urea Nitrogen) 11 mg/dL (9.8-20.1); Calc. Creatinine Clearance 60 mL/min (70-130); Calcium 8.7 mg/dL (7.8-10.44); Carbon Dioxide 29 mmol/L (23-31); Chloride 101 mmol/L (98-107); Estimated GFR 93; Glucose 90 mg/dL (83-110); Potassium 4.4 mmol/L (3.5-5.1); Sodium 136 mmol/L (136-145)
[2024-01-31] MEDS ORDERED: Nitroglycerin 0.4 MG TAB (25 Tab Bottle) SL PRN (07:34)
[2024-01-31] MEDS ORDERED: Albuterol 2.5 MG (3 mL) NEB NEB PRN (07:40)
[2024-01-31] MEDS: Potassium Chloride 10 MEQ TAB PO SCH (08:08)
[2024-01-31] MEDS: Empagliflozin 10 MG TAB PO SCH (08:08)
[2024-01-31] MEDS: DULoxetine 30 MG CAP PO SCH (08:08)
[2024-01-31 11:31] VITALS: TEMP 98.3
[2024-01-31 13:22] VITALS: BP 122/59
[2024-01-31] MEDS ORDERED: Ezetimibe 10 MG TAB PO SCH (21:00)
[2024-01-31] MEDS ORDERED: Mirtazapine 15 MG TAB PO SCH (21:00)
== END 2024-01-31 13:18 | disposition home or self-care (01) | DRG 280 ==
LOC: ERS 12:15 → ERHOLD 15:38 → 2NO 18:20
PROVIDERS: ADMIT Internal Medicine; ATTEND Emergency Medicine
DX: I11.0 Hypertensive heart disease with heart failure (principal); I21.A1 Myocardial infarction type 2; E43 Unspecified severe protein-calorie malnutrition; I50.23 Acute on chronic systolic (congestive) heart failure; J96.21 Acute and chronic respiratory failure with hypoxia; Z68.1 Body mass index [BMI] 19.9 or less, adult; Z66 Do not resuscitate; I25.10 Atherosclerotic heart disease of native coronary artery without angina pectoris; F17.210 Nicotine dependence, cigarettes, uncomplicated; J44.9 Chronic obstructive pulmonary disease, unspecified; E87.5 Hyperkalemia; Z96.649 Presence of unspecified artificial hip joint; Z88.5 Allergy status to narcotic agent; Z88.8 Allergy status to other drugs, medicaments and biological substances; Z79.82 Long term (current) use of aspirin; Z79.899 Other long term (current) drug therapy; Z98.890 Other specified postprocedural states
CPT/HCPCS: 36415; 70450; 71045; 80048; 80053; 83690; 83735; 83880; 84484; 85025; 85610; 85730; 93005; 96365; 96366; 96375; J1940

== ENCOUNTER 2024-08-10 13:24 | Inpatient (IN) | payer OTHER ==
[2024-08-10] MEDS ORDERED: Acetaminophen 650 MG Suppository PR PRN (17:00)
[2024-08-10] MEDS ORDERED: Dextrose 5% in Water 1,000 ML IV PRN (17:02)
[2024-08-10] MEDS ORDERED: Insulin Lispro 100 UNIT/ML 10 ML VIAL SC PRN ×2 (17:02)
[2024-08-10] MEDS ORDERED: Dextrose 50% Abboject 50 ML SYRINGE SLOW IVP PRN (17:02)
[2024-08-10] MEDS ORDERED: Glucagon 1 MG/ML KIT IM PRN (17:02)
[2024-08-10 17:41] LABS: Hematocrit 24.1 % (36.0-47.0); Hemoglobin 7.4 g/dL (12.0-16.0); Platelet Count 167 10x3/uL (130-400)
[2024-08-10 17:50] VITALS: BMI 18.1
[2024-08-10 17:56] LABS: Potassium 3.9 mmol/L (3.5-5.1)
[2024-08-10] MEDS: Morphine 2 MG/ML VIAL SLOW IVP PRN (19:56)
[2024-08-10] MEDS: Pantoprazole 80 MG, Admixture Fee 1 EACH in Sodium Chloride 0.9% 100 ML IVPB SCH (19:58)
[2024-08-10] MEDS: Lactated Ringer's 1,000 ML IV SCH (21:06)
[2024-08-11 00:04] LABS: Hematocrit 21.2 % (36.0-47.0); Hemoglobin 6.5 g/dL (12.0-16.0)
[2024-08-11] MEDS: hydrALAZINE 20 MG/ML VIAL SLOW IVP SCH (04:37)
[2024-08-11 05:04] LABS: #Basophils 0.07 10x3/uL (0.0-0.2); %Basophils 1.2 % (0.0-1.0); %Eosinophils 2.6 % (0.0-10.0); %Lymphocytes 32.9 % (21.0-51.0); %Monocytes 13.7 % (0.0-10.0); %Neutrophils 49.3 % (42.0-75.0); Hematocrit 26.3 % (36.0-47.0); Hemoglobin 8.4 g/dL (12.0-16.0); Mean Corpuscular HGB CONC 31.9 g/dL (32.0-36.0); Mean Corpuscular Hemoglobin 27.4 pg (27.0-31.0); Mean Corpuscular Volume 85.7 fL (78.0-98.0); Mean Platelet Volume 10.6 fL (7.4-10.4); Platelet Count 177 10x3/uL (130-400); RBC Distribution Width 17.2 % (11.5-14.5); Red Blood Cell (RBC) Count 3.07 mill/uL (4.20-5.40)
[2024-08-11 05:22] LABS: ALT (SGPT) 22 U/L (8-55); AST (SGOT) 24 U/L (5-34); Albumin 2.2 g/dL (3.4-4.8); Alkaline Phosphatase 79 U/L (40-110); Anion Gap 8 mmol/L (10-20); BUN (Urea Nitrogen) 8 mg/dL (9.8-20.1); Bilirubin, Total 0.7 mg/dL (0.2-1.2); Calc. Creatinine Clearance 67 mL/min (70-130); Calcium 8.4 mg/dL (7.8-10.44); Carbon Dioxide 25 mmol/L (23-31); Chloride 108 mmol/L (98-107); Estimated GFR 95; Globulin 3.3 g/dL (2.4-3.5); Glucose 68 mg/dL (83-110); Protein, Total 5.5 g/dL (5.8-8.1); Sodium 137 mmol/L (136-145)
[2024-08-11] MEDS: Digoxin 0.125 MG TAB PO SCH (10:30)
[2024-08-11] MEDS: Metoprolol Tartrate 25 MG TAB PO SCH (10:31)
[2024-08-11] MEDS: hydrALAZINE 20 MG/ML VIAL SLOW IVP PRN ×2 (12:09→20:12)
[2024-08-11 15:25] VITALS: BMI 18.1
[2024-08-11 20:07] LABS: #Basophils 0.05 10x3/uL (0.0-0.2); %Basophils 0.7 % (0.0-1.0); %Eosinophils 2.1 % (0.0-10.0); %Lymphocytes 27.6 % (21.0-51.0); %Neutrophils 56.3 % (42.0-75.0); Hemoglobin 8.8 g/dL (12.0-16.0); Mean Corpuscular HGB CONC 32.6 g/dL (32.0-36.0); Mean Corpuscular Hemoglobin 26.3 pg (27.0-31.0); Mean Corpuscular Volume 80.8 fL (78.0-98.0); Platelet Count 179 10x3/uL (130-400); RBC Distribution Width 15.5 % (11.5-14.5); Red Blood Cell (RBC) Count 3.34 mill/uL (4.20-5.40)
[2024-08-11] MEDS: Pantoprazole DR 40 MG TAB PO SCH (20:11)
[2024-08-11 20:12] LABS: Lactic Acid 0.94 mmol/L (0.5-2.2)
[2024-08-11 20:15] LABS: Anion Gap 8 mmol/L (10-20); BUN (Urea Nitrogen) 7 mg/dL (9.8-20.1); Calc. Creatinine Clearance 65 mL/min (70-130); Calcium 8.7 mg/dL (7.8-10.44); Carbon Dioxide 26 mmol/L (23-31); Chloride 106 mmol/L (98-107); Estimated GFR 94; Glucose 97 mg/dL (83-110); Potassium 3.9 mmol/L (3.5-5.1); Sodium 136 mmol/L (136-145)
[2024-08-11] MEDS: FUROSEMIDE IVPB SCH (22:16)
[2024-08-11] MEDS: SODIUM CHLORIDE IVPB SCH (22:16)
[2024-08-11] MEDS: ADMIXTURE FEE IVPB SCH (22:16)
[2024-08-12] MEDS: Metoprolol Tartrate 25 MG TAB PO SCH (09:54)
[2024-08-12 11:05] LABS: #Basophils 0.05 10x3/uL (0.0-0.2); %Basophils 0.8 % (0.0-1.0); %Eosinophils 0.6 % (0.0-10.0); %Lymphocytes 22.9 % (21.0-51.0); %Monocytes 11.2 % (0.0-10.0); %Neutrophils 64.2 % (42.0-75.0); Hematocrit 30.5 % (36.0-47.0); Hemoglobin 9.7 g/dL (12.0-16.0); Mean Corpuscular HGB CONC 31.8 g/dL (32.0-36.0); Mean Corpuscular Hemoglobin 25.2 pg (27.0-31.0); Mean Corpuscular Volume 79.2 fL (78.0-98.0); Mean Platelet Volume 9.8 fL (7.4-10.4); Platelet Count 196 10x3/uL (130-400); RBC Distribution Width 15.9 % (11.5-14.5); Red Blood Cell (RBC) Count 3.85 mill/uL (4.20-5.40)
[2024-08-12 11:28] LABS: ALT (SGPT) 19 U/L (8-55); AST (SGOT) 17 U/L (5-34); Albumin 2.3 g/dL (3.4-4.8); Alkaline Phosphatase 85 U/L (40-110); Anion Gap 11 mmol/L (10-20); BUN (Urea Nitrogen) 6 mg/dL (9.8-20.1); Bilirubin, Total 0.8 mg/dL (0.2-1.2); Calc. Creatinine Clearance 61 mL/min (70-130); Calcium 8.8 mg/dL (7.8-10.44); Carbon Dioxide 27 mmol/L (23-31); Chloride 100 mmol/L (98-107); Estimated GFR 93; Globulin 3.8 g/dL (2.4-3.5); Glucose 131 mg/dL (83-110); Magnesium 1.6 mg/dL (1.6-2.6); Protein, Total 6.1 g/dL (5.8-8.1); Sodium 135 mmol/L (136-145)
[2024-08-12] MEDS: Furosemide 40 MG (4 mL) VIAL SLOW IVP SCH (15:45)
[2024-08-12] MEDS: Potassium Chloride 20 MEQ in Premix 1 BAG IVPB SCH (15:45)
[2024-08-12] MEDS: Potassium Chloride 20 MEQ TAB PO SCH (16:38)
[2024-08-12] MEDS ORDERED: Acetaminophen 325 MG TAB PO PRN (20:14)
[2024-08-12] MEDS: Acetaminophen 500 MG TAB PO SCH (20:54)
[2024-08-12] MEDS: Apixaban 5 MG TAB PO SCH (20:56)
[2024-08-13] MEDS: Furosemide 40 MG (4 mL) VIAL SLOW IVP SCH (05:29)
[2024-08-13 05:58] LABS: #Basophils 0.04 10x3/uL (0.0-0.2); %Basophils 0.5 % (0.0-1.0); %Eosinophils 1.5 % (0.0-10.0); %Lymphocytes 20.7 % (21.0-51.0); %Monocytes 12.1 % (0.0-10.0); %Neutrophils 64.8 % (42.0-75.0); Hematocrit 29.6 % (36.0-47.0); Hemoglobin 9.7 g/dL (12.0-16.0); Mean Corpuscular HGB CONC 32.8 g/dL (32.0-36.0); Mean Corpuscular Hemoglobin 25.3 pg (27.0-31.0); Mean Corpuscular Volume 77.3 fL (78.0-98.0); Mean Platelet Volume 10.8 fL (7.4-10.4); Platelet Count 193 10x3/uL (130-400); RBC Distribution Width 16.6 % (11.5-14.5); Red Blood Cell (RBC) Count 3.83 mill/uL (4.20-5.40)
[2024-08-13 06:13] LABS: ALT (SGPT) 15 U/L (8-55); AST (SGOT) 19 U/L (5-34); Albumin 2.2 g/dL (3.4-4.8); Alkaline Phosphatase 82 U/L (40-110); Anion Gap 10 mmol/L (10-20); BUN (Urea Nitrogen) 16 mg/dL (9.8-20.1); Calc. Creatinine Clearance 61 mL/min (70-130); Calcium 9.1 mg/dL (7.8-10.44); Carbon Dioxide 30 mmol/L (23-31); Chloride 99 mmol/L (98-107); Estimated GFR 92; Globulin 3.9 g/dL (2.4-3.5); Glucose 82 mg/dL (83-110); Magnesium 1.4 mg/dL (1.6-2.6); Potassium 3.9 mmol/L (3.5-5.1); Protein, Total 6.1 g/dL (5.8-8.1); Sodium 135 mmol/L (136-145)
[2024-08-13] MEDS: Ibuprofen 200 MG TAB PO PRN (12:16)
[2024-08-14 05:59] LABS: #Basophils 0.06 10x3/uL (0.0-0.2); %Basophils 0.4 % (0.0-1.0); %Eosinophils 1.2 % (0.0-10.0); %Lymphocytes 16.3 % (21.0-51.0); %Monocytes 10.4 % (0.0-10.0); %Neutrophils 71.2 % (42.0-75.0); Hematocrit 31.3 % (36.0-47.0); Hemoglobin 9.9 g/dL (12.0-16.0); Mean Corpuscular HGB CONC 31.6 g/dL (32.0-36.0); Mean Corpuscular Hemoglobin 25.4 pg (27.0-31.0); Mean Corpuscular Volume 80.5 fL (78.0-98.0); Mean Platelet Volume 10.7 fL (7.4-10.4); Platelet Count 199 10x3/uL (130-400); RBC Distribution Width 16.9 % (11.5-14.5); Red Blood Cell (RBC) Count 3.89 mill/uL (4.20-5.40)
[2024-08-14 06:39] LABS: ALT (SGPT) 18 U/L (8-55); AST (SGOT) 20 U/L (5-34); Albumin 2.4 g/dL (3.4-4.8); Alkaline Phosphatase 102 U/L (40-110); Anion Gap 10 mmol/L (10-20); BUN (Urea Nitrogen) 20 mg/dL (9.8-20.1); Bilirubin, Total 0.7 mg/dL (0.2-1.2); Calc. Creatinine Clearance 57 mL/min (70-130); Calcium 9.2 mg/dL (7.8-10.44); Carbon Dioxide 28 mmol/L (23-31); Chloride 101 mmol/L (98-107); Estimated GFR 91; Globulin 4.1 g/dL (2.4-3.5); Glucose 90 mg/dL (83-110); Magnesium 1.6 mg/dL (1.6-2.6); Potassium 4.2 mmol/L (3.5-5.1); Protein, Total 6.5 g/dL (5.8-8.1); Sodium 135 mmol/L (136-145)
[2024-08-14] MEDS: Ondansetron PF 4 MG/2 ML Vial IVP PRN (20:08)
[2024-08-14] MEDS: Furosemide 40 MG (4 mL) VIAL SLOW IVP SCH (20:08)
[2024-08-15 05:36] LABS: #Basophils 0.05 10x3/uL (0.0-0.2); %Basophils 0.3 % (0.0-1.0); %Eosinophils 1.1 % (0.0-10.0); %Lymphocytes 10.8 % (21.0-51.0); %Monocytes 12.2 % (0.0-10.0); Hematocrit 32.2 % (36.0-47.0); Mean Corpuscular HGB CONC 31.1 g/dL (32.0-36.0); Mean Corpuscular Hemoglobin 25.3 pg (27.0-31.0); Mean Corpuscular Volume 81.5 fL (78.0-98.0); Mean Platelet Volume 10.7 fL (7.4-10.4); Platelet Count 220 10x3/uL (130-400); RBC Distribution Width 17.2 % (11.5-14.5); Red Blood Cell (RBC) Count 3.95 mill/uL (4.20-5.40)
[2024-08-15 05:58] LABS: Anion Gap 12 mmol/L (10-20); BUN (Urea Nitrogen) 17 mg/dL (9.8-20.1); Calc. Creatinine Clearance 44 mL/min (70-130); Calcium 9.4 mg/dL (7.8-10.44); Carbon Dioxide 25 mmol/L (23-31); Chloride 100 mmol/L (98-107); Estimated GFR 68; Glucose 85 mg/dL (83-110); Magnesium 1.6 mg/dL (1.6-2.6); Potassium 4.7 mmol/L (3.5-5.1); Sodium 132 mmol/L (136-145)
[2024-08-15] MEDS: Furosemide 40 MG (4 mL) VIAL SLOW IVP SCH (06:15)
[2024-08-15] MEDS: Empagliflozin 10 MG TAB PO SCH (08:38)
[2024-08-15] MEDS ORDERED: Iopamidol 370 76% 100 ML VIAL ONE (11:06)
[2024-08-15] MEDS ORDERED: cefTRIAXone\\ROCEPHIN 2 GM in Sodium Chloride 0.9% 100 ML IVPB SCH (15:00)
[2024-08-15 16:08] LABS: Influenza A by NAA Not Detected (NotDetected); Influenza B by NAA Not Detected (NotDetected); RSV by NAA Not Detected (NotDetected); SARS-CoV-2 NAA Rapid Test Not Detected (NotDetected)
[2024-08-15] MEDS: LevoFLOXacin 750 mg/D5W 750 MG in Premix 1 BAG IVPB SCH (18:27)
[2024-08-16 08:10] LABS: #Basophils 0.05 10x3/uL (0.0-0.2); %Basophils 0.2 % (0.0-1.0); %Eosinophils 1.4 % (0.0-10.0); %Lymphocytes 6.3 % (21.0-51.0); %Neutrophils 82.2 % (42.0-75.0); Hematocrit 31.5 % (36.0-47.0); Hemoglobin 9.7 g/dL (12.0-16.0); Mean Corpuscular HGB CONC 30.8 g/dL (32.0-36.0); Mean Corpuscular Hemoglobin 24.9 pg (27.0-31.0); Mean Platelet Volume 10.5 fL (7.4-10.4); Platelet Count 228 10x3/uL (130-400); RBC Distribution Width 17.1 % (11.5-14.5); Red Blood Cell (RBC) Count 3.89 mill/uL (4.20-5.40)
[2024-08-16 08:35] LABS: Anion Gap 12 mmol/L (10-20); BUN (Urea Nitrogen) 20 mg/dL (9.8-20.1); Calc. Creatinine Clearance 33 mL/min (70-130); Calcium 9.9 mg/dL (7.8-10.44); Carbon Dioxide 28 mmol/L (23-31); Chloride 96 mmol/L (98-107); Estimated GFR 50; Glucose 111 mg/dL (83-110); Magnesium 1.6 mg/dL (1.6-2.6); Potassium 4.8 mmol/L (3.5-5.1); Sodium 131 mmol/L (136-145)
[2024-08-16 11:22] LABS: Bacteria/HPF 2+ HPF (None Seen); Bilirubin Negative (Negative); Blood, Urine Negative (Negative); CAUTI Indications for Culture Fever or rigors; Clarity Clear (Clear); Glucose, Urine (Dipstick) 300 mg/dL (Negative); Ketone, Urine Negative (Negative); Leukocyte 250 Leu/uL (Negative); Nitrite Negative (Negative); Protein, Urine (Dipstick) Negative (Neg-Trace); RBC/HPF 0-3 HPF (0-3); Specific Gravity, Urine 1.017 (1.002-1.036); Squamous Epithelial 0-3 HPF (0-3); Urobilinogen Normal mg/dL (Less than 2)
[2024-08-16 11:49] VITALS: TEMP 97.9
[2024-08-16 11:52] LABS: Urine Culture Reflex No No
[2024-08-16 15:20] VITALS: BP 115/66
[2024-08-17] MEDS ORDERED: Furosemide 40 MG TAB PO SCH (09:00)
== END 2024-08-16 17:18 | disposition home health service (06) | DRG 377 ==
LOC: 2NO 16:24
PROVIDERS: ADMIT Internal Medicine; ATTEND Family Medicine
DX: K92.2 Gastrointestinal hemorrhage, unspecified (principal); J96.01 Acute respiratory failure with hypoxia; J93.9 Pneumothorax, unspecified; I50.22 Chronic systolic (congestive) heart failure; I48.20 Chronic atrial fibrillation, unspecified; J44.9 Chronic obstructive pulmonary disease, unspecified; D50.0 Iron deficiency anemia secondary to blood loss (chronic); E78.5 Hyperlipidemia, unspecified; I25.10 Atherosclerotic heart disease of native coronary artery without angina pectoris; I73.9 Peripheral vascular disease, unspecified; N18.9 Chronic kidney disease, unspecified; F12.10 Cannabis abuse, uncomplicated; E87.6 Hypokalemia; E87.8 Other disorders of electrolyte and fluid balance, not elsewhere classified; Z88.5 Allergy status to narcotic agent; Z88.8 Allergy status to other drugs, medicaments and biological substances; Z71.6 Tobacco abuse counseling
CPT/HCPCS: 0241U; 36415; 36416; 36430; 71045; 71260; 74176; 80048; 80053; 81001; 83605; 83735; 84145; 85025; 86850; 86900; 86901; 86921; 87040; 93306; 97139; J0360; J1940; J1956; J2272; J2405; J2470; J3480; J7120; P9016

== ENCOUNTER 2024-08-18 10:02 | Inpatient (IN) | payer OTHER ==
[2024-08-18 10:56] LABS: #Basophils 0.06 10x3/uL (0.0-0.2); %Basophils 0.5 % (0.0-1.0); %Eosinophils 6.4 % (0.0-10.0); %Lymphocytes 15.6 % (21.0-51.0); %Monocytes 10.8 % (0.0-10.0); %Neutrophils 66.3 % (42.0-75.0); Hematocrit 35.7 % (36.0-47.0); Hemoglobin 10.5 g/dL (12.0-16.0); Mean Corpuscular HGB CONC 29.4 g/dL (32.0-36.0); Mean Corpuscular Hemoglobin 25.1 pg (27.0-31.0); Mean Corpuscular Volume 85.4 fL (78.0-98.0); Mean Platelet Volume 10.2 fL (7.4-10.4); Platelet Count 229 10x3/uL (130-400); RBC Distribution Width 17.1 % (11.5-14.5); Red Blood Cell (RBC) Count 4.18 mill/uL (4.20-5.40)
[2024-08-18 11:15] LABS: ALT (SGPT) 16 U/L (8-55); AST (SGOT) 29 U/L (5-34); Albumin 2.3 g/dL (3.4-4.8); Alkaline Phosphatase 123 U/L (40-110); Anion Gap 14 mmol/L (10-20); BUN (Urea Nitrogen) 15 mg/dL (9.8-20.1); Bilirubin, Total 0.4 mg/dL (0.2-1.2); Calc. Creatinine Clearance 0 mL/min (70-130); Carbon Dioxide 23 mmol/L (23-31); Chloride 101 mmol/L (98-107); Estimated GFR 80; Globulin 4.2 g/dL (2.4-3.5); Glucose 106 mg/dL (83-110); Potassium 3.7 mmol/L (3.5-5.1); Protein, Total 6.5 g/dL (5.8-8.1); Sodium 134 mmol/L (136-145)
[2024-08-18 11:18] LABS: Troponin I 0.018 ng/mL (< 0.028)
[2024-08-18] MEDS ORDERED: Nitroglycerin 2% Ointment 1 INCH/1 GM Packet ONE (11:51)
[2024-08-18] MEDS ORDERED: Calcium Carbonate 500 MG ChewTAB PO PRN (12:48)
[2024-08-18] MEDS ORDERED: Acetaminophen 325 MG TAB PO PRN (12:48)
[2024-08-18] MEDS ORDERED: Senokot S 8.6-50 MG TAB PO PRN (12:48)
[2024-08-18] MEDS ORDERED: Ondansetron PF 4 MG/2 ML Vial IVP PRN (12:48)
[2024-08-18] MEDS ORDERED: Guaifenesin DM 100-10/5 ML UDCUP PO PRN (12:48)
[2024-08-18 13:25] VITALS: BMI 15.1
[2024-08-18 13:34] LABS: Troponin I 0.021 ng/mL (< 0.028)
[2024-08-18] MEDS: methylPREDNISolone Sod Succ 40 MG VIAL IVP SCH (14:35)
[2024-08-18 17:41] LABS: Troponin I Less than 0.010 ng/mL (< 0.028)
[2024-08-18] MEDS: Ipratropium/Albuterol 3 ML NEB NEB SCH (18:30)
[2024-08-18] MEDS: Arformoterol 15 MCG/2 ML NEB NEB SCH (18:32)
[2024-08-18] MEDS: Ezetimibe 10 MG TAB PO SCH (21:02)
[2024-08-18] MEDS: Apixaban 5 MG TAB PO SCH (21:03)
[2024-08-18] MEDS: Atorvastatin Calcium 40 MG TAB PO SCH (21:03)
[2024-08-18] MEDS: Magnesium Oxide 400 MG TAB PO SCH (21:03)
[2024-08-18] MEDS: Pantoprazole DR 40 MG TAB PO SCH (21:03)
[2024-08-19 03:53] LABS: #Basophils 0.04 10x3/uL (0.0-0.2); %Basophils 0.4 % (0.0-1.0); %Lymphocytes 6.9 % (21.0-51.0); %Monocytes 2.5 % (0.0-10.0); %Neutrophils 88.7 % (42.0-75.0); Hematocrit 29.8 % (36.0-47.0); Mean Corpuscular HGB CONC 30.2 g/dL (32.0-36.0); Mean Corpuscular Hemoglobin 24.9 pg (27.0-31.0); Mean Corpuscular Volume 82.5 fL (78.0-98.0); Mean Platelet Volume 9.8 fL (7.4-10.4); Platelet Count 296 10x3/uL (130-400); RBC Distribution Width 16.8 % (11.5-14.5); Red Blood Cell (RBC) Count 3.61 mill/uL (4.20-5.40)
[2024-08-19 04:14] LABS: Anion Gap 11 mmol/L (10-20); BUN (Urea Nitrogen) 14 mg/dL (9.8-20.1); Calc. Creatinine Clearance 44 mL/min (70-130); Calcium 9.4 mg/dL (7.8-10.44); Carbon Dioxide 29 mmol/L (23-31); Chloride 102 mmol/L (98-107); Estimated GFR 87; Glucose 159 mg/dL (83-110); Potassium 3.8 mmol/L (3.5-5.1); Sodium 138 mmol/L (136-145)
[2024-08-19] MEDS: hydrALAZINE 25 MG TAB PO SCH (04:24)
[2024-08-19] MEDS ORDERED: Non-Formulary Item 1 EACH (Atorvastatin Calcium [Atorvastatin Calcium] 80 MG Tablet) PO SCH (09:00)
[2024-08-19] MEDS ORDERED: Ondansetron ODT 4 MG TAB SL PRN (09:06)
[2024-08-19 10:03] VITALS: BMI 15.0
[2024-08-19] MEDS: LevoFLOXacin 750 MG TAB PO SCH (10:06)
[2024-08-19] MEDS: Aspirin Chewable 81 MG TAB PO SCH (10:07)
[2024-08-19] MEDS: Empagliflozin 10 MG TAB PO SCH (10:07)
[2024-08-19] MEDS: Pregabalin 75 MG CAP PO SCH (10:07)
[2024-08-19] MEDS: Amlodipine 5 MG TAB PO SCH (14:13)
[2024-08-20 04:24] LABS: #Basophils 0.05 10x3/uL (0.0-0.2); %Basophils 0.5 % (0.0-1.0); %Eosinophils 7.8 % (0.0-10.0); %Lymphocytes 20.1 % (21.0-51.0); %Monocytes 10.3 % (0.0-10.0); %Neutrophils 60.9 % (42.0-75.0); Hematocrit 28.1 % (36.0-47.0); Hemoglobin 8.5 g/dL (12.0-16.0); Mean Corpuscular HGB CONC 30.2 g/dL (32.0-36.0); Mean Corpuscular Hemoglobin 25.6 pg (27.0-31.0); Mean Corpuscular Volume 84.6 fL (78.0-98.0); Mean Platelet Volume 10.2 fL (7.4-10.4); Platelet Count 304 10x3/uL (130-400); RBC Distribution Width 16.7 % (11.5-14.5); Red Blood Cell (RBC) Count 3.32 mill/uL (4.20-5.40)
[2024-08-20 04:41] LABS: ALT (SGPT) 26 U/L (8-55); AST (SGOT) 43 U/L (5-34); Alkaline Phosphatase 96 U/L (40-110); Anion Gap 7 mmol/L (10-20); BUN (Urea Nitrogen) 13 mg/dL (9.8-20.1); Bilirubin, Total 0.3 mg/dL (0.2-1.2); Calc. Creatinine Clearance 50 mL/min (70-130); Calcium 9.6 mg/dL (7.8-10.44); Carbon Dioxide 30 mmol/L (23-31); Chloride 104 mmol/L (98-107); Estimated GFR 92; Globulin 3.8 g/dL (2.4-3.5); Glucose 95 mg/dL (83-110); Potassium 3.1 mmol/L (3.5-5.1); Protein, Total 5.8 g/dL (5.8-8.1); Sodium 138 mmol/L (136-145)
[2024-08-20] MEDS ORDERED: Electrolyte Replacement Protocol 1 EACH FS SCH (08:30)
[2024-08-20 09:14] LABS: Hematocrit 31.1 % (36.0-47.0); Hemoglobin 9.2 g/dL (12.0-16.0)
[2024-08-20 09:32] LABS: Iron 30 ug/dL (50-170); Iron Binding Capacity, Total 313 mcg/dL (265-497)
[2024-08-20] MEDS: Amlodipine 5 MG TAB PO SCH (10:06)
[2024-08-20] MEDS: Potassium Chloride 20 MEQ TAB PO SCH (10:06)
[2024-08-20] MEDS: LevoFLOXacin 500 MG TAB PO SCH (10:07)
[2024-08-20] MEDS: predniSONE 20 MG TAB PO SCH (10:07)
[2024-08-20 14:47] LABS: Potassium 4.6 mmol/L (3.5-5.1)
[2024-08-21 07:25] LABS: #Basophils 0.03 10x3/uL (0.0-0.2); %Basophils 0.3 % (0.0-1.0); %Eosinophils 0.6 % (0.0-10.0); %Lymphocytes 15.8 % (21.0-51.0); %Monocytes 10.2 % (0.0-10.0); %Neutrophils 72.7 % (42.0-75.0); Hematocrit 27.1 % (36.0-47.0); Hemoglobin 8.2 g/dL (12.0-16.0); Mean Corpuscular HGB CONC 30.3 g/dL (32.0-36.0); Mean Corpuscular Hemoglobin 25.9 pg (27.0-31.0); Mean Corpuscular Volume 85.8 fL (78.0-98.0); Platelet Count 308 10x3/uL (130-400); RBC Distribution Width 16.9 % (11.5-14.5); Red Blood Cell (RBC) Count 3.16 mill/uL (4.20-5.40)
[2024-08-21 07:49] LABS: ALT (SGPT) 31 U/L (8-55); AST (SGOT) 40 U/L (5-34); Alkaline Phosphatase 90 U/L (40-110); Anion Gap 7 mmol/L (10-20); BUN (Urea Nitrogen) 11 mg/dL (9.8-20.1); Bilirubin, Total 0.3 mg/dL (0.2-1.2); Calc. Creatinine Clearance 53 mL/min (70-130); Calcium 9.5 mg/dL (7.8-10.44); Carbon Dioxide 27 mmol/L (23-31); Chloride 105 mmol/L (98-107); Estimated GFR 91; Globulin 3.7 g/dL (2.4-3.5); Glucose 136 mg/dL (83-110); Potassium 3.8 mmol/L (3.5-5.1); Protein, Total 5.7 g/dL (5.8-8.1); Sodium 135 mmol/L (136-145)
[2024-08-21 12:38] VITALS: BP 151/69; TEMP 98
== END 2024-08-21 14:30 | disposition home or self-care (01) | DRG 200 ==
LOC: ERS 10:02 → 2SW 11:52 → OBSVTOIN 08-20 14:40
PROVIDERS: ADMIT Internal Medicine; ATTEND Hospitalist
DX: J93.9 Pneumothorax, unspecified (principal); J44.1 Chronic obstructive pulmonary disease with (acute) exacerbation; J96.11 Chronic respiratory failure with hypoxia; Z68.1 Body mass index [BMI] 19.9 or less, adult; Z51.5 Encounter for palliative care; I10 Essential (primary) hypertension; D50.9 Iron deficiency anemia, unspecified; E88.09 Other disorders of plasma-protein metabolism, not elsewhere classified; I25.10 Atherosclerotic heart disease of native coronary artery without angina pectoris; I73.9 Peripheral vascular disease, unspecified; Z88.8 Allergy status to other drugs, medicaments and biological substances; Z88.5 Allergy status to narcotic agent; R63.6 Underweight
CPT/HCPCS: 36415; 36416; 71045; 80048; 80053; 82728; 83540; 83550; 83880; 84484; 85025; 93005; 94640; 96374; 96376; 97139; G0378; J2919; J7512; J7620